=== PATIENT | male | born 1935 | race African-American/Black ===

== ENCOUNTER 2016-09-03 15:04 | Inpatient (IN) ==
[2016-09-03] MEDS ORDERED: ALBUTEROL 2.5 MG/3 ML NEB RESP TX PRN (21:46)
[2016-09-03] MEDS ORDERED: ONDANSETRON 4 MG/2 ML VIAL IV PRN (21:46)
[2016-09-03] MEDS ORDERED: hydrALAZINE 20 MG/1 ML VIAL ONE (22:03)
[2016-09-03] MEDS ORDERED: hydrALAZINE 20 MG/1 ML VIAL IV PRN (22:16)
[2016-09-03 22:34] LABS: Basophils % 0.1 % (0.0-0.8); Hematocrit 30.5 VOL% (42.0-52.0); Hemoglobin 10.4 GM/DL (14.0-18.0); Immature Granulocytes % 0.5 %; Immature Granulocytes Absolute 0.05 #; Lymphocytes # 1.9 10*3/uL (1.4-4.0); Lymphocytes % 18.1 % (21.2-54.2); Mean Corpuscular HGB Conc 34.1 GM/DL (32-36); Mean Corpuscular Hemoglobin 31 PG (27-34); Mean Corpuscular Volume 90.5 FL (87-102); Mean Platelet Volume 10.6 FL (9.6-12.0); Monocytes # 0.9 10*3/uL (0.11-0.8); Monocytes % 8.5 % (1.7-12.7); Neutrophils # 7.6 10*3/uL (1.4-7.4); Neutrophils % 72.8 % (38.7-73.9); Platelet Count 168 T/CUMM (130-400); Red Blood Count 3.37 MC/CUMM (3.8-5.5); Red Cell Distribution Width 13.3 % (9.3-17.3); White Blood Count 10.4 T/CUMM (4-12)
[2016-09-03 22:58] LABS: Calcium 8.3 MG/DL (8.5-10.1); Osmolality,Calculated 286.7 MOS/KG (273-304); Potassium 3.5 MMOL/L (3.5-5.1)
[2016-09-03] MEDS: SODIUM CHLORIDE 0.9% 1,000 ML IV SCH (23:05)
--- NOTE | 2016-09-03 23:32 | Hospitalist History & Physical ---
Assessment and Plan (1) Subdural hematoma Status: Acute Current Visit: No (2) Coronary artery disease Status: Acute Current Visit: No (3) Mental status change Status: Acute Assessment and plan: Our plan for this patient will be admitting him to our ICU. We will control his blood pressure. Can get PT OT and ST to evaluate him. We will also get Dr. Chawla input. Can repeat the CT scan in the morning. We will get psychotherapist social worker evaluation and input for rehab versus swing bed Current Visit: No History of Present Illness Chief complaint: Transfer from [facility] History of present illness: Mr. Espinal is a 81 year old male with past medical history of STEMI, coronary artery disease, and syncope who was admitted to our hospital on 09/01/2012. During the trans-for the patient from home to the ER he had apparently 3 shocks by EMS to defibrillate him. He was given Lovenox and aspirin 1 dose. His initial EKG did not show an acute ST elevation. He denied chest pain. A second EKG had a rhythm that did show a new ST elevation in the inferior leads. Patient was taken to the [facility]. The woods laborer revealed a complete occlusion of the right coronary artery in its mid segment but. He was treated with balloon angioplasty. No stent was placed due to subdural hematomas and the concern of giving additional anticoagulation. During the catheterization the patient had a mental status change became unresponsive which led to emergent intubation in the [facility]. The mental status changes may have been secondary to transient hypotension or the change in the subdural hematomas. He went back for repeat CT scan which showed enlargement of the acute/subacute subdural hematoma from 3 mm in size to 4.5 mm. We do not have neurosurgery or neurology available to the hospital at that time. Dr. Vergara contacted [facility] and he was transferred there on September 01. Patient was admitted to the neuro ICU at [facility]. He was evaluated by the neurosurgery team. He was able to be extubated. He was awake alert and following commands. He was oriented to self city in age. Patient does not need any surgical intervention according to the neurosurgery team. The decision was made to restart a 81 mg aspirin daily because the patient had a STEMI 2 days ago. I recommended that Plavix be restarted if no acute bleeding can be done in 1 week. He will have a follow-up appointment with neurosurgery team at 6 weeks. Patient was being transferred back to the [facility] on September 03. Patient was receiving OT PT and ST evaluation. There was some concern that he could not swallow. He will get combative at times. Home Medications Medication Instructions Recorded Confirmed Type Atorvastatin [Lipitor] 20 mg PO BEDTIME 05/31/16 09/01/16 History Furosemide Tab [Lasix Tab] 20 mg PO DAILY 05/31/16 09/01/16 History Omeprazole 20 mg PO BEDTIME 05/31/16 09/01/16 History Tamsulosin [Flomax] 0.4 mg PO BEDTIME 05/31/16 09/01/16 History Valsartan 160 mg PO BEDTIME 05/31/16 09/01/16 History levETIRAcetam [Levetiracetam] 500 mg PO BID 05/31/16 09/01/16 History Megestrol Liquid [Megace Liquid] 10 ml PO BID 06/16/16 09/01/16 History Clorazepate [Tranxene] 3.75 mg PO DAILY PRN 09/01/16 09/01/16 History Allergies Allergy/AdvReac Type Severity Reaction Status Date / Time No Known Allergies Allergy Unverified 06/16/16 12:28 Medical,Surgical,& Family Hx - Medical History Cardio: History of: Cardiac Dysrhythmia, Cerebrovascular Disease, CHF, CAD, Hypertension, [place] No history of: Congenital Heart Disease, Pacemaker, PVD, Valvular Heart Disease, Cardiovascular Problems Neurology: History of: Cerebral Hemorrhage, Cerebrovascular Accident (multiple strokes), Seizures No history of: Brain Aneurysm, Cerebral Palsy, Dementia, Migraine, Multiple Sclerosis, Parkinson's Disease, Peripheral Neuropathy, TIA, Vertigo, Neurologocal Cancer Endocrine: History of: Dyslipidemia Renal: No history of: Renal (Kidney) Cancer, Dialysis, Renal Failure, Renal Problems Genitourinary: History of: Prostate Problems (prostate cancer) No history of: Bladder Problem, Kidney Stones, Recurring Urinary Tract Infections, Genitourinary Cancer, Problems Other: History of: Miscellaneous Medical Problems (DVT) - Surgical History Cardiac Surgeries: Sugical HX of: Cardiac Catheterization Patient Denies: Femoral-Popliteal Bypass Graft, Cardiac Surgery, Carotid Endarterectomy, Internal Defibrillator, Vascular Access Devices Thoracic Surgeries: Patient denies;: Kidney (Renal Surgery), Lithotripsy, Nephrectomy, Organ Transplant Neurologic Surgeries: Surgical HX of: Cerebral Hemorrhage Patient denies: Brain Aneurysm, Neurologic Surgery HEENT Surgeries: Patient denies: Carotid Endarterectomy Abdominal Surgeries: Patient denies: Splenectomy Reproductive Surgeries: Patient denies;: Cystoscopy, Genitourinary Surgery, Prostate Surgery - Family History Additional Family History: Unable to obtain - Social History Smoking Status: Never smoker 12 point system: reviewed and no additional remarkable complaints except as stated Exam - Constitutional Vitals: Period Temp Pulse Resp BP Sys/Mcfarlane Pulse Ox Last 24 Hr 97.8 F 95-100 18-18 111-124/67-69 General appearance: normal weight - Head Head exam: Present: normal inspection - Eye Eye exam: Present: EOMI Pupils: Present: ALLEN - ENT ENT exam: Present: normal exam - Neck Neck exam: Present: normal inspection - Respiratory Respiratory exam: Present: clear to auscultation bilaterally - Cardiovascular Cardiovascular exam: Present: regular rate and rhythm - GI/Abdominal GI/Abdominal exam: Present: normal bowel sounds - Extremities Exam Extremities exam: Present: normal inspection - Back Exam Back exam: Present: normal inspection - Neurological Exam Neurological exam: Present: other (Patient has obvious weakness on the left side. He is hand is in a crypt position. 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 There is obvious weakness in his left lower extremity and his right lower extremity. Patient seems to be confused about following commands.) Results - Labs CBC & BMP: 09/03/16 22:09 09/03/16 22:09
[2016-09-04] MEDS ORDERED: POTASSIUM CHLORIDE RIDER 20 MEQ in PREMIX 1 EACH IV PRN
[2016-09-04] MEDS ORDERED: POTASSIUM CHLORIDE RIDER 10 MEQ in PREMIX 1 EACH IV PRN
[2016-09-04] MEDS ORDERED: CLORAZEPATE 3.75 MG TABLET PO PRN (02:00)
[2016-09-04] MEDS: ATENOLOL 25 MG TABLET PO SCH (09:07)
[2016-09-04] MEDS: FUROSEMIDE 20 MG TABLET PO SCH (09:07)
[2016-09-04] MEDS: ATORVASTATIN 80 MG TABLET PO SCH (09:07)
[2016-09-04] MEDS: SODIUM CHLORIDE 0.9% 1,000 ML IV SCH (09:07)
[2016-09-04] MEDS: levETIRAcetam 500 MG TABLET PO SCH ×2 (09:07→21:30)
[2016-09-04] MEDS: ASPIRIN CHEW 81 MG TABLET PO SCH (09:07)
[2016-09-04 12:58] LABS: Apearance,Urine CLEAR (Clear); Bilirubin,Urine Negative (Negative); Blood, Urine Moderate mg/dL (Negative); Glucose,Urine (UA) Negative (Negative); Hyaline Casts,Urine 2 /LPF (0-3); Ketones,Urine 5 mg/dL (Negative); Mucus,Urine Occasional /LPF (Occasional); Nitrite,Urine Negative (Negative); Protein,Urine Negative; RBC,Urine 6 /HPF (0-4); Squamous Epithelial Cell,Urine Occasional /HPF (0-10); Urine Color Straw (Yellow); Urine Specific Gravity 1.009 (1.001-1.035); Urine Urobilinogen < 2.0 EU/DL (0.2-1.0); WBC,Urine 5 /HPF (0-6)
--- NOTE | 2016-09-04 13:23 | Hospitalist Progress Note ---
Assessment and Plan (1) Acute ST elevation myocardial infarction (STEMI) of inferior wall Status: Acute Assessment and plan: Hemodynamically stable. Continue with blood pressure control, high intensity statin, ASA. Low dose diuretic therapy with furosemide. No acute issues noted. Current Visit: Yes (2) Subdural hematoma Status: Acute Assessment and plan: Stable after NSGY evaluation at [facility]. Continuing to monitor for any acute mental status changes. Only on Aspirin. No anticoagulation. Patient is hemodynamically stable as well as cognitively stable. Will transfer out of the ICU today with a plan to work on swing bed/short term rehab. Continue with PT/ OT. Current Visit: Yes (3) Coronary artery disease Status: Acute Assessment and plan: As above Current Visit: Yes (4) Mental status change Status: Resolved Assessment and plan: Resolved. Current Visit: No Hospitalist: Subjective Interval history: Mr. Espinal is a 81 year old male with a relatively recent past medical history of STEMI (s/p balloon angioplasty- no stent was placed due to subdural hematomas and the concern of giving additional anticoagulation) initially admitted for management of STEMI. He developed mental status changes and was subsequently noted to have an enlarging subacute subdural hematoma. He was stabilized from a cardiac standpoint but was transferred to [facility] for NSGY evaluation of the subdural hematoma. After stabilization there, he was transferred back to [place] to the ICU (ICU to ICU transfer) for further care and disposition. He is currently hemodynamically stable and is awaiting short term rehab. He has no complaints and states he feels well. Exam - Constitutional Vitals: Period Temp Pulse Resp BP Sys/Mcfarlane Pulse Ox Last 24 Hr 97.8 F-98.9 F 86-102 14-24 111-166/67-114 93-99 General appearance: no acute distress - Head Head exam: Present: normal inspection, normocephalic, atraumatic - Respiratory Respiratory exam: Present: clear to auscultation bilaterally - Cardiovascular Cardiovascular exam: Present: regular rate and rhythm - GI/Abdominal GI/Abdominal exam: Present: normal bowel sounds - Neurological Exam Neurological exam: Present: alert - Psychiatric Psychiatric exam: Present: normal affect, normal mood - Skin Skin exam: Present: normal color, warm, dry Results - Labs CBC & BMP: 09/03/16 22:09 09/03/16 22:09
--- NOTE | 2016-09-04 16:47 | Neurology Consult Note ---
History of Present Illness History of present illness: Patient is unable to provide me any history. History basically obtained from his daughter Mr. Espinal is a 81 year old male with a relatively recent past medical history of STEMI (s/p balloon angioplasty- no stent was placed due to subdural hematomas and the concern of giving additional anticoagulation) initially admitted for management of STEMI. He developed mental status changes and was subsequently noted to have an enlarging subacute subdural hematoma on the CAT scan head. He was stabilized from a cardiac standpoint but was transferred to [facility] for NSGY evaluation of the subdural hematoma. After stabilization there, he was transferred back to [place] to the ICU for further care and disposition. He is currently hemodynamically stable. He has no complaints and states he feels well. Upon further questioning daughter reported that he fell first time in December 2015 and developed subdural hematoma bilaterally. He went to [facility] back then as well. They did not do any intervention back then. Ever since he has been pretty much bedbound and dependent. He cannot even sit up by himself at the baseline Home Medications Medication Instructions Recorded Confirmed Type Atorvastatin [Lipitor] 80 mg PO DAILY 05/31/16 09/04/16 History Furosemide Tab [Lasix Tab] 20 mg PO DAILY 05/31/16 09/04/16 History Tamsulosin [Flomax] 0.4 mg PO BEDTIME 05/31/16 09/04/16 History Valsartan 160 mg PO BEDTIME 05/31/16 09/04/16 History levETIRAcetam [Levetiracetam] 500 mg PO BID 05/31/16 09/04/16 History Megestrol Liquid [Megace Liquid] 10 ml PO BID 06/16/16 09/04/16 History Clorazepate [Tranxene] 3.75 mg PO DAILY PRN 09/01/16 09/04/16 History Aspirin Chew Tab 81 mg PO DAILY 09/04/16 09/04/16 History Atenolol 25 mg PO DAILY 09/04/16 09/04/16 History Ergocalciferol (Vitamin D2) 50,000 unit PO Q709/04/16 09/04/16 History [Vitamin D2] Valsartan [Diovan] 160 mg PO BEDTIME 09/04/16 09/04/16 History Allergies Allergy/AdvReac Type Severity Reaction Status Date / Time No Known Allergies Allergy Unverified 06/16/16 12:28 ROS unobtainable: due to mental status Medical,Surgical,& Family Hx - Medical History Cardio: History of: Cardiac Dysrhythmia, Cerebrovascular Disease, CHF, CAD, Hypertension, [place] No history of: Congenital Heart Disease, Pacemaker, PVD, Valvular Heart Disease, Cardiovascular Problems Neurology: History of: Cerebral Hemorrhage, Cerebrovascular Accident (multiple strokes), Seizures No history of: Brain Aneurysm, Cerebral Palsy, Dementia, Migraine, Multiple Sclerosis, Parkinson's Disease, Peripheral Neuropathy, TIA, Vertigo, Neurologocal Cancer Endocrine: History of: Dyslipidemia Renal: No history of: Renal (Kidney) Cancer, Dialysis, Renal Failure, Renal Problems Genitourinary: History of: Prostate Problems (prostate cancer) No history of: Bladder Problem, Kidney Stones, Recurring Urinary Tract Infections, Genitourinary Cancer, Problems Other: History of: Miscellaneous Medical Problems (DVT) - Surgical History Cardiac Surgeries: Sugical HX of: Cardiac Catheterization Patient Denies: Femoral-Popliteal Bypass Graft, Cardiac Surgery, Carotid Endarterectomy, Internal Defibrillator, Vascular Access Devices Thoracic Surgeries: Patient denies;: Kidney (Renal Surgery), Lithotripsy, Nephrectomy, Organ Transplant Neurologic Surgeries: Surgical HX of: Cerebral Hemorrhage Patient denies: Brain Aneurysm, Neurologic Surgery HEENT Surgeries: Patient denies: Carotid Endarterectomy Abdominal Surgeries: Patient denies: Splenectomy Reproductive Surgeries: Patient denies;: Cystoscopy, Genitourinary Surgery, Prostate Surgery - Social History Smoking Status: Never smoker Exam - Constitutional Vitals: Period Temp Pulse Resp BP Sys/Mcfarlane Pulse Ox Last 24 Hr 97.8 F-98.9 F 86-102 14-24 111-166/67-114 93-99 Exam: GENERAL: Patient is in no acute distress. NECK: Neck is supple. There is no JVD. No carotid bruits present. No thyroid masses. CVS: First and second heart sounds are normal. There is no S3 present. Regular rate and rhythm. RESPIRATORY: Lungs are clear to auscultation without any rales or rhonchi. ABDOMEN: Soft and non-tender. Bowel sounds are present. There is no hepatosplenomegaly. EXT: There is no palpable edema. Peripheral pulses are present. Skin: No rashes Central Nervous system: General: Awake Speech: Fluent Comprehension: Fair Facial expressions: Normal Cranial Nerves: CN1/Olfactory: Normal CN II/ Optic: Normal, Visual Dent unreliable CN III, and : ALLEN & EOMI CN V: Normal & intact CN VII: face is symmetric CNVIII: Normal CN XI/X/XI/XII: Intact and Normal Motor: Bulk and Tone is normal. Strength in the upper extremities 2-3/5 Strength in the lower extremities 1-2/5 Sensory: Unreliable and cannot be assessed Reflexes: 2+ and symmetrical Cerebellar function: Cannot be assessed Toes: Equivocal Gait: Cannot be assessed Results - Labs CBC & BMP: 09/03/16 22:09 09/03/16 22:09 Assessment and Plan (1) Bilateral subdural hematomas Status: Acute Assessment and plan: Continue supportive management at this time. Watch for seizures. Patient is back to his baseline as per family. He is quite debilitated at the baseline We will probably repeat CAT scan in the next couple of weeks. Thank you for the consult Current Visit: Yes
[2016-09-04] MEDS ORDERED: TAMSULOSIN 0.4 MG CAPSULE PO SCH (21:00)
[2016-09-04] MEDS ORDERED: VALSARTAN 160 MG TABLET PO SCH (21:00)
--- NOTE | 2016-09-05 06:56 | CT Report ---
CT head/brain wo con Indication: Subdural hematoma Comparison: CT brain dated September 01, 2016 Technique: Multiple axial tomographic images of the brain were obtained without the use of intravenous contrast. Findings: Continued evolution of bilateral subdural hematomas which minimally decreased in size and appear more hypodense than on comparison study. These measure up to 6 mm within the high frontal region bilaterally. The acute subdural hemorrhage demonstrated on previous exam along the right tentorium is no longer visualized. Focal hypoattenuation again demonstrated within the right occipital lobe which may reflect age-indeterminate infarct but appears similar to prior examination. No new evidence of hemorrhage. Midline structures are nondisplaced. Moderate global volume loss present. Moderate periventricular and subcortical hypoattenuation noted which is nonspecific but consistent with chronic microvascular ischemic change. Demyelinating process and vasculitis less likely considerations. Atherosclerotic calcifications demonstrated. The visualized paranasal sinuses and bilateral mastoid air cells are essentially clear. IMPRESSION: Continued evolution of bilateral subdural hematomas which minimally decreased in size and appear more hypodense than on comparison study. These measure up to 6 mm within the high frontal region bilaterally. The acute subdural hemorrhage demonstrated on previous exam along the right tentorium is no longer visualized. Focal hypoattenuation again demonstrated within the right occipital lobe which may reflect age-indeterminate infarct but appears similar to prior examination. Consider MRI for further evaluation. No new evidence of hemorrhage. Probable chronic microvascular ischemic change and volume loss. The CT exam was performed using one or more of the following dose reduction techniques: Automated exposure control, adjustment of the mA and/or kV according to patient size, or use of iterative reconstruction technique. PROCEDURE INTERPRETED AT [facility] DEPARTMENT OF RADIOLOGY Final Report Signed by: Dr Logan Nogueira
--- NOTE | 2016-09-05 10:02 | Hospitalist Progress Note ---
Assessment and Plan (1) Acute ST elevation myocardial infarction (STEMI) of inferior wall Status: Acute Assessment and plan: Patient presented September 01 with acute myocardial infarction complicated by ventricular fibrillation ventricular tachycardia and syncopal episode. Balloon angioplasty of the right coronary artery was performed at that time. Current Visit: Yes (2) Subdural hematoma Status: Chronic Assessment and plan: Patient has had known subdural hematomas with seizure disorder. There was an increase in size associated with the cardiac treatment noted above. He was transferred to [place] where he was successfully managed nonsurgically. Current Visit: Yes Hospitalist: Subjective Interval history: 81-year-old male presenting on 01 September with a syncopal episode at home. In route to the hospital the patient was observed to have ventricular tachycardia/ ventricular fibrillation on 3 occasions requiring defibrillation. He was taken urgently to the cardiac catheterization laboratory where he was found to have a total occlusion of the right coronary artery. As he was known to have a subdural hematoma balloon angioplasty was performed without standing. Path report he had some deterioration in his mental status during the procedure and follow-up CT scan demonstrated an increase in subdural hematoma dimension from 3 mm to 4.5 mm. He was referred to [place] where he had been seen previously for his subdural hematomas recommendations regarding acute management he was transferred back to this facility without requirement for surgical intervention. He is now 4 days status post event however is still unable to pass a swallowing study done earlier today. Patient is mentioned has chronic cerebrovascular disease with history of seizure disorders. He has had active treatment for prostate disease and hypertension in addition to his underlying coronary artery disease. He was transferred from the ICU after 24 hours of stable observation. His recorded vital signs are. He is afebrile. Exam - Constitutional Vitals: Period Temp Pulse Resp BP Sys/Mcfarlane Pulse Ox Last 24 Hr 97.2 F-98.9 F 83-95 16-20 118-143/66-114 93-100 General appearance: normal weight - Respiratory Respiratory exam: Present: clear to auscultation bilaterally. Absent: rales, rhonchi, wheezes - Cardiovascular Cardiovascular exam: Present: regular rate and rhythm - GI/Abdominal GI/Abdominal exam: Present: normal bowel sounds. Absent: tenderness, rebound - Extremities Exam Extremities exam: Absent: edema - Neurological Exam Neurological exam: Present: alert Results - Labs CBC & BMP: 09/03/16 22:09 09/03/16 22:09
[2016-09-05] MEDS: ATORVASTATIN 80 MG TABLET PO SCH (10:56)
[2016-09-05] MEDS: levETIRAcetam 500 MG TABLET PO SCH (10:56)
[2016-09-05] MEDS: ASPIRIN CHEW 81 MG TABLET PO SCH (10:56)
[2016-09-05] MEDS: ATENOLOL 25 MG TABLET PO SCH (10:57)
[2016-09-05] MEDS: FUROSEMIDE 20 MG TABLET PO SCH (10:57)
[2016-09-05] MEDS: DEXT 5% LACT RING KCL 20 MEQ 20 MEQ/1,000 ML BAG IV SCH (13:03)
[2016-09-05] MEDS: PROPRANOLOL 1 MG/1 ML VIAL IV SCH ×2 (15:29→20:59)
--- NOTE | 2016-09-05 16:11 | Neurology Progress Note ---
Neurology - PN : Subjective Interval history: Patient is more alert and awake. Following commands. Failed swallowing study. Repeat swallowing study is due tomorrow morning. Patient never had seizure in his life. He was started on Keppra precautionary back in October 2015. Patient stays quite sleepy during the day. Exam (Progress Note) - Constitutional Vitals: Period Temp Pulse Resp BP Sys/Mcfarlane Pulse Ox Last 24 Hr 97.1 F-98.3 F 85-89 18-20 116-138/62-78 94-100 Exam: GENERAL: Patient is in no acute distress. NECK: Neck is supple. There is no JVD. No carotid bruits present. No thyroid masses. CVS: First and second heart sounds are normal. There is no S3 present. Regular rate and rhythm. RESPIRATORY: Lungs are clear to auscultation without any rales or rhonchi. ABDOMEN: Soft and non-tender. Bowel sounds are present. There is no hepatosplenomegaly. EXT: There is no palpable edema. Peripheral pulses are present. Skin: No rashes Central Nervous system: General: Awake Speech: Fluent Comprehension: Fair Facial expressions: Normal Cranial Nerves: CN1/Olfactory: Normal CN II/ Optic: Normal, Visual Dent unreliable CN III, and : ALLEN & EOMI CN V: Normal & intact CN VII: face is symmetric CNVIII: Normal CN XI/X/XI/XII: Intact and Normal Motor: Bulk and Tone is normal. Strength in the upper extremities 2-3/5 Strength in the lower extremities 1-2/5 Sensory: Unreliable and cannot be assessed Reflexes: 2+ and symmetrical Cerebellar function: Cannot be assessed Toes: Equivocal Gait: Cannot be assessed Results - Labs CBC & BMP: 09/03/16 22:09 09/03/16 22:09 Assessment and Plan (1) Bilateral subdural hematomas Status: Acute Assessment and plan: We will cut back Keppra to once a day p.o. 500 mg. Recommend to taper it down in next couple weeks No further neurological intervention needed Sign off please call as needed Current Visit: Yes Specialty Discharge - Follow Up or Referrals Follow up with: Dale Chawla MD [Physician] - 1 Month
[2016-09-06] MEDS: PROPRANOLOL 1 MG/1 ML VIAL IV SCH ×4 (02:15→21:21)
[2016-09-06] MEDS: DEXT 5% LACT RING KCL 20 MEQ 20 MEQ/1,000 ML BAG IV SCH ×2 (02:16→21:20)
[2016-09-06 06:02] LABS: Osmolality,Calculated 290.4 MOS/KG (273-304)
--- NOTE | 2016-09-06 08:27 | Hospitalist Progress Note ---
Assessment and Plan (1) Acute ST elevation myocardial infarction (STEMI) of inferior wall Status: Acute Assessment and plan: Patient presented September 01 with acute myocardial infarction complicated by ventricular fibrillation/ventricular tachycardia and syncopal episode. Balloon angioplasty of the right coronary artery was performed at that time. Current Visit: Yes (2) Subdural hematoma Status: Chronic Assessment and plan: Patient has had known subdural hematomas with seizure disorder. There was an increase in size associated with the cardiac treatment noted above. He was transferred to [place] where he was successfully managed nonsurgically. There is been some maturation of the hematoma which is currently reported 6 mm is contrasted to 4.5 mm following catheterization. He is developed new swallowing dysfunction with failure on 2 successive day swallowing studies. Current Visit: Yes Hospitalist: Subjective Interval history: 81-year-old male who presented on 01 September with a syncopal episode at home in route to the hospital he was found to have ventricular tachycardia ventricular fibrillation requiring resuscitation he was taken urgently to the cardiac catheterization laboratory where he was found to have a total occlusion of the right coronary artery corresponding to ST segment elevation in the inferior leads. His acute ejection fraction was recorded at 45%. He underwent balloon angioplasty as he had had a history of a chronic 3 mm bilateral subdural hematoma. Postprocedure there was altered mental status with CT scan of the head showing an increase in size to 4.5 mm per he was referred to [place] where he was managed conservatively and was readmitted here. Repeat imaging yesterday demonstrated 6 mm hematoma. For the first time he has been noted to have swallowing dysfunction on 2 separate studies. He was converted to IV fluids yesterday with discontinuance of oral medication. He is currently on IV Inderal which he is tolerating well and in addition this has helped with frequent ventricular premature depolarizations by the current monitor strips. He was chronically on Keppra and this has been converted to IV. We have not been able to continue his aspirin or lipid-lowering medications. We have discussed NG tube and a PEG tube placement with the family recognized any that he is close to a recent myocardial infarction which may limit appropriateness of PEG tube placement and desire to avoid increased intracranial pressures. The family feels certain that he will eventually swallow normally and would like to delay that decision continuing IV support in the interim. Exam - Constitutional Vitals: Period Temp Pulse Resp BP Sys/Mcfarlane Pulse Ox Last 24 Hr 97.1 F-98.4 F 83-89 18-20 116-146/62-78 97-100 General appearance: normal weight - Respiratory Respiratory exam: Present: clear to auscultation bilaterally. Absent: rales, rhonchi, wheezes - Cardiovascular Cardiovascular exam: Present: regular rate and rhythm - GI/Abdominal GI/Abdominal exam: Present: normal bowel sounds. Absent: tenderness - Extremities Exam Extremities exam: Absent: edema - Neurological Exam Neurological exam: Present: alert. Absent: oriented X3 Results - Labs CBC & BMP: 09/03/16 22:09 09/06/16 05:11 Specialty Discharge - Follow Up or Referrals Follow up with: Dale Chawla MD [Physician] - 1 Month
[2016-09-06] MEDS: POTASSIUM CHLORIDE RIDER 20 MEQ in PREMIX 1 EACH IV SCH ×2 (09:11→11:15)
[2016-09-07] MEDS: PROPRANOLOL 1 MG/1 ML VIAL IV SCH ×4 (03:10→21:42)
[2016-09-07] MEDS: DEXT 5% LACT RING KCL 20 MEQ 20 MEQ/1,000 ML BAG IV SCH (03:11)
[2016-09-07 06:30] LABS: Calcium 7.6 MG/DL (8.5-10.1); Magnesium 1.9 MG/DL (1.8-2.4); Osmolality,Calculated 289.4 MOS/KG (273-304); Potassium 3.4 MMOL/L (3.5-5.1)
--- NOTE | 2016-09-07 17:17 | Hospitalist Progress Note ---
Hospitalist: Subjective Interval history: No acute events overnight. Passes swallow evaluation. Patient awake and alert today. Exam - Constitutional Vitals: Period Temp Pulse Resp BP Sys/Mcfarlane Pulse Ox Last 24 Hr 97.3 F-98.1 F 89-101 18-20 125-153/64-86 95-99 General appearance: over weight - Head Head exam: Present: normocephalic, atraumatic - Eye Eye exam: Present: EOMI Pupils: Present: ALLEN - ENT ENT exam: Present: normal exam - Neck Neck exam: Present: normal inspection - Respiratory Respiratory exam: Present: clear to auscultation bilaterally. Absent: wheezes - Cardiovascular Cardiovascular exam: Present: regular rate and rhythm - GI/Abdominal GI/Abdominal exam: Present: normal bowel sounds, soft, other (scrotal swelling) . Absent: tenderness - Extremities Exam Extremities exam: Present: edema - Back Exam Back exam: Present: normal inspection - Neurological Exam Neurological exam: Present: alert - Psychiatric Psychiatric exam: Present: normal affect, normal mood - Skin Skin exam: Present: warm, intact Results - Labs CBC & BMP: 09/03/16 22:09 09/07/16 05:00 Specialty Discharge - Follow Up or Referrals Follow up with: Dale Chawla MD [Physician] - 1 Month
[2016-09-08] MEDS: DEXT 5% LACT RING KCL 20 MEQ 20 MEQ/1,000 ML BAG IV SCH ×2 (00:24→14:11)
[2016-09-08] MEDS: PROPRANOLOL 1 MG/1 ML VIAL IV SCH ×3 (01:51→14:33)
[2016-09-08 07:28] LABS: Calcium 7.6 MG/DL (8.5-10.1); Magnesium 1.8 MG/DL (1.8-2.4); Osmolality,Calculated 286.6 MOS/KG (273-304); Potassium 3.5 MMOL/L (3.5-5.1)
--- NOTE | 2016-09-08 16:20 | Hospitalist Progress Note ---
Assessment and Plan (1) Acute ST elevation myocardial infarction (STEMI) of inferior wall Status: Acute Assessment and plan: Complicated by ventricular fibrillation/ventricular tachycardia s/p ballon angioplasty of right coronary artery Current Visit: Yes (2) Subdural hematoma Status: Chronic Assessment and plan: Increased in size with cardiac issues Current Visit: Yes Hospitalist: Subjective Interval history: No acute events overnight. Patient's daughter present at time of exam. She reports that the patient has a good appetite. Restarting his home medications. Exam - Constitutional Vitals: Period Temp Pulse Resp BP Sys/Mcfarlane Pulse Ox Last 24 Hr 97.1 F-98.1 F 96-104 18-20 119-144/70-88 93-97 General appearance: normal weight - Head Head exam: Present: normocephalic, atraumatic - Eye Eye exam: Present: EOMI Pupils: Present: ALLEN - ENT ENT exam: Present: normal exam - Neck Neck exam: Present: normal inspection - Respiratory Respiratory exam: Present: clear to auscultation bilaterally. Absent: rhonchi, wheezes - Cardiovascular Cardiovascular exam: Present: regular rate and rhythm - GI/Abdominal GI/Abdominal exam: Present: normal bowel sounds, soft. Absent: tenderness, rebound - Extremities Exam Extremities exam: Present: normal inspection - Back Exam Back exam: Present: normal inspection - Neurological Exam Neurological exam: Present: alert, altered - Psychiatric Psychiatric exam: Present: normal affect, normal mood - Skin Skin exam: Present: warm, intact Results - Labs CBC & BMP: 09/03/16 22:09 09/08/16 06:06 Specialty Discharge - Follow Up or Referrals Follow up with: Dale Chawla MD [Physician] - 1 Month
[2016-09-08 18:45] LABS: Apearance,Urine CLOUDY (Clear); Bilirubin,Urine Negative (Negative); Blood, Urine Large mg/dL (Negative); Glucose,Urine (UA) Negative (Negative); Ketones,Urine Negative (Negative); Mucus,Urine Occasional /LPF (Occasional); Nitrite,Urine Negative (Negative); Protein,Urine 30 MG/DL; RBC,Urine 209 /HPF (0-4); Urine Color Red (Yellow); Urine Specific Gravity 1.011 (1.001-1.035); WBC,Urine 66 /HPF (0-6)
[2016-09-08] MEDS: levETIRAcetam 500 MG TABLET PO SCH (20:26)
[2016-09-08] MEDS: CLORAZEPATE 3.75 MG TABLET PO SCH (20:26)
[2016-09-08] MEDS: VALSARTAN 160 MG TABLET PO SCH (20:26)
[2016-09-08] MEDS: TAMSULOSIN 0.4 MG CAPSULE PO SCH (20:27)
[2016-09-09] MEDS: DEXT 5% LACT RING KCL 20 MEQ 20 MEQ/1,000 ML BAG IV SCH ×2 (04:33→18:44)
[2016-09-09 07:10] LABS: Basophils % 0.2 % (0.0-0.8); Eosinophils # 0.1 10*3/uL (0.0-0.87); Eosinophils % 1.9 % (0.00-10.9); Hematocrit 26.4 VOL% (42.0-52.0); Hemoglobin 8.9 GM/DL (14.0-18.0); Immature Granulocytes % 0.8 %; Immature Granulocytes Absolute 0.05 #; Lymphocytes # 1.7 10*3/uL (1.4-4.0); Lymphocytes % 26.7 % (21.2-54.2); Mean Corpuscular HGB Conc 33.7 GM/DL (32-36); Mean Corpuscular Hemoglobin 31 PG (27-34); Mean Platelet Volume 10.8 FL (9.6-12.0); Monocytes # 0.7 10*3/uL (0.11-0.8); Monocytes % 11.2 % (1.7-12.7); Neutrophils # 3.7 10*3/uL (1.4-7.4); Neutrophils % 59.2 % (38.7-73.9); Platelet Count 105 T/CUMM (130-400); Red Blood Count 2.87 MC/CUMM (3.8-5.5); Red Cell Distribution Width 13.2 % (9.3-17.3); White Blood Count 6.2 T/CUMM (4-12)
[2016-09-09 07:53] LABS: Calcium 7.5 MG/DL (8.5-10.1); Magnesium 1.6 MG/DL (1.8-2.4); Potassium 3.6 MMOL/L (3.5-5.1)
--- NOTE | 2016-09-09 09:07 | CT Report ---
CT of the head without contrast. Indication: Mental status change. Comparison: September 05, 2016. There is heavy calcific plaque present within the intracranial internal carotid arteries and the left vertebral artery. 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 Myqx-xj-qkjttduh changes are present within the temporomandibular joints. Mild mucosal thickening within the paranasal sinuses. There is generalized prominence of the ventricles and sulci consistent with atrophy of aging. There are prominent areas of low density within the periventricular white matter, consistent with chronic microvascular ischemia. There is cortical thinning and low density in the right occipital lobe, similar to the previous exam. No acute hemorrhage. No midline shift. No change in the multiple subacute to chronic subdural hematomas. No evidence of acute rebleed. Impression: 1. Generalized atrophy. 2. Multiple subdural hematomas of varying ages, stable without evidence of acute rebleed. 3. Findings of chronic microvascular ischemia. 4. Edema versus gliosis from stroke in the right occipital lobe. Short-term follow-up or MRI recommended for further evaluation of this area. The CT exam was performed using one or more of the following dose reduction techniques: Automated exposure control, adjustment of the mA and/or kV according to patient size, or use of iterative reconstruction technique. PROCEDURE INTERPRETED AT [facility] DEPARTMENT OF RADIOLOGY Final Report Signed by: Dr. Analia Corona
[2016-09-09] MEDS: cefTRIAXone 1,000 MG in SODIUM CHLORIDE 0.9% 100 ML IV SCH (09:37)
[2016-09-09] MEDS: ATENOLOL 25 MG TABLET PO SCH (10:05)
[2016-09-09] MEDS: ATORVASTATIN 40 MG TABLET PO SCH (10:05)
[2016-09-09] MEDS: levETIRAcetam 500 MG TABLET PO SCH ×2 (10:05→20:35)
[2016-09-09] MEDS: VALSARTAN 160 MG TABLET PO SCH ×2 (10:05→20:35)
[2016-09-09] MEDS: ASPIRIN CHEW 81 MG TABLET PO SCH (10:05)
[2016-09-09] MEDS: FUROSEMIDE 20 MG TABLET PO SCH (10:06)
--- NOTE | 2016-09-09 13:17 | Hospitalist Progress Note ---
Assessment and Plan (1) Acute ST elevation myocardial infarction (STEMI) of inferior wall Status: Acute Assessment and plan: Complicated by ventricular fibrillation/ventricular tachycardia s/p ballon angioplasty of right coronary artery Current Visit: Yes (2) Subdural hematoma Status: Chronic Assessment and plan: Increased in size with cardiac issues CT head today without acute change, is noted to have edema vs gliosis wiht recs for f/u ct or mri Will order MRI Current Visit: Yes (3) Urinary tract infection Status: Acute Assessment and plan: Start rocephin Patient does have dumont catheter, but afraid to remove it now with the amount of scrotal and penile edema that he has Current Visit: Yes (4) Anasarca Status: Acute Assessment and plan: Most notably in scrotal area Lasix was held due to difficulty swallowing, restarted yesterday Will give extra dose of IV lasix today Current Visit: Yes Hospitalist: Subjective Interval history: No acute events overnight. Noted to have a mental status change this morning by nursing staff, he was confused and agitated. CT head was performed without acute change. On my exam today, he was oriented to person and place. He is noted to have worsening of his scrotal edema. Exam - Constitutional Vitals: Period Temp Pulse Resp BP Sys/Mcfarlane Pulse Ox Last 24 Hr 97.7 F-99.6 F 69-101 16-20 110-138/65-87 90-98 General appearance: normal weight - Head Head exam: Present: normocephalic, atraumatic - Eye Eye exam: Present: EOMI Pupils: Present: ALLEN - ENT ENT exam: Present: normal exam - Neck Neck exam: Present: normal inspection - Respiratory Respiratory exam: Present: clear to auscultation bilaterally. Absent: rhonchi, wheezes - Cardiovascular Cardiovascular exam: Present: regular rate and rhythm - GI/Abdominal GI/Abdominal exam: Present: normal bowel sounds, soft. Absent: tenderness, rebound - Extremities Exam Extremities exam: Present: edema - Back Exam Back exam: Present: normal inspection - Neurological Exam Neurological exam: Present: alert - Psychiatric Psychiatric exam: Present: normal affect, normal mood - Skin Skin exam: Present: warm, intact Results - Labs CBC & BMP: 09/09/16 04:00 09/09/16 06:33 Specialty Discharge - Follow Up or Referrals Follow up with: Dale Chawla MD [Physician] - 1 Month
[2016-09-09] MEDS ORDERED: FUROSEMIDE 40 MG/4 ML VIAL IV ONE (13:22)
--- NOTE | 2016-09-09 16:30 | EKG Report ---
Stationary ECG Study [facility] Test Date: 09/09/2016 4:31:22 PM Pat Name: SYLVIA KAUR Department: Room: 231 Gender: M Chancellor: Juan CARRASCO CRT : 1935 Requested by: Cassie Velázquez Order Number: [id number] Reading MD: YENNY WALTERS Intervals [place] Rate: 94 P: 36 IN: 124 QRS: 28 QRSD: 94 T: -21 QT: 371 QTc: 422 Interpretive Statements SINUS RHYTHM WITH OCCASIONAL VENTRICULAR PREMATURE COMPLEXES NONSPECIFIC T-WAVE ABNORMALITY Electronically Signed On 09-10-16 10:41:07 CDT by YENNY WALTERS [id number]
[2016-09-09] MEDS: CLORAZEPATE 3.75 MG TABLET PO SCH (20:35)
[2016-09-09] MEDS: TAMSULOSIN 0.4 MG CAPSULE PO SCH (20:35)
[2016-09-10 06:20] LABS: Basophils % 0.1 % (0.0-0.8); Eosinophils # 0.2 10*3/uL (0.0-0.87); Hematocrit 27.7 VOL% (42.0-52.0); Hemoglobin 9.3 GM/DL (14.0-18.0); Immature Granulocytes % 1.1 %; Immature Granulocytes Absolute 0.09 #; Lymphocytes % 24.3 % (21.2-54.2); Mean Corpuscular HGB Conc 33.6 GM/DL (32-36); Mean Corpuscular Hemoglobin 31 PG (27-34); Mean Corpuscular Volume 91.7 FL (87-102); Mean Platelet Volume 10.3 FL (9.6-12.0); Monocytes # 0.9 10*3/uL (0.11-0.8); Monocytes % 10.8 % (1.7-12.7); Neutrophils # 5.2 10*3/uL (1.4-7.4); Neutrophils % 61.7 % (38.7-73.9); Platelet Count 139 T/CUMM (130-400); Red Blood Count 3.02 MC/CUMM (3.8-5.5); Red Cell Distribution Width 13.1 % (9.3-17.3); White Blood Count 8.4 T/CUMM (4-12)
[2016-09-10 06:42] LABS: Calcium 7.5 MG/DL (8.5-10.1); Magnesium 1.7 MG/DL (1.8-2.4); Osmolality,Calculated 279.1 MOS/KG (273-304)
[2016-09-10] MEDS: DEXT 5% LACT RING KCL 20 MEQ 20 MEQ/1,000 ML BAG IV SCH (08:55)
[2016-09-10] MEDS: levETIRAcetam 500 MG TABLET PO SCH ×2 (08:58→20:37)
[2016-09-10] MEDS: cefTRIAXone 1,000 MG in SODIUM CHLORIDE 0.9% 100 ML IV SCH (08:58)
[2016-09-10] MEDS: ASPIRIN CHEW 81 MG TABLET PO SCH (08:58)
[2016-09-10] MEDS: ATORVASTATIN 40 MG TABLET PO SCH (08:59)
[2016-09-10] MEDS: ATENOLOL 25 MG TABLET PO SCH (08:59)
[2016-09-10] MEDS: VALSARTAN 160 MG TABLET PO SCH ×2 (08:59→20:37)
[2016-09-10] MEDS: FUROSEMIDE 20 MG TABLET PO SCH (08:59)
--- NOTE | 2016-09-10 14:27 | Hospitalist Progress Note ---
Assessment and Plan (1) Acute ST elevation myocardial infarction (STEMI) of inferior wall Status: Acute Assessment and plan: Complicated by ventricular fibrillation/ventricular tachycardia s/p ballon angioplasty of right coronary artery Current Visit: Yes (2) Subdural hematoma Status: Chronic Assessment and plan: Increased in size with cardiac issues CT head today without acute change, is noted to have edema vs gliosis wiht recs for f/u ct or mri Will order MRI Current Visit: Yes (3) Urinary tract infection Status: Acute Assessment and plan: Urine culture with ESBL proteus, discontinue rocephin, start ertapenem Patient does have dumont catheter, but afraid to remove it now with the amount of scrotal and penile edema that he has Current Visit: Yes (4) Anasarca Status: Acute Assessment and plan: Most notably in scrotal area Given extra dose of lasix yesterday Current Visit: Yes Hospitalist: Subjective Interval history: No acute events overnight. Daughter is in room, she reports that patient has been alert and talking to her. Exam - Constitutional Vitals: Period Temp Pulse Resp BP Sys/Mcfarlane Pulse Ox Last 24 Hr 97.6 F-99.0 F 70-98 17-20 102-122/61-71 92-100 General appearance: over weight - Head Head exam: Present: normocephalic, atraumatic - Eye Eye exam: Present: EOMI Pupils: Present: ALLEN - ENT ENT exam: Present: normal exam - Neck Neck exam: Present: normal inspection - Respiratory Respiratory exam: Present: clear to auscultation bilaterally. Absent: rhonchi, wheezes - Cardiovascular Cardiovascular exam: Present: regular rate and rhythm - GI/Abdominal GI/Abdominal exam: Present: normal bowel sounds, soft. Absent: tenderness - Extremities Exam Extremities exam: Present: edema - Neurological Exam Neurological exam: Present: alert - Psychiatric Psychiatric exam: Present: normal affect, normal mood - Skin Skin exam: Present: warm, intact Results - Labs CBC & BMP: 09/10/16 06:07 09/10/16 06:07 Specialty Discharge - Follow Up or Referrals Follow up with: Dale Chawla MD [Physician] - 1 Month
[2016-09-10] MEDS: ERTAPENEM 1,000 MG in SODIUM CHLORIDE 0.9% 100 ML IV SCH (16:07)
[2016-09-10] MEDS: TAMSULOSIN 0.4 MG CAPSULE PO SCH (20:37)
[2016-09-10] MEDS: CLORAZEPATE 3.75 MG TABLET PO SCH (20:37)
--- NOTE | 2016-09-10 22:07 | EKG Report ---
Stationary ECG Study [facility] Test Date: 09/10/2016 10:08:10 PM Pat Name: SYLVIA KAUR Department: Room: 231 Gender: M Operations Asst: JESSI : 1935 Requested by: Puma Carrillo Order Number: [id number] Reading MD: JESUS COPELAND Intervals [place] Rate: 100 P: 55 FL: 137 QRS: 10 QRSD: 89 T: -36 QT: 353 QTc: 410 Interpretive Statements SINUS TACHYCARDIA WITH FREQUENT VENTRICULAR PREMATURE COMPLEXES WITH FREQUENT SUPRAVENTRICULAR PREMATURE COMPLEXES NONSPECIFIC T-WAVE ABNORMALITY Electronically Signed On 09-12-16 07:40:32 CDT by JESUS COPELAND [email or web address]
[2016-09-11] MEDS: DEXT 5% LACT RING KCL 20 MEQ 20 MEQ/1,000 ML BAG IV SCH ×3 (01:00→23:54)
[2016-09-11 06:23] LABS: Calcium 7.4 MG/DL (8.5-10.1); Magnesium 1.7 MG/DL (1.8-2.4); Osmolality,Calculated 277.3 MOS/KG (273-304); Potassium 3.6 MMOL/L (3.5-5.1)
[2016-09-11] MEDS: FUROSEMIDE 20 MG TABLET PO SCH (09:25)
[2016-09-11] MEDS: ATENOLOL 25 MG TABLET PO SCH (09:25)
[2016-09-11] MEDS: levETIRAcetam 500 MG TABLET PO SCH ×2 (09:25→21:07)
[2016-09-11] MEDS: ATORVASTATIN 40 MG TABLET PO SCH (09:25)
[2016-09-11] MEDS: ASPIRIN CHEW 81 MG TABLET PO SCH (09:25)
[2016-09-11] MEDS: VALSARTAN 160 MG TABLET PO SCH ×2 (09:25→21:07)
--- NOTE | 2016-09-11 15:11 | Hospitalist Progress Note ---
Assessment and Plan (1) Acute ST elevation myocardial infarction (STEMI) of inferior wall Status: Acute Assessment and plan: Complicated by ventricular fibrillation/ventricular tachycardia s/p ballon angioplasty of right coronary artery Current Visit: Yes (2) Subdural hematoma Status: Chronic Assessment and plan: Increased in size with cardiac issues CT head 09/09/16 without acute change, is noted to have edema vs gliosis wiht recs for f/u ct or mri MRI pending Current Visit: Yes (3) Urinary tract infection Status: Acute Assessment and plan: Urine culture with ESBL proteus, discontinue rocephin, start ertapenem Patient does have dumont catheter, but afraid to remove it now with the amount of scrotal and penile edema that he has Current Visit: Yes (4) Anasarca Status: Acute Assessment and plan: Most notably in scrotal area Given extra doses of lasix as blood pressure tolerates Current Visit: Yes Hospitalist: Subjective Interval history: No acute events overnight. Patient's daughter reports that his appetite has decreased some today. Exam - Constitutional Vitals: Period Temp Pulse Resp BP Sys/Mcfarlane Pulse Ox Last 24 Hr 97.0 F-98.5 F 56-98 18-20 92-146/47-86 91-97 General appearance: over weight - Head Head exam: Present: normocephalic, atraumatic - Eye Eye exam: Present: EOMI Pupils: Present: ALLEN - ENT ENT exam: Present: normal exam - Neck Neck exam: Present: normal inspection - Respiratory Respiratory exam: Present: clear to auscultation bilaterally. Absent: rhonchi, wheezes - Cardiovascular Cardiovascular exam: Present: regular rate and rhythm - GI/Abdominal GI/Abdominal exam: Present: normal bowel sounds, soft. Absent: tenderness, rebound - Extremities Exam Extremities exam: Present: normal inspection - Back Exam Back exam: Present: normal inspection - Neurological Exam Neurological exam: Present: alert, oriented X3 - Psychiatric Psychiatric exam: Present: normal affect, normal mood - Skin Skin exam: Present: warm, intact Results - Labs CBC & BMP: 09/10/16 06:07 09/11/16 05:17 Specialty Discharge - Follow Up or Referrals Follow up with: Dale Chawla MD [Physician] - 1 Month
[2016-09-11] MEDS: ERTAPENEM 1,000 MG in SODIUM CHLORIDE 0.9% 100 ML IV SCH (15:16)
--- NOTE | 2016-09-11 16:13 | Physician Query Form ---
CLICK EDIT DOCUMENT TO SELECT QUERY ANSWER --> OK --> SIGN Daria Villarreal RN Clinical [employer] W) [phone] (f) [phone] [email or web address] PROVIDERS: Make your selection(s) from the choices in EACH section by typing an "x" and enter comments in the comment section. Please use your independent medical judgment in providing your response. This request does not imply that any particular answer is desired or expected. CLINICAL INDICATORS: (Providers should not edit this section) Based on documentation of "UTI" and "Patient does have dumont catheter". Pt. treated with IV Rocephin. Based on the above, could you clarify the appropriate diagnosis, if significant , that supports the above abnormalities and additional evaluation, monitoring, and/or treatment rendered: (x ) UTI due to dumont catheter ( ) UTI not due to dumont catheter ( ) Other, please specify: ( ) Clinically unable to determine COMMENTS: PLEASE ALSO DOCUMENT RESPONSE IN PROGRESS NOTES AND/OR DISCHARGE SUMMARY Use of terms such as suspected, likely, or probable (associated with a specific diagnosis that is being evaluated, monitored, or treated as if it exists) are acceptable and can be restated in the discharge summary if not ruled out. [facility]
--- NOTE | 2016-09-11 16:42 | Magnetic Resonance Report ---
Referring physician: Cassie Velázquez MD Exam: MRI brain without contrast Date: September 11, 2016 Comparison: CT brain without contrast September 09, 2016 Reason: Questionable CT, abnormal CT, mental status changes, subdural hematomas The patient is an inpatient who was admitted on September 03, 2016. Technique: MRI of the brain was performed without the use of contrast. Obtained images include sagittal T1, axial diffusion-weighted, axial FLAIR, axial T2, coronal T2, axial gradient and axial T1 sequences. A 1.5 Chayo magnet was used. Findings: There are small extra-axial collections overlying both cerebral hemispheres, measuring up to 0.6 cm in thickness. They mainly demonstrate CSF signal, but there is minimal T1/T2 hyperintensity, measuring up to 0.4 cm in thickness (overlying the right parietal lobe on image 16, series 6). This likely represents remote subdural hematomas or hygromas with a minimal subacute component. There is mild to moderate generalized cerebral and cerebellar atrophy/volume loss. Small areas of T2/FLAIR hyperintensity are seen within the cerebral white matter bilaterally. This is nonspecific but likely represents mild to moderate chronic microvascular ischemic change. Less likely considerations include a demyelinating process, vasculitis, viral process or Lyme disease. There are small remote infarctions at the cerebellum bilaterally and a small remote infarction at the right occipital lobe. A remote lacunar infarction is suspected within the right periventricular white matter, extending to the right basal ganglia. The ventricular system is mildly prominent, likely secondary to central atrophy/volume loss. However, normal pressure hydrocephalus would be difficult confirm or exclude. No midline shift is present. No acute infarction is identified. Major vascular flow voids are visualized. The orbits, sella and brainstem are unremarkable. The paranasal sinuses and mastoid air cells are clear. Impression: 1. There are again small extra-axial collections overlying cerebral both hemispheres. This is similar to the previous head CT performed on September 09, 2016. This is most consistent with small remote subdural hematomas or hygromas with a superimposed minimal subacute component. 2. Mild to moderate generalized cerebral atrophy/volume loss and probable chronic microvascular ischemic change. 3. 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 A remote lacunar infarction is also suspected within the right periventricular white matter, extending to the right basal ganglia. PROCEDURE INTERPRETED AT [facility] DEPARTMENT OF RADIOLOGY Final Report Signed by: Dr. Diana Pepper
[2016-09-11] MEDS: CLORAZEPATE 3.75 MG TABLET PO SCH (21:07)
[2016-09-11] MEDS: TAMSULOSIN 0.4 MG CAPSULE PO SCH (21:07)
[2016-09-12] MEDS: levETIRAcetam 500 MG TABLET PO SCH ×2 (09:13→21:19)
[2016-09-12] MEDS: VALSARTAN 160 MG TABLET PO SCH (09:13)
[2016-09-12] MEDS: ATORVASTATIN 40 MG TABLET PO SCH (09:13)
[2016-09-12] MEDS: ASPIRIN CHEW 81 MG TABLET PO SCH (09:13)
[2016-09-12] MEDS: ATENOLOL 25 MG TABLET PO SCH (09:13)
[2016-09-12] MEDS: FUROSEMIDE 20 MG TABLET PO SCH (09:13)
[2016-09-12] MEDS ORDERED: FUROSEMIDE 40 MG/4 ML VIAL IV ONE (15:42)
--- NOTE | 2016-09-12 16:00 | Hospitalist Progress Note ---
Assessment and Plan (1) Acute ST elevation myocardial infarction (STEMI) of inferior wall Status: Acute Assessment and plan: Complicated by ventricular fibrillation/ventricular tachycardia s/p ballon angioplasty of right coronary artery Current Visit: Yes (2) Subdural hematoma Status: Chronic Assessment and plan: Increased in size with cardiac issues CT head 09/09/16 without acute change, is noted to have edema vs gliosis wiht recs for f/u ct or mri MRI pending Current Visit: Yes (3) Urinary tract infection Status: Acute Assessment and plan: Urine culture with ESBL proteus, discontinue rocephin, start ertapenem Patient does have dumont catheter, but afraid to remove it now with the amount of scrotal and penile edema that he has Current Visit: Yes (4) Anasarca Status: Acute Assessment and plan: Most notably in scrotal area Given extra doses of lasix as blood pressure tolerates Current Visit: Yes Hospitalist: Subjective Interval history: No acute events overnight. Patient awake and alert this morning, initially did not want me to touch him but later on allowed me to examine him. Still with significant scrotal and penile swelling. Decreasing his valsartan in hopes of being able to give more lasix. Appetite also seems to be decreasing. Exam - Constitutional Vitals: Period Temp Pulse Resp BP Sys/Mcfarlane Pulse Ox Last 24 Hr 96.9 F-98.1 F 49-94 16-20 87-132/57-78 95-99 General appearance: over weight - Head Head exam: Present: normocephalic, atraumatic - Eye Eye exam: Present: EOMI Pupils: Present: ALLEN - ENT ENT exam: Present: normal exam - Neck Neck exam: Present: normal inspection - Respiratory Respiratory exam: Present: clear to auscultation bilaterally. Absent: wheezes - Cardiovascular Cardiovascular exam: Present: regular rate and rhythm - GI/Abdominal GI/Abdominal exam: Present: normal bowel sounds, soft. Absent: tenderness - Extremities Exam Extremities exam: Present: normal inspection - Back Exam Back exam: Present: normal inspection - Neurological Exam Neurological exam: Present: alert - Psychiatric Psychiatric exam: Present: agitated - Skin Skin exam: Present: warm, intact Results - Labs CBC & BMP: 09/10/16 06:07 09/11/16 05:17 Specialty Discharge - Follow Up or Referrals Follow up with: Dale Chawla MD [Physician] - 1 Month
[2016-09-12] MEDS: ERTAPENEM 1,000 MG in SODIUM CHLORIDE 0.9% 100 ML IV SCH (16:07)
[2016-09-12] MEDS: DESITIN 4OZ/NYSTATIN 15 GRAM MIXTURE PASTE TOP SCH (21:19)
[2016-09-12] MEDS: MIRTAZAPINE 15 MG TABLET PO SCH (21:19)
[2016-09-12] MEDS: CLORAZEPATE 3.75 MG TABLET PO SCH (21:19)
[2016-09-12] MEDS: TAMSULOSIN 0.4 MG CAPSULE PO SCH (21:19)
[2016-09-13] MEDS: DEXT 5% LACT RING KCL 20 MEQ 20 MEQ/1,000 ML BAG IV SCH (01:04)
[2016-09-13 05:36] LABS: Basophils % 0.2 % (0.0-0.8); Eosinophils # 0.1 10*3/uL (0.0-0.87); Eosinophils % 1.5 % (0.00-10.9); Hematocrit 26.7 VOL% (42.0-52.0); Hemoglobin 8.8 GM/DL (14.0-18.0); Immature Granulocytes % 0.7 %; Immature Granulocytes Absolute 0.06 #; Lymphocytes # 1.9 10*3/uL (1.4-4.0); Lymphocytes % 21.1 % (21.2-54.2); Mean Corpuscular Hemoglobin 30 PG (27-34); Mean Corpuscular Volume 91.1 FL (87-102); Mean Platelet Volume 11.1 FL (9.6-12.0); Monocytes # 0.7 10*3/uL (0.11-0.8); Monocytes % 8.2 % (1.7-12.7); Neutrophils % 68.3 % (38.7-73.9); Platelet Count 194 T/CUMM (130-400); Red Blood Count 2.93 MC/CUMM (3.8-5.5); Red Cell Distribution Width 13.1 % (9.3-17.3); White Blood Count 8.8 T/CUMM (4-12)
[2016-09-13 06:03] LABS: Calcium 7.4 MG/DL (8.5-10.1); Magnesium 1.8 MG/DL (1.8-2.4); Potassium 3.7 MMOL/L (3.5-5.1)
[2016-09-13] MEDS: ATORVASTATIN 40 MG TABLET PO SCH (09:05)
[2016-09-13] MEDS: DESITIN 4OZ/NYSTATIN 15 GRAM MIXTURE PASTE TOP SCH ×2 (09:05→20:26)
[2016-09-13] MEDS: ASPIRIN CHEW 81 MG TABLET PO SCH (09:05)
[2016-09-13] MEDS: FUROSEMIDE 20 MG TABLET PO SCH (09:05)
[2016-09-13] MEDS: levETIRAcetam 500 MG TABLET PO SCH ×2 (09:05→20:26)
[2016-09-13] MEDS: ATENOLOL 25 MG TABLET PO SCH (09:05)
[2016-09-13] MEDS: VALSARTAN 80 MG TABLET PO SCH (09:05)
[2016-09-13] MEDS ORDERED: FUROSEMIDE 40 MG/4 ML VIAL IV ONE (09:56)
--- NOTE | 2016-09-13 13:31 | Hospitalist Progress Note ---
Assessment and Plan (1) Acute ST elevation myocardial infarction (STEMI) of inferior wall Status: Acute Assessment and plan: Complicated by ventricular fibrillation/ventricular tachycardia s/p ballon angioplasty of right coronary artery Current Visit: Yes (2) Subdural hematoma Status: Chronic Assessment and plan: Increased in size with cardiac issues CT head 09/09/16 without acute change MRI without acute process Neurology signed off Current Visit: Yes (3) Urinary tract infection Status: Acute Assessment and plan: Urine culture with ESBL proteus, discontinue rocephin, continue ertapenem Patient does have dumont catheter, but afraid to remove it now with the amount of scrotal and penile edema that he has Current Visit: Yes (4) Anasarca Status: Acute Assessment and plan: Most notably in scrotal area Given extra doses of lasix as blood pressure tolerates, lasix IV 40 mg today Decreased valsartan Appetite ok, discontinue IV fluids Current Visit: Yes Hospitalist: Subjective Interval history: No acute events overnight. Daughter is worried about patient developing thrush, he would not open his mouth for me. Exam - Constitutional Vitals: Period Temp Pulse Resp BP Sys/Mcfarlane Pulse Ox Last 24 Hr 96.7 F-99.1 F 52-101 16-20 92-131/41-93 94-100 General appearance: over weight - Head Head exam: Present: normocephalic, atraumatic - Eye Eye exam: Present: EOMI Pupils: Present: ALLEN - ENT ENT exam: Present: normal external ear exam - Neck Neck exam: Present: normal inspection - Respiratory Respiratory exam: Present: clear to auscultation bilaterally. Absent: wheezes - Cardiovascular Cardiovascular exam: Present: regular rate and rhythm - GI/Abdominal GI/Abdominal exam: Present: normal bowel sounds, soft. Absent: tenderness, rebound - Extremities Exam Extremities exam: Present: normal inspection - Back Exam Back exam: Present: normal inspection - Neurological Exam Neurological exam: Present: alert - Psychiatric Psychiatric exam: Present: agitated - Skin Skin exam: Present: warm, intact Results - Labs CBC & BMP: 09/13/16 04:10 09/13/16 04:10 Specialty Discharge - Follow Up or Referrals Follow up with: Dale Chawla MD [Physician] - 1 Month
[2016-09-13] MEDS: ERTAPENEM 1,000 MG in SODIUM CHLORIDE 0.9% 100 ML IV SCH (15:14)
[2016-09-13] MEDS: MIRTAZAPINE 15 MG TABLET PO SCH (20:26)
[2016-09-13] MEDS: CLORAZEPATE 3.75 MG TABLET PO SCH (20:26)
[2016-09-13] MEDS: TAMSULOSIN 0.4 MG CAPSULE PO SCH (20:26)
[2016-09-14 06:57] LABS: Calcium 7.9 MG/DL (8.5-10.1); Magnesium 1.8 MG/DL (1.8-2.4); Osmolality,Calculated 278.1 MOS/KG (273-304); Potassium 3.7 MMOL/L (3.5-5.1)
[2016-09-14] MEDS: ASPIRIN CHEW 81 MG TABLET PO SCH (08:53)
[2016-09-14] MEDS: ATENOLOL 25 MG TABLET PO SCH (08:54)
[2016-09-14] MEDS: FUROSEMIDE 20 MG TABLET PO SCH (08:54)
[2016-09-14] MEDS: levETIRAcetam 500 MG TABLET PO SCH ×2 (08:54→21:00)
[2016-09-14] MEDS: VALSARTAN 80 MG TABLET PO SCH (08:54)
[2016-09-14] MEDS: ATORVASTATIN 40 MG TABLET PO SCH (08:54)
[2016-09-14] MEDS: DESITIN 4OZ/NYSTATIN 15 GRAM MIXTURE PASTE TOP SCH ×2 (08:54→21:00)
--- NOTE | 2016-09-14 10:34 | Hospitalist Progress Note ---
Assessment and Plan (1) Acute ST elevation myocardial infarction (STEMI) of inferior wall Status: Acute Assessment and plan: Remains hemodynamically stable. Continue with current management with blood pressure control, high intensity statin, ASA. Low dose diuretic therapy with furosemide. No acute issues noted. Current Visit: Yes (2) Subdural hematoma Status: Chronic Assessment and plan: Stable. No acute changes noted on last CT head done on 09/09/2016. MRI without acute process. Neurology signed off. Current Visit: Yes (3) Coronary artery disease Status: Acute Assessment and plan: As above per #1 Current Visit: Yes (4) Anasarca Status: Acute Assessment and plan: Most notably in the scrotal area. Lasix is being given daily and prn as blood pressure tolerates. Current Visit: Yes (5) Urinary tract infection Status: Acute Assessment and plan: Proteus mirabilis isolated on urine culture. Patient is currently on day 5 of 7 of ertapenem. Current Visit: Yes Hospitalist: Subjective Interval history: No acute issues overnight. Patient did receive specialty bed and is continuing with every 2 hour bed turning. Patient was without complaint this morning and in no acute distress. We continue with treatment of Proteus mirabilis UTI currently on Ertapenam day 5 of 7. Exam - Constitutional Vitals: Period Temp Pulse Resp BP Sys/Mcfarlane Pulse Ox Last 24 Hr 96.7 F-97.7 F 56-95 16-20 97-153/61-93 90-98 Exam: General appearance: NAD- Head Head exam: Present: normocephalic, atraumatic - Eye Eye exam: Present: EOMI - Respiratory Respiratory exam: Present: clear to auscultation bilaterally. Absent: wheezes - Cardiovascular Cardiovascular exam: Present: regular rate and rhythm - GI/Abdominal GI/Abdominal exam: Present: normal bowel sounds, soft. Absent: tenderness, rebound - Extremities Exam Extremities exam: Present: normal inspection - Neurological Exam Neurological exam: Present: alert - Psychiatric Psychiatric exam: Present: calm and cooperative - Skin Skin exam: Present: warm, intact Results - Labs CBC & BMP: 09/13/16 04:10 09/14/16 05:31 Specialty Discharge - Follow Up or Referrals Follow up with: Dale Chawla MD [Physician] - 1 Month
[2016-09-14] MEDS: ERTAPENEM 1,000 MG in SODIUM CHLORIDE 0.9% 100 ML IV SCH (15:06)
[2016-09-14] MEDS: CLORAZEPATE 3.75 MG TABLET PO SCH (21:00)
[2016-09-14] MEDS: MIRTAZAPINE 15 MG TABLET PO SCH (21:00)
[2016-09-14] MEDS: TAMSULOSIN 0.4 MG CAPSULE PO SCH (21:00)
[2016-09-15] MEDS: levETIRAcetam 500 MG TABLET PO SCH (09:00)
[2016-09-15 09:40] LABS: Basophils % 0.5 % (0.0-0.8); Eosinophils # 0.1 10*3/uL (0.0-0.87); Eosinophils % 1.4 % (0.00-10.9); Immature Granulocytes % 0.5 %; Immature Granulocytes Absolute 0.03 #; Lymphocytes # 1.4 10*3/uL (1.4-4.0); Lymphocytes % 21.6 % (21.2-54.2); Mean Corpuscular HGB Conc 33.3 GM/DL (32-36); Mean Corpuscular Hemoglobin 30 PG (27-34); Mean Corpuscular Volume 90.3 FL (87-102); Mean Platelet Volume 10.6 FL (9.6-12.0); Monocytes # 0.5 10*3/uL (0.11-0.8); Monocytes % 8.3 % (1.7-12.7); Neutrophils # 4.2 10*3/uL (1.4-7.4); Neutrophils % 67.7 % (38.7-73.9); Platelet Count 201 T/CUMM (130-400); Red Blood Count 2.99 MC/CUMM (3.8-5.5); Red Cell Distribution Width 13.1 % (9.3-17.3); White Blood Count 6.3 T/CUMM (4-12)
[2016-09-15] MEDS: VALSARTAN 80 MG TABLET PO SCH (09:52)
[2016-09-15] MEDS: ASPIRIN CHEW 81 MG TABLET PO SCH (09:52)
[2016-09-15] MEDS: ATORVASTATIN 40 MG TABLET PO SCH (09:53)
[2016-09-15] MEDS: ATENOLOL 25 MG TABLET PO SCH (09:53)
[2016-09-15] MEDS: FUROSEMIDE 20 MG TABLET PO SCH (09:53)
[2016-09-15] MEDS: DESITIN 4OZ/NYSTATIN 15 GRAM MIXTURE PASTE TOP SCH ×2 (09:54→20:46)
--- NOTE | 2016-09-15 11:24 | Hospitalist Progress Note ---
Assessment and Plan (1) Acute ST elevation myocardial infarction (STEMI) of inferior wall Status: Resolved Assessment and plan: Remains hemodynamically stable. Continue with current management with blood pressure control, high intensity statin, ASA. Low dose diuretic therapy with furosemide. No acute issues noted. No changes to the plan of care. Current Visit: Yes (2) Subdural hematoma Status: Chronic Assessment and plan: Stable. No acute changes noted on last CT head done on 09/09/2016. MRI without acute process. Neurology has signed off. Current Visit: Yes (3) Coronary artery disease Status: Acute Assessment and plan: As above per #1 Current Visit: Yes (4) Anasarca Status: Acute Assessment and plan: Most notably in the scrotal area but additionally in the lower extremities bilaterally. Lasix is being given daily as long as blood pressure allows. Current Visit: Yes (5) Urinary tract infection Status: Acute Assessment and plan: Proteus mirabilis isolated on urine culture. Patient is currently on day 6 of 7 of ertapenem. Current Visit: Yes Hospitalist: Subjective Interval history: Patient seen and evaluated this morning with her daughter at bedside. No acute events noted overnight. Discussed at length with the patient's daughter expectations and plans for discharge. Noted that the patient has been stable from a medical standpoint for several days. Further discussed that scrotal swelling and lower extremity edema would resolve over time. He is currently on daily Lasix at a dosage that would not exacerbate symptomatic hypotension. The patient's daughter discussed that they have everything ready at home for him except for a lift. She would like to have that in place prior to discharge. We will discuss this with case management and will plan for discharge home in the next 1-2 days. He remains hemodynamically and clinically stable. Exam - Constitutional Vitals: Period Temp Pulse Resp BP Sys/Mcfarlane Pulse Ox Last 24 Hr 96.8 F-98.2 F 51-125 16-20 97-129/50-73 85-99 Exam: General appearance: NAD - Head Head exam: Present: normocephalic, atraumatic - Eye Eye exam: Present: EOMI - Respiratory Respiratory exam: Present: clear to auscultation bilaterally. Absent: wheezes - Cardiovascular Cardiovascular exam: Present: regular rate and rhythm - GI/Abdominal GI/Abdominal exam: Present: normal bowel sounds, soft. Scrotal swelling seems improved. Absent: tenderness, rebound - Extremities Exam Extremities exam: Present: bilateral pitting edema - Neurological Exam Neurological exam: Present: alert - Psychiatric Psychiatric exam: Present: calm and cooperative - Skin Skin exam: Present: warm, intact Results - Labs CBC & BMP: 09/15/16 09:27 09/14/16 05:31 Specialty Discharge - Follow Up or Referrals Follow up with: Dale Chawla MD [Physician] - 1 Month
[2016-09-15] MEDS: ERTAPENEM 1,000 MG in SODIUM CHLORIDE 0.9% 100 ML IV SCH (15:13)
[2016-09-15] MEDS: TAMSULOSIN 0.4 MG CAPSULE PO SCH (20:46)
[2016-09-15] MEDS: CLORAZEPATE 3.75 MG TABLET PO SCH (20:46)
[2016-09-15] MEDS: MIRTAZAPINE 15 MG TABLET PO SCH (20:46)
[2016-09-16] MEDS: DESITIN 4OZ/NYSTATIN 15 GRAM MIXTURE PASTE TOP SCH ×2 (08:30→20:22)
[2016-09-16] MEDS: ATORVASTATIN 40 MG TABLET PO SCH (09:54)
[2016-09-16] MEDS: VALSARTAN 80 MG TABLET PO SCH (09:54)
[2016-09-16] MEDS: levETIRAcetam 500 MG TABLET PO SCH (09:55)
[2016-09-16] MEDS: ASPIRIN CHEW 81 MG TABLET PO SCH (09:55)
[2016-09-16] MEDS: FUROSEMIDE 20 MG TABLET PO SCH (09:56)
[2016-09-16] MEDS: ATENOLOL 25 MG TABLET PO SCH (09:56)
--- NOTE | 2016-09-16 13:50 | Hospitalist Progress Note ---
Assessment and Plan (1) Acute ST elevation myocardial infarction (STEMI) of inferior wall Status: Resolved Assessment and plan: Remains hemodynamically stable. Continue with current management with blood pressure control, high intensity statin, ASA. Low dose diuretic therapy with furosemide. No acute issues noted. No changes to the plan of care. Will notify case management of discharge plans to home but family is requesting a lift prior to d/c. Current Visit: Yes (2) Subdural hematoma Status: Chronic Assessment and plan: Stable. Current Visit: Yes (3) Coronary artery disease Status: Chronic Assessment and plan: As above per #1 Current Visit: Yes (4) Anasarca Status: Acute Assessment and plan: Most notably in the scrotal area (improving) but additionally in the lower extremities bilaterally. Continue Lasix 20mg po daily as long as blood pressure allows. Current Visit: Yes (5) Urinary tract infection Status: Acute Assessment and plan: Proteus mirabilis isolated on urine culture. Patient is currently on day 7 of 7 of ertapenem. Course completed. Will d/c abx. Current Visit: Yes Hospitalist: Subjective Interval history: No acute changes overnight. Planning for discharge home early next week. Exam - Constitutional Vitals: Period Temp Pulse Resp BP Sys/Mcfarlane Pulse Ox Last 24 Hr 97.0 F-98.1 F 74-103 16-20 103-139/54-81 79-99 Exam: General appearance: NAD - Head Head exam: Present: normocephalic, atraumatic - Eye Eye exam: Present: EOMI - Respiratory Respiratory exam: Present: clear to auscultation bilaterally. Absent: wheezes - Cardiovascular Cardiovascular exam: Present: regular rate and rhythm - GI/Abdominal GI/Abdominal exam: Present: normal bowel sounds, soft. Scrotal swelling improving - Extremities Exam Extremities exam: Present: bilateral pitting edema about the same. Results - Labs CBC & BMP: 09/15/16 09:27 09/14/16 05:31 Specialty Discharge - Follow Up or Referrals Follow up with: Dale Chawla MD [Physician] - 1 Month
[2016-09-16] MEDS: MIRTAZAPINE 15 MG TABLET PO SCH (20:22)
[2016-09-16] MEDS: TAMSULOSIN 0.4 MG CAPSULE PO SCH (20:22)
[2016-09-17] MEDS: ATORVASTATIN 40 MG TABLET PO SCH (09:56)
[2016-09-17] MEDS: levETIRAcetam 500 MG TABLET PO SCH (09:56)
[2016-09-17] MEDS: DESITIN 4OZ/NYSTATIN 15 GRAM MIXTURE PASTE TOP SCH ×2 (09:56→20:22)
[2016-09-17] MEDS: FUROSEMIDE 20 MG TABLET PO SCH (09:56)
[2016-09-17] MEDS: ATENOLOL 25 MG TABLET PO SCH (09:56)
[2016-09-17] MEDS: ASPIRIN CHEW 81 MG TABLET PO SCH (09:56)
[2016-09-17] MEDS: VALSARTAN 80 MG TABLET PO SCH (09:56)
--- NOTE | 2016-09-17 10:55 | EKG Report ---
Stationary ECG Study [facility] Test Date: 09/17/2016 10:55:18 AM Pat Name: SYLVIA KAUR Department: Room: 231 Gender: M Legal File Clerk: SAVI : 1935 Requested by: Ranjana Vásquez Order Number: [id number] Reading MD: JASWINDER LÓPEZ Intervals [place] Rate: 104 P: 79 AL: 175 QRS: 58 QRSD: 82 T: 14 QT: 339 QTc: 400 Interpretive Statements SINUS TACHYCARDIA WITH FREQUENT ATRIAL AND VENTRICULAR PREMATURE COMPLEXES NONSPECIFIC T-WAVE ABNORMALITY Electronically Signed On 09-19-16 15:27:21 CDT by JASWINDER LÓPEZ [email or web address]
[2016-09-17 11:37] LABS: Basophils % 0.5 % (0.0-0.8); Eosinophils # 0.1 10*3/uL (0.0-0.87); Eosinophils % 1.7 % (0.00-10.9); Hematocrit 26.6 VOL% (42.0-52.0); Hemoglobin 8.9 GM/DL (14.0-18.0); Immature Granulocytes % 0.3 %; Immature Granulocytes Absolute 0.02 #; Lymphocytes # 1.3 10*3/uL (1.4-4.0); Lymphocytes % 22.2 % (21.2-54.2); Mean Corpuscular HGB Conc 33.5 GM/DL (32-36); Mean Corpuscular Hemoglobin 31 PG (27-34); Mean Corpuscular Volume 92.4 FL (87-102); Monocytes # 0.4 10*3/uL (0.11-0.8); Neutrophils % 68.3 % (38.7-73.9); Platelet Count 202 T/CUMM (130-400); Red Blood Count 2.88 MC/CUMM (3.8-5.5); Red Cell Distribution Width 13.3 % (9.3-17.3); White Blood Count 5.9 T/CUMM (4-12)
[2016-09-17 12:12] LABS: Calcium 7.9 MG/DL (8.5-10.1); Osmolality,Calculated 285.8 MOS/KG (273-304); Potassium 3.4 MMOL/L (3.5-5.1)
[2016-09-17] MEDS ORDERED: POTASSIUM CHLORIDE RIDER 20 MEQ in PREMIX 1 EACH IV PRN (12:54)
[2016-09-17] MEDS ORDERED: POTASSIUM CHLORIDE RIDER 10 MEQ in PREMIX 1 EACH IV PRN (12:58)
--- NOTE | 2016-09-17 15:56 | Hospitalist Progress Note ---
Assessment and Plan - Time spent with patient Time spent with patient: Greater than 30 minutes (1) Acute ST elevation myocardial infarction (STEMI) of inferior wall Status: Resolved Assessment and plan: Minor episodes of ectopy noted on telemetry monitoring. Patient remained hemodynamically and clinically stable. EKG consistent with sinus tach with occasional PVCs. Patient noted to be mildly hypokalemic. Will supplement with IV potassium. Otherwise continue with current management with blood pressure control, high intensity statin, ASA. Continue low dose diuretic therapy with furosemide for now. Case management aware of discharge plans to have a lifts into the home prior to discharge. Current Visit: Yes (2) Subdural hematoma Status: Chronic Assessment and plan: Stable. Current Visit: Yes (3) Coronary artery disease Status: Chronic Assessment and plan: As above per #1 Current Visit: Yes (4) Anasarca Status: Acute Assessment and plan: Most notably in the scrotal area (improving) but additionally in the lower extremities bilaterally. Continue Lasix 20mg po daily as long as blood pressure allows. Current Visit: Yes (5) Urinary tract infection Status: Resolved Assessment and plan: Proteus mirabilis isolated on urine culture. Patient is currently on day 7 of 7 of ertapenem. Course completed. Will d/c abx. Current Visit: Yes Hospitalist: Subjective Interval history: Patient was seen and evaluated at the bedside this morning. No acute events noted overnight however I received several calls from nursing this morning stating that there were some abnormalities on telemetry monitoring. Initially there was thoughts of new onset A. fib however with EKG obtained it was noted to be sinus tach with occasional PVCs. CBC was largely unremarkable other than very mild drop in his hematocrit from his baseline. BMP was significant for a mild hypokalemia which I will replace IV. He is receiving low-dose furosemide for scrotal and lower extremity edema. His blood pressures were initially captured is being low however repeat manually revealed no change in his blood pressure readings. We will continue to monitor after replacement of potassium. Plans are for discharge home once a lift has been received. Case management is aware. Exam - Constitutional Vitals: Period Temp Pulse Resp BP Sys/Mcfarlane Pulse Ox Last 24 Hr 96.8 F-97.9 F 55-98 18-20 86-118/52-69 92-99 Exam: General appearance: NAD Head exam: Present: normocephalic, atraumatic Eye exam: Present: EOMI Respiratory exam: Present: clear to auscultation bilaterally. Absent: wheezes Cardiovascular exam: Present: regular rate and rhythm GI/Abdominal exam: Present: normal bowel sounds, soft. Scrotal swelling improving. Extremities exam: Present: bilateral pitting edema unchanged. Results - Labs CBC & BMP: 09/17/16 11:26 09/17/16 11:26 Specialty Discharge - Follow Up or Referrals Follow up with: Dale Chawla MD [Physician] - 1 Month
[2016-09-17] MEDS: TAMSULOSIN 0.4 MG CAPSULE PO SCH (20:21)
[2016-09-17] MEDS: MIRTAZAPINE 15 MG TABLET PO SCH (20:21)
[2016-09-18] MEDS: ATENOLOL 25 MG TABLET PO SCH (09:19)
[2016-09-18] MEDS: FUROSEMIDE 20 MG TABLET PO SCH (09:19)
[2016-09-18] MEDS: ASPIRIN CHEW 81 MG TABLET PO SCH (09:19)
[2016-09-18] MEDS: ATORVASTATIN 40 MG TABLET PO SCH (09:20)
[2016-09-18] MEDS: DESITIN 4OZ/NYSTATIN 15 GRAM MIXTURE PASTE TOP SCH ×2 (09:20→21:20)
[2016-09-18] MEDS: VALSARTAN 80 MG TABLET PO SCH (09:20)
[2016-09-18] MEDS: levETIRAcetam 500 MG TABLET PO SCH (09:20)
--- NOTE | 2016-09-18 14:15 | Hospitalist Progress Note ---
Exam - Constitutional Vitals: Period Temp Pulse Resp BP Sys/Mcfarlane Pulse Ox Last 24 Hr 96.9 F-98.3 F 54-108 16-20 93-109/41-71 94-100 Exam: frail elderly chronically ill appearing man, weak sleepy but arousable in NAD RRR no M CTAB anteriorly, diminished at the bases Soft, NT, ND, +BS Warm no c/c. +1 pitting LE edema and severe scrotal and penile edema Results - Labs CBC & BMP: 09/17/16 11:26 09/17/16 11:26 - Impressions (1) Acute ST elevation myocardial infarction (STEMI) of inferior wall Status: Resolved Assessment and plan: - Complicated by ventricular fibrillation/ventricular tachycardia - s/p ballon angioplasty of right coronary artery - EKG consistent with sinus tach with occasional PVCs. - blood pressure control: on Atenolol, Valsartan; high intensity statin. Low dose ASA Current Visit: Yes (2) Subdural hematoma Status: Chronic Assessment and plan: Stable. Current Visit: Yes - Increased in size with cardiac issues - CT head 09/09/16 without acute change - MRI without acute process - Neurology signed off (3) Coronary artery disease Status: Chronic Assessment and plan: As above per #1 Current Visit: Yes (4) Hypokalemia - replace. Check Mg and Phos and replace as needed (5) Anasarca suspect due to protein calorie malnutrition and possible acute CHF (given cardiac history) possibly systolic exacerbation Status: Acute Assessment and plan: Most notably in the scrotal area (improving) but additionally in the lower extremities bilaterally. - Continue Lasix 20mg but change to IV BID as long as blood pressure allows. - add Albumin 25% 25g IV q8h x 3 doses - Elevate scrotum - Consult urology for further recommendations - check ECHO - check RFP in am - Check CXR and BNP Current Visit: Yes (6) Urinary tract infection/ acute cystitis Status: Resolved Assessment and plan: ESBL Proteus mirabilis isolated on urine culture. s/p 7 days of Invanz. Patient does have dumont catheter, but afraid to remove it now with the amount of scrotal and penile edema that he has Current Visit: Yes (7) Lethargy/ Debility - Hold Remeron. If no improvement, recheck CT head. - PT/OT consulted (8) Constipation - resume home dose of Miralax and offer Dulcolax suppository Case management aware of discharge plans to have a lifts into the home prior to discharge. DVT prophylaxis - avoid blood thinners due to expansion of SDH. SCDs for now D/W nurse, daughter and pt. All questions answered. 44 minutes spent with this patient. Specialty Discharge - Follow Up or Referrals Follow up with: Dale Chawla MD [Physician] - 1 Month
[2016-09-18] MEDS ORDERED: BISACODYL 10 MG SUPP RECTAL ONE (14:26)
[2016-09-18] MEDS ORDERED: FUROSEMIDE 20 MG/2 ML VIAL IV SCH (15:00)
[2016-09-18] MEDS ORDERED: POTASSIUM CHLORIDE 20 MEQ TABLET PO ONE (15:00)
[2016-09-18] MEDS: ALBUMIN 25% 25 GM in PREMIX 1 EACH IV SCH (15:15)
[2016-09-18 16:52] LABS: Apearance,Urine CLEAR (Clear); Bilirubin,Urine Negative (Negative); Blood, Urine Small mg/dL (Negative); Glucose,Urine (UA) Negative (Negative); Hyaline Casts,Urine 7 /LPF (0-3); Ketones,Urine Negative (Negative); Mucus,Urine Occasional /LPF (Occasional); Nitrite,Urine Negative (Negative); Protein,Urine Negative; RBC,Urine 3 /HPF (0-4); Urine Color Colorless (Yellow); Urine Specific Gravity 1.004 (1.001-1.035); Urine Urobilinogen < 2.0 EU/DL (0.2-1.0); WBC,Urine 2 /HPF (0-6)
--- NOTE | 2016-09-18 17:12 | XRay Report ---
XR chest 1V portable Indication: Shortness of breath. Decreased oxygen saturation. Chest one view: Since 09/01/2016, patient has been extubated. Right subclavian central line is now present. No pneumothorax shown. Borderline cardiomegaly and tortuous thoracic aorta are stable. Increasing hazy obscuration of both lung bases noted. Impression: Extubated. Worsening bibasilar atelectasis or pneumonia. Cannot exclude small bilateral pleural effusions. PROCEDURE INTERPRETED AT [facility] DEPARTMENT OF RADIOLOGY Final Report Signed by: Marc White M.D.
--- NOTE | 2016-09-18 17:50 | Urology Consultation ---
Assessment and Plan - Time spent with patient Time spent with patient: Less than 30 minutes (1) Scrotal edema Status: Acute Assessment and plan: I have instructed the nursing service to elevate the genitalia with towels while he is lying in the bed. This will not completely go away until his generalized edema improved. I will see him back as necessary. Current Visit: Yes (2) Anasarca Status: Acute Current Visit: Yes History of Present Illness - Data of Consult Patient: new to practice Consult date: 09/18/16 Requesting Physician: Marbella Ling - Consult Narrative Reason for consult: Scrotal edema History of present illness: Mr. Espinal is a 81 year old male who has multiple medical problems. 1 of which is anasarca. He has 4+ pitting edema of his lower extremities. I was asked see the patient because he has scrotal edema. At present he is lying in the bed in a jackknife position. A lot of fluid will drain to the most dependent portion of the body which happens to be the pelvis and thus the scrotum. Patient has a Johns catheter in. At present, I recommend elevating his genitalia with a towel when he is lying in the bed. This will help with the real treatment would be to improve the anasarca. I will see him back as needed. CC: Marbella Ling MD - Home Medications and Allergies Home Medications: Home Medications Medication Instructions Recorded Confirmed Type Atorvastatin [Lipitor] 80 mg PO DAILY 05/31/16 09/04/16 History Furosemide Tab [Lasix Tab] 20 mg PO DAILY 05/31/16 09/04/16 History Tamsulosin [Flomax] 0.4 mg PO BEDTIME 05/31/16 09/04/16 History Valsartan 160 mg PO BEDTIME 05/31/16 09/04/16 History levETIRAcetam [Levetiracetam] 500 mg PO BID 05/31/16 09/04/16 History Megestrol Liquid [Megace Liquid] 10 ml PO BID 06/16/16 09/04/16 History Clorazepate [Tranxene] 3.75 mg PO DAILY PRN 09/01/16 09/04/16 History Aspirin Chew Tab 81 mg PO DAILY 09/04/16 09/04/16 History Atenolol 25 mg PO DAILY 09/04/16 09/04/16 History Ergocalciferol (Vitamin D2) 50,000 unit PO Q7DAY 09/04/16 09/04/16 History [Vitamin D2] Valsartan [Diovan] 160 mg PO BEDTIME 09/04/16 09/04/16 History Allergies/Adverse Reactions: Allergies Allergy/AdvReac Type Severity Reaction Status Date / Time No Known Allergies Allergy Unverified 06/16/16 12:28 12 point system: reviewed and no additional remarkable complaints except as stated - Genitourinary Genitourinary: Present: scrotal swelling Exam - Constitutional Vitals: Period Temp Pulse Resp BP Sys/Mcfarlane Pulse Ox Last 24 Hr 97.1 F-98.3 F 54-108 16-20 93-112/40-71 94-100 - Genitourinary Genitourinary: penile edema, other (Edematous scrotum) - Extremities Exam Extremities exam: Present: edema (4+ right greater than left) - Back Exam Back exam: Present: other (Sacral edema posteriorly and buttock bilaterally) Results - Labs CBC & BMP: 09/17/16 11:26 09/17/16 11:26 Specialty Discharge - Follow Up or Referrals Follow up with: Dale Chawla MD [Physician] - 1 Month
[2016-09-18] MEDS: TAMSULOSIN 0.4 MG CAPSULE PO SCH (21:19)
[2016-09-19] MEDS: FUROSEMIDE 20 MG/2 ML VIAL IV SCH ×2 (01:04→08:57)
[2016-09-19] MEDS: ALBUMIN 25% 25 GM in PREMIX 1 EACH IV SCH ×2 (01:05→08:55)
[2016-09-19 05:40] LABS: Albumin 2.9 G/DL (3.4-5.0); Calcium 8.4 MG/DL (8.5-10.1); Osmolality,Calculated 282.8 MOS/KG (273-304); Phosphorous 3.1 MG/DL (2.5-4.9); Potassium 3.9 MMOL/L (3.5-5.1)
[2016-09-19 05:49] LABS: Free T4 (Free Thyroxine) 1.65 NG/DL (0.76-1.46); Thyroid Stimulating Hormone 2.36 uIU/ml (0.358-3.74)
[2016-09-19] MEDS: ASPIRIN CHEW 81 MG TABLET PO SCH (08:56)
[2016-09-19] MEDS: VALSARTAN 80 MG TABLET PO SCH (08:56)
[2016-09-19] MEDS: ATORVASTATIN 40 MG TABLET PO SCH (08:57)
[2016-09-19] MEDS: POLYETHYLENE GLYCOL POWDER 17 GM PACK PO SCH (08:57)
[2016-09-19] MEDS: DESITIN 4OZ/NYSTATIN 15 GRAM MIXTURE PASTE TOP SCH ×2 (08:57→21:45)
[2016-09-19] MEDS: levETIRAcetam 500 MG TABLET PO SCH (08:57)
[2016-09-19] MEDS: ATENOLOL 25 MG TABLET PO SCH (08:57)
[2016-09-19] MEDS ORDERED: BISACODYL 10 MG SUPP RECTAL PRN (09:00)
--- NOTE | 2016-09-19 14:53 | ECHO Report ---
Carlos A Espinal Exam Date: 09/19/2016 09:37 Referring Physician: Technologist: matt Wills ARDMS, RVT Age: 81 Ht (in): 73 Wt (lb): 185 Gender: M Exam Location: [facility] Echo Indications: ST elevation (STEMI) myocardial infarction of unspecified site, CAD, UTI, Hypokalemia, Subdural hematoma, Edema BP: 136 / 54 HR: 73 Rhythm: Sinus Technical Quality: Very technically difficult study IMPRESSIONS Very technically difficult study. Left ventricular ejection fraction appears to be mildly reduced and is estimated at 40%, but endocardial definition is very poor on the study. Mild bilateral atrial enlargement. Mild mitral valve regurgitation. Mild aortic sclerosis with mild aortic valve regurgitation. MEASUREMENTS (Male / Female) Normal Values 2D ECHO LV Diastolic Diameter PLAX 4.5 cm 4.2 - 5.9 / 3.9 - 5.3 cm LV Systolic Diameter PLAX 2.4 cm LV Fractional Shortening PLAX 46.2 % IVS Diastolic Thickness 0.9 cm 0.6 - 1.0 / 0.6 - 0.9 cm LVPW Diastolic Thickness 0.9 cm 0.6 - 1.0 / 0.6 - 0.9 cm RV Internal Dim ED PLAX 2.9 cm Aortic Root Diameter 3.9 cm LA Systolic Diameter LX 2.5 cm 3.0 - 4.0 / 2.7 - 3.8 cm DOPPLER TR Peak Velocity 281.0 cm/s TR Peak Gradient 31.6 mmHg FINDINGS Left Ventricle Normal left ventricular cavity size. Normal left ventricular wall thickness. Left ventricular ejection fraction is estimated at 40%, but endocardial definition is very poor on the study. . Right Ventricle The right ventricle is poorly visualized but grossly normal. Right Atrium The right atrium is mildly reduced. Left Atrium The left atrium is mildly enlarged. Mitral Valve Mitral valve sclerosis. Mild mitral valve regurgitation. Aortic Valve Mild aortic valve calcification. Mild aortic valve regurgitation. Tricuspid Valve Morphologically normal tricuspid valve. Mild tricuspid valve regurgitation. Tricuspid regurgitation velocities suggest a PAP of 42 mmHg. Pulmonic Valve Pulmonic valve not well visualized. Pericardium Normal pericardium without effusion. Aorta Normal ascending aorta dimension. Amari Vergara (Electronically Signed) Final Date: 19 September 2016 14:52
--- NOTE | 2016-09-19 16:29 | Hospitalist Progress Note ---
Hospitalist: Subjective Interval history: Patient has become significantly more awake. He ate approximately 50% of his meals today per his son. Patient did have a bowel movement. No nausea or vomiting. His scrotum is slightly improved but he does continue to have diffuse anasarca. Urology has recommended continuing the Dumont until his edema has improved Exam - Constitutional Vitals: Period Temp Pulse Resp BP Sys/Mcfarlane Pulse Ox Last 24 Hr 97 F-99.0 F 51-103 16-20 97-137/49-79 99-100 Exam: frail elderly chronically ill appearing man, awake and alert in NAD RRR no M CTAB anteriorly, diminished at the bases Soft, NT, ND, +BS Warm no c/c. +1 pitting LE edema and severe scrotal and penile edema Results - Labs CBC & BMP: 09/17/16 11:26 09/19/16 04:24 - Impressions (1) Acute ST elevation myocardial infarction (STEMI) of inferior wall Status: Resolved Assessment and plan: - Complicated by ventricular fibrillation/ventricular tachycardia - s/p ballon angioplasty of right coronary artery - EKG consistent with sinus tach with occasional PVCs. - blood pressure control: on Atenolol, Valsartan; high intensity statin. Low dose ASA Current Visit: Yes (2) Subdural hematoma Status: Chronic Assessment and plan: Stable. Current Visit: Yes - Increased in size with cardiac issues - CT head 09/09/16 without acute change - MRI without acute process - Neurology signed off (3) Coronary artery disease Status: Chronic Assessment and plan: As above per #1 Current Visit: Yes (4) Hypokalemia - replace. Check Mg and Phos and replace as needed (5) Anasarca suspect due to protein calorie malnutrition and acute systolic CHF exacerbation (EF40%) Status: Acute Assessment and plan: Most notably in the scrotal area (improving) but additionally in the lower extremities bilaterally. - Did Lasix 20mg but change to IV BID with Albumin 25% 25g IV q8h x 3 doses. I will start Lasix and albumin infusion and adjust as needed. - Elevate scrotum -Appreciate urology input. We will keep Dumont until edema has improved - ECHO showed an EF of 40% with mild pulmonary hypertension and atrial enlargement. - RFP, magnesium in am - CXR show worsening infiltrates. We will recheck a BNP in the morning to see a response to the Lasix infusion. Current Visit: Yes (6) Urinary tract infection/ acute cystitis Status: Resolved Assessment and plan: ESBL Proteus mirabilis isolated on urine culture. s/p 7 days of Invanz. Patient does have dumont catheter, but afraid to remove it now with the amount of scrotal and penile edema that he has. Current Visit: Yes (7) Lethargy/ Debility - Hold Remeron. If no improvement, recheck CT head. - PT/OT consulted (8) Constipation -Continue home dose of Miralax. Dulcolax suppository as needed Case management aware of discharge plans to have a lifts into the home prior to discharge. DVT prophylaxis - avoid blood thinners due to expansion of SDH. SCDs for now D/W nurse, son and pt. All questions answered. Specialty Discharge - Follow Up or Referrals Follow up with: Dale Chawla MD [Physician] - 1 Month
[2016-09-19] MEDS ORDERED: FUROSEMIDE IV SCH (17:00)
[2016-09-19] MEDS ORDERED: SODIUM CHLORIDE 0.9% IV SCH (17:00)
[2016-09-19] MEDS ORDERED: ALBUMIN IV SCH (17:00)
[2016-09-19] MEDS: FUROSEMIDE IV SCH (17:32)
[2016-09-19] MEDS: ALBUMIN IV SCH (17:32)
[2016-09-19] MEDS: [UNRECOGNIZED DRUG - OTHER] IV SCH (17:32)
[2016-09-19] MEDS: TAMSULOSIN 0.4 MG CAPSULE PO SCH (21:45)
[2016-09-20] MEDS ORDERED: ATENOLOL 25 MG TABLET PO ONE (01:37)
[2016-09-20 06:34] LABS: Calcium 8.5 MG/DL (8.5-10.1); Magnesium 2.1 MG/DL (1.8-2.4); Phosphorous 3.4 MG/DL (2.5-4.9); Potassium 3.5 MMOL/L (3.5-5.1)
--- NOTE | 2016-09-20 08:05 | Hospitalist Progress Note ---
Hospitalist: Subjective Interval history: Pt eating 50 % of meals. No fever. +BM. Diuresed 2.3L overnight. Swelling improved. Awaiting PT/OT Exam - Constitutional Vitals: Period Temp Pulse Resp BP Sys/Mcfarlane Pulse Ox Last 24 Hr 97.0 F-100.3 F 69-103 16-20 103-137/54-79 98-100 Exam: frail elderly chronically ill appearing man, awake and alert in NAD RRR no M CTAB anteriorly, diminished at the bases Soft, NT, ND, +BS Warm no c/c. +trace diffuse edema decreased scrotal and penile edema. +Dumont in place Results - Labs CBC & BMP: 09/17/16 11:26 09/20/16 05:10 - Impressions (1) Acute ST elevation myocardial infarction (STEMI) of inferior wall Status: Resolved Assessment and plan: - Complicated by ventricular fibrillation/ventricular tachycardia - s/p balloon angioplasty of right coronary artery - EKG consistent with sinus tach with occasional PVCs. - blood pressure control: on Atenolol, Valsartan; high intensity statin. Low dose ASA Current Visit: Yes (2) Anasarca suspect due to protein calorie malnutrition and acute systolic CHF exacerbation (EF40%) Status: Acute Assessment and plan: Most notably in the scrotal area (improving) but additionally in the lower extremities bilaterally. - Did Lasix 20mg but change to IV BID with Albumin 25% 25g IV q8h x 3 doses. I will start Lasix and albumin infusion and adjust as needed. - Elevate scrotum -Appreciate urology input. We will keep Dumont until edema has improved - ECHO showed an EF of 40% with mild pulmonary hypertension and atrial enlargement. - Serial RFP, magnesium in am - CXR show worsening infiltrates. We will recheck a BNP in the morning to see a response to the Lasix infusion. Current Visit: Yes (3) Coronary artery disease Status: Chronic Assessment and plan: As above per #1 Current Visit: Yes (4) Hypokalemia - replace with scheduled potassium. Mg and Phos normal. Serial labs. Replace as needed (5) Subdural hematoma Status: Chronic Assessment and plan: Stable. Current Visit: Yes - Increased in size with cardiac issues - CT head 09/09/16 without acute change - MRI without acute process - Neurology signed off (6) Urinary tract infection/ acute cystitis due to GNR Status: Resolved Assessment and plan: 09/08 Ucx ESBL Proteus mirabilis isolated on urine culture. s/p 7 days of Invanz. 09/18 Repeat UCx growing GNR again. Will start empiric antibiotics (it could be contaminant due to Dumont has not been able to be removed.) - Patient does have dumont catheter, but concerned about possible obstruction due to edema. Current Visit: Yes (7) Lethargy/ Debility- improved - Holding Remeron. - PT/OT consulted (8) Constipation -Continue home dose of Miralax. Dulcolax suppository as needed Case management aware of discharge plans to have a lifts into the home prior to discharge. DVT prophylaxis - avoid blood thinners due to expansion of SDH. SCDs for now D/W nurse, daughter and pt. All questions answered. Specialty Discharge - Follow Up or Referrals Follow up with: Dale Chawla MD [Physician] - 1 Month
[2016-09-20] MEDS: POLYETHYLENE GLYCOL POWDER 17 GM PACK PO SCH (09:03)
[2016-09-20] MEDS: ATORVASTATIN 40 MG TABLET PO SCH (09:04)
[2016-09-20] MEDS: SULFAMETHOX/TRIMETHOPRIM 400-80 MG TABLET PO SCH ×2 (09:04→21:34)
[2016-09-20] MEDS: ASPIRIN CHEW 81 MG TABLET PO SCH (09:04)
[2016-09-20] MEDS: POTASSIUM CHLORIDE 20 MEQ TABLET PO SCH ×2 (09:04→21:33)
[2016-09-20] MEDS: VALSARTAN 80 MG TABLET PO SCH (09:04)
[2016-09-20] MEDS: levETIRAcetam 500 MG TABLET PO SCH (09:04)
[2016-09-20] MEDS: DESITIN 4OZ/NYSTATIN 15 GRAM MIXTURE PASTE TOP SCH ×2 (09:04→21:35)
[2016-09-20] MEDS: ATENOLOL 25 MG TABLET PO SCH (09:04)
[2016-09-20] MEDS: TAMSULOSIN 0.4 MG CAPSULE PO SCH (21:35)
[2016-09-21] MEDS: [UNRECOGNIZED DRUG - OTHER] IV SCH (01:30)
[2016-09-21] MEDS: FUROSEMIDE IV SCH (01:30)
[2016-09-21] MEDS: ALBUMIN IV SCH (01:30)
[2016-09-21 08:26] LABS: Calcium 8.5 MG/DL (8.5-10.1); Magnesium 2.2 MG/DL (1.8-2.4); Potassium 4.3 MMOL/L (3.5-5.1)
[2016-09-21] MEDS: SULFAMETHOX/TRIMETHOPRIM 400-80 MG TABLET PO SCH ×2 (08:38→21:38)
[2016-09-21] MEDS: ASPIRIN CHEW 81 MG TABLET PO SCH (08:38)
[2016-09-21] MEDS: POTASSIUM CHLORIDE 20 MEQ TABLET PO SCH ×2 (08:39→21:39)
[2016-09-21] MEDS: ATENOLOL 25 MG TABLET PO SCH (08:39)
[2016-09-21] MEDS: levETIRAcetam 500 MG TABLET PO SCH (08:39)
[2016-09-21] MEDS: ATORVASTATIN 40 MG TABLET PO SCH (08:39)
[2016-09-21] MEDS: POLYETHYLENE GLYCOL POWDER 17 GM PACK PO SCH (08:40)
[2016-09-21] MEDS: VALSARTAN 80 MG TABLET PO SCH (08:41)
[2016-09-21] MEDS: DESITIN 4OZ/NYSTATIN 15 GRAM MIXTURE PASTE TOP SCH ×2 (08:41→21:39)
--- NOTE | 2016-09-21 12:03 | Hospitalist Progress Note ---
Hospitalist: Subjective Interval history: Patient still eating at least 50% of his meals. Awake and alert. Answering questions appropriately. Denies any pain. Denies any shortness of breath. Positive bowel movements. Exam - Constitutional Vitals: Period Temp Pulse Resp BP Sys/Mcfarlane Pulse Ox Last 24 Hr 97 F-99.4 F 63-119 16-20 88-118/50-75 91-100 Exam: frail elderly chronically ill appearing man, awake and alert in NAD RRR no M CTAB anteriorly, diminished at the bases Soft, NT, ND, +BS Warm no c/c. +1 diffuse edema; scrotal and penile edema nearly resolved. +Dumont in place Results - Labs CBC & BMP: 09/17/16 11:26 09/21/16 07:16 - Impressions (1) Acute ST elevation myocardial infarction (STEMI) of inferior wall Status: Resolved Assessment and plan: - Complicated by ventricular fibrillation/ventricular tachycardia - s/p balloon angioplasty of right coronary artery - EKG consistent with sinus tach with occasional PVCs. - blood pressure control: Hold Atenolol, Valsartan; high intensity statin. Low dose ASA Current Visit: Yes (2) Anasarca suspect due to protein calorie malnutrition and acute systolic CHF exacerbation (EF40%) Status: Acute Assessment and plan: Most notably in the scrotal area (improving) but additionally in the lower extremities bilaterally. - Did Lasix 20mg but change to IV BID with Albumin 25% 25g IV q8h x 3 doses x 1 day but changed to LAD drip with much better results. - Pt I and O's were significantly different yesterday from day previously. 2300ml UOP 09/19 and only 300 ml out 09/20 - Weight has not been changed in the computer system. I think the weight is inaccurate and have discussed with nursing staff. I do not believe he received the Lasix/ albumin drip at all 09/20. Only 300 ml recorded... - Continue Lasix and albumin infusion and adjust as needed. Add diuril. Hold valsartan and Atenolol. - Cont to elevate scrotum - Urology has seen and recommended Dumont until edema has improved. Will keep while actively diuresing. - ECHO showed an EF of 40% with mild pulmonary hypertension and atrial enlargement. - Hold Atenolol and Diovan. When BP allows, restart Coreg low dose or metoprolol and consider low dose ACEi (lisinopril) once actively diuresed. - Serial RFP, magnesium in am - CXR show worsening infiltrates. Recheck CXR Current Visit: Yes (3) Coronary artery disease Status: Chronic Assessment and plan: As above per #1 Current Visit: Yes (4) Hypokalemia - replace with scheduled potassium. Mg and Phos normal. Serial labs. Replace as needed (5) Subdural hematoma Status: Chronic Assessment and plan: Stable. Current Visit: Yes - Increased in size with cardiac issues - CT head 09/09/16 without acute change - MRI without acute process - Neurology signed off (6) Urinary tract infection/ acute cystitis due to GNR Status: Resolved Assessment and plan: 09/08 Ucx ESBL Proteus mirabilis isolated on urine culture. s/p 7 days of Invanz. 09/18 Repeat UCx growing Proteus again. Cont Bactrim (it could be contaminant due to Dumont has not been able to be removed.) - Patient does have dumont catheter. While actively diuresing, will keep dumont and dc once aggressive diuresis stops. Current Visit: Yes (7) Lethargy/ Debility- improved - Holding Remeron. - PT/OT consulted (8) Constipation -Continue home dose of Miralax. Dulcolax suppository as needed Case management aware of discharge plans to have a lifts into the home prior to discharge. DVT prophylaxis - avoid blood thinners due to expansion of SDH. SCDs for now D/W nursing staff, family and pt. All questions answered. Specialty Discharge - Follow Up or Referrals Follow up with: Dale Chawla MD [Physician] - 1 Month
[2016-09-21] MEDS ORDERED: CHLOROTHIAZIDE 250 MG PO SCH (12:30)
--- NOTE | 2016-09-21 12:45 | XRay Report ---
XR chest 1V portable Indication: Shortness of breath. Chest one view: Comparison 09/18/2016. Improved aeration of the lung bases thought to represent decreased edema. There is still some degree of hazy obscuration particularly on the left. Mid and upper lungs are essentially clear. Central line, borderline cardiomegaly and tortuous thoracic aorta are stable. Impression: Improved aeration of the lung bases, presumably from decreased edema. PROCEDURE INTERPRETED AT [facility] DEPARTMENT OF RADIOLOGY Final Report Signed by: Marc White M.D.
--- NOTE | 2016-09-21 14:53 | XRay Report ---
XR chest 1V portable Indication: Chest pain. Chest one view: Since 1211, central line, tortuous thoracic aorta and hazy obscuration of lung bases is unchanged. No new infiltrates. Heart size remains upper limits normal. Impression: No change from 2.5 hours ago. PROCEDURE INTERPRETED AT [facility] DEPARTMENT OF RADIOLOGY Final Report Signed by: Marc White M.D.
[2016-09-21 15:02] LABS: ABG Base Excess -0.1 MMOL/L (-2.5-2.5); ABG HCO3 24.3 MMOL/L (20-26); ABG Oxygen Saturation 96.4 % (95-100); ABG PH 7.478 (7.35-7.45); ABG PO2 80.8 MM HG (80-95); ABG TCO2 21.4 MMOL/L (23-27); Allen Test Positive; Pt O2 Delivery Device Room Air
--- NOTE | 2016-09-21 15:14 | EKG Report ---
Stationary ECG Study [facility] Test Date: 09/21/2016 3:12:27 PM Pat Name: SYLVIA KAUR Department: Room: 231 Gender: M Administrative Officer: : 1935 Requested by: Marbella Ling Order Number: [id number] Reading MD: JESUS COPELAND Intervals [place] Rate: 90 P: 52 RI: 166 QRS: 56 QRSD: 80 T: 1 QT: 369 QTc: 417 Interpretive Statements SINUS RHYTHM WITH OCCASIONAL VENTRICULAR PREMATURE COMPLEXES NONSPECIFIC T-WAVE ABNORMALITY Electronically Signed On 09-22-16 10:11:01 CDT by JESUS COPELAND [email or web address]
--- NOTE | 2016-09-21 15:35 | Cardiology Consult Note ---
Assessment and Plan - Time spent with patient Time spent with patient: Greater than 30 minutes (Due to assessment, plan, and documentation.) (1) NSVT (nonsustained ventricular tachycardia) Status: Acute Assessment and plan: See plan of care listed below. Current Visit: Yes (2) Acute ST elevation myocardial infarction (STEMI) of inferior wall Status: Resolved Assessment and plan: See plan of care listed below. Current Visit: Yes (3) Coronary artery disease Status: Chronic Assessment and plan: See plan of care listed below. Current Visit: Yes (4) Subdural hematoma Status: Chronic Assessment and plan: See plan of care listed below. Current Visit: Yes (5) Systolic CHF Status: Acute Assessment and plan: See plan of care listed below. Current Visit: Yes Qualifiers: Congestive heart failure chronicity: acute Qualified Code(s): I50.21 - Acute systolic (congestive) heart failure History of Present Illness - Data of Consult Patient: known to practice within the last 3 years Consult date: 09/21/16 Requesting Physician: Marbella Ling - Consult Narrative Reason for consult: VTach, CHF History of present illness: Ruching Machine Operator: Dr. Vergara Mr. Espinal is a 81 year old male with a history of coronary artery disease, hypertension, cerebrovascular disease, recurrent subdural hematoma, who was just discharged from our facility on 09/28/2016. He was previously admitted after having multiple syncopal episodes at home. On route to the hospital he had ventricular tachycardia/fibrillation requiring emergent defibrillation by EMS and upon arrival CT of his head demonstrated small acute/ subacute subdural hematomas. Subsequent EKG after arrival showed ST elevation in the inferior leads and patient was taken to the [facility] where he underwent balloon angioplasty for complete occlusion of the right coronary artery in its mid segment. No stent was placed due to the subdural hematomas and concern over giving additional anticoagulation. During the procedure he had mental status changes which led to emergent intubation and repeat CT scan showed enlargement of his hematomas. He was referred to [facility] where he was evaluated by the neurosurgery team. He was not felt to need any surgical intervention at this time. He was subsequently transferred back to [facility] on September 03, 2016 where he has been pretty much bedbound. He has had significant edema in his scrotum and bilateral lower extremities. Recent echocardiogram on 09/19/2016 revealed EF 40%, mild mitral regurgitation, mild aortic insufficiency, mild bilateral atrial enlargement. He has been placed on a Lasix and albumin infusion. During admission he has had several episodes of nonsustained ventricular tachycardia along with frequent PVCs and PACs per telemetry rhythms. We are consulted to see him due to his abnormal rhythms. Overall, Mr. Seo has a very poor functional status and is very weak. The family will likely need to consider at the very least placement had a [facility] better rehab facility once he is well enough to be discharged. Yesterday his BNP was noted to be 1132 with creatinine of 0.7, up to 0.8 today. Potassium is 4.3, magnesium 2.2. His albumin level was noted to be 3.0. Chest x-ray today shows decrease edema in the lung bases. According to the record, his weight has remained the same since 09/16/2016. We need to maintain accurate intake and outputs and strict daily weights. Assessment/plan: 1. Nonsustained VT -we have started him on amiodarone 200 mg p.o. daily and vitamin C. He is unable to tolerate introduction of beta-kandice at this time due to hypotension. Continue replacement of potassium and magnesium levels per protocol. 2. History of ST elevation myocardial infarction of inferior wall -we are continuing statin and aspirin. His beta-kandice and ARB have been held due to hypotension. In the future, if his blood pressure allows, it would be ideal to resume these medicines or consider an JACKY inhibitor. 3. Coronary artery disease -he is status post balloon angioplasty of the mid RCA on 09/01/[address] Vergara. He has had previous stenting of the past. EKG currently shows no acute ischemic changes. 4. Subdural hematoma -head CT on 09/09/2016 showed no acute change. MRI revealed no acute processes. Neurology has seen and has signed off. 5. Systolic congestive heart failure - Recent echocardiogram on 09/19/2016 revealed EF 40%, mild mitral regurgitation, mild aortic insufficiency, mild bilateral atrial enlargement. He has been placed on a Lasix and albumin infusion. Dr. Vergara to follow with further plan and addendum. CC: Marbella Ling MD - Home Medications and Allergies Home Medications: Home Medications Medication Instructions Recorded Confirmed Type Atorvastatin [Lipitor] 80 mg PO DAILY 05/31/16 09/04/16 History Furosemide Tab [Lasix Tab] 20 mg PO DAILY 05/31/16 09/04/16 History Tamsulosin [Flomax] 0.4 mg PO BEDTIME 05/31/16 09/04/16 History Valsartan 160 mg PO BEDTIME 05/31/16 09/04/16 History levETIRAcetam [Levetiracetam] 500 mg PO BID 05/31/16 09/04/16 History Megestrol Liquid [Megace Liquid] 10 ml PO BID 06/16/16 09/04/16 History Clorazepate [Tranxene] 3.75 mg PO DAILY PRN 09/01/16 09/04/16 History Aspirin Chew Tab 81 mg PO DAILY 09/04/16 09/04/16 History Atenolol 25 mg PO DAILY 09/04/16 09/04/16 History Ergocalciferol (Vitamin D2) 50,000 unit PO Q709/04/16 09/04/16 History [Vitamin D2] Valsartan [Diovan] 160 mg PO BEDTIME 09/04/16 09/04/16 History Allergies/Adverse Reactions: Allergies Allergy/AdvReac Type Severity Reaction Status Date / Time No Known Allergies Allergy Unverified 06/16/16 12:28 Review of systems: - Constitutional: Present: fatigue, weakness, As per HPI. Absent: anorexia, chills, daytime sleepiness, excessive sweating, fever(s), frequent falls, headache(s), increased appetite, lethargy, malaise, night sweats, stops breathing during sleep, weight gain, weight loss. - EENT Eyes: Present: As per HPI. Absent: blurry vision, diplopia, loss of vision Ears: Present: As per HPI. Absent: decreased hearing, ear discharge, ear pain Nose, mouth and throat: Present: As per HPI. Absent: dysphagia, epistaxis, headache(s), hoarseness, lip swelling, nasal congestion, neck mass, neck pain, sinus pressure, sore throat, throat swelling, tongue swelling, vertigo - Cardiovascular: Present: dyspnea, palpitations, edema, as per HPI. Absent: chest pain at rest, chest pain with activity, dyspnea on exertion, claudication , diaphoresis, radiating jaw, neck or arm pain, lightheadedness, orthopnea, PND - Respiratory: Present: dyspnea, as per HPI. Absent: dyspnea on exertion, cough , hemoptysis, wheezing, snoring, pain on inspiration - Gastrointestinal: Present: As per HPI. Absent: abdominal pain, bloating, change in bowel habits, constipation, diarrhea, heartburn, hematemesis, hematochezia, loose stools, melena, nausea, vomiting - Genitourinary: Present: hematuria, As per HPI. Absent: difficulty urinating, dysuria, flank pain, nocturia, urinary frequency, urinary incontinence - Musculoskeletal: Present: muscle weakness, As per HPI. Absent: arthralgias, back pain, joint swelling, limited range of motion, muscle cramps, myalgias - Neurological: Present: abnormal gait, As per HPI. Absent: abnormal speech, behavioral changes, confusion, convulsions, disequilibrium, dizziness, focal weakness, frequent falls, headache(s), memory loss, numbness, paresthesias, radicular pain, syncope, tremor(s) - Psychiatric: Present: As per HPI. Absent: anxiety, confusion, depression, panic attacks - Endocrine: Present: fatigue, As per HPI. Absent: cold intolerance, heat intolerance, polydipsia, polyphagia - Hematologic/Lymphatic: Present: As per HPI. Absent: easy bleeding, easy bruising, lymphadenopathy Medical,Surgical,& Family Hx - Medical History Cardio: History of: Cardiac Dysrhythmia, Cerebrovascular Disease, CHF, CAD, Hypertension, MT No history of: Congenital Heart Disease, Pacemaker, PVD, Valvular Heart Disease, Cardiovascular Problems Neurology: History of: Cerebral Hemorrhage, Cerebrovascular Accident (multiple strokes), Seizures No history of: Brain Aneurysm, Cerebral Palsy, Dementia, Migraine, Multiple Sclerosis, Parkinson's Disease, Peripheral Neuropathy, TIA, Vertigo, Neurologocal Cancer Endocrine: History of: Dyslipidemia Renal: No history of: Renal (Kidney) Cancer, Dialysis, Renal Failure, Renal Problems Genitourinary: History of: Prostate Problems (prostate cancer) No history of: Bladder Problem, Kidney Stones, Recurring Urinary Tract Infections, Genitourinary Cancer, Problems Other: History of: Miscellaneous Medical Problems (DVT) - Surgical History Cardiac Surgeries: Sugical HX of: Cardiac Catheterization Patient Denies: Femoral-Popliteal Bypass Graft, Cardiac Surgery, Carotid Endarterectomy, Internal Defibrillator, Vascular Access Devices Thoracic Surgeries: Patient denies;: Kidney (Renal Surgery), Lithotripsy, Nephrectomy, Organ Transplant Neurologic Surgeries: Surgical HX of: Cerebral Hemorrhage Patient denies: Brain Aneurysm, Neurologic Surgery HEENT Surgeries: Patient denies: Carotid Endarterectomy Abdominal Surgeries: Patient denies: Splenectomy Reproductive Surgeries: Patient denies;: Cystoscopy, Genitourinary Surgery, Prostate Surgery - Social History Smoking Status: Never smoker Marital Status: Functional capacity: bed bound Physical Examination Vital Signs Temp Pulse Resp BP 97.8 F 95 H 18 111/67 09/03/16 22:00 09/03/16 22:00 09/03/16 22:00 09/03/16 22:00 Other: General appearance: Pleasant and cooperative. Normal weight, no acute distress. Appears chronically ill. - Head Head exam: Present: normal inspection, normocephalic, atraumatic. Absent: hematoma, laceration - Eye Eye exam: Present: EOMI. Absent: conjunctival injection, nystagmus, periorbital swelling, scleral icterus, laceration to eyelids Pupils: Present: PERRL. Absent: constricted, dilated, fixed, irregular, unequal - ENT ENT exam: Present: normal exam, normal external ear exam - Neck Neck exam: Present: normal inspection. Absent: lymphadenopathy, meningismus, tenderness, thyromegaly - Respiratory Respiratory exam: Present: clear to auscultation bilaterally, diminished in lower bases, unable to assess posteriorly due to habitus. Absent: accessory muscle use, chest wall tenderness - Cardiovascular Cardiovascular exam: Present: irregular rate and rhythm. Absent: carotid bruit , JVD, rubs, murmur - GI/Abdominal GI/Abdominal exam: Present: normal bowel sounds, soft. Scrotal edema present. Absent: distended, firm, guarding, hernia, mass, tenderness, rebound. - Extremities Exam Extremities exam: Present: normal capillary refill. Upper extremity pulses 2+. Lower extremity pulses 2+. 3+ pitting edema to BLE from hip to feet. Absent: calf tenderness -Musculoskeletal Exam Musculoskeletal: Present: No Fluid Collection, No Pain, Decreased Range of Motion - Back Exam Back exam: Present: Unable to assess due to habitus. Patient is unable to pull himself to sitting position even with moderate assistance. - Neurological Exam Neurological exam: Present: alert, grossly intact, right hand groundskeeping maintenance stronger than left. - Psychiatric Psychiatric exam: Present: normal affect, normal mood - Skin Skin exam: Present: normal color, warm, dry, intact. Absent: cyanosis, diaphoretic, rash, urticaria Result/EKG - Labs CBC & BMP: 09/17/16 11:26 09/21/16 07:16 Lab Results: I have reviewed the past 24 hour labs Labs: Laboratory Results - last 24 hr 09/21/16 09/21/16 09/21/16 07:16 07:16 14:58 ABG pH 7.478 H ABG pCO2 31.0 L ABG pO2 80.8 ABG HCO3 24.3 ABG Total CO2 21.4 L ABG O2 Saturation 96.4 ABG Base Excess -0.1 FiO2 21.00 Sodium 143 Potassium 4.3 Chloride 110 H Carbon Dioxide 26 Anion Gap 11.3 BUN 7 Creatinine 0.80 GFR Calculation 117 BUN/Creatinine Ratio 8.00 Glucose 93 Calculated Osmolality 282.0 Calcium 8.5 Phosphorus 3.3 Magnesium 2.2 - EKG EKG results: interpreted by me, sinus rhythm (frequent PVC/PACs noted per student assistant) Specialty Discharge - Follow Up or Referrals Follow up with: Dale Chawla MD [Physician] - 1 Month
[2016-09-21 15:38] LABS: Troponin I Only 0.035 NG/ML (0.00-0.045)
[2016-09-21] MEDS: AMIODARONE 200 MG TABLET PO SCH (18:32)
[2016-09-21] MEDS: ASCORBIC ACID 500 MG TABLET PO SCH (21:39)
[2016-09-21] MEDS: TAMSULOSIN 0.4 MG CAPSULE PO SCH (21:39)
[2016-09-22 04:15] LABS: Albumin 3.2 G/DL (3.4-5.0); Osmolality,Calculated 280.1 MOS/KG (273-304); Phosphorous 3.6 MG/DL (2.5-4.9); Potassium 4.8 MMOL/L (3.5-5.1)
--- NOTE | 2016-09-22 07:54 | Hospitalist Progress Note ---
Hospitalist: Subjective Interval history: Pt did not want breakfast this am. Denies cp or SOB. No fever. +BM recorded. Denies nausea, vomiting or abd pain. 1800 ml UOP over the last 24 hours. Exam - Constitutional Vitals: Period Temp Pulse Resp BP Sys/Mcfarlane Pulse Ox Last 24 Hr 96.9 F-98.2 F 76-119 16-22 99-128/55-78 94-100 Exam: frail elderly chronically ill appearing man, awake and alert in NAD RRR no M CTAB anteriorly, diminished at the bases Soft, NT, ND, +BS Warm no c/c. + trace diffuse edema upper thighs. +1 edema of lower extremities; scrotal and penile edema nearly resolved. +Dumont in place Results - Labs CBC & BMP: 09/17/16 11:26 09/22/16 03:16 - Impressions (1) Acute ST elevation myocardial infarction (STEMI) of inferior wall/ CAD Status: Resolved Assessment and plan: - Complicated by ventricular fibrillation/ventricular tachycardia - s/p balloon angioplasty of right coronary artery - EKG consistent with sinus tach with occasional PVCs. - blood pressure control: Hold Atenolol, Valsartan; high intensity statin. Low dose ASA Current Visit: Yes (2) Anasarca suspect due to protein calorie malnutrition and acute systolic CHF exacerbation (EF40%) Status: Acute Assessment and plan: Most notably in the scrotal area (improving) but additionally in the lower extremities bilaterally. - Did Lasix 20mg but change to IV BID with Albumin 25% 25g IV q8h x 3 doses x 1 day but changed to LAD drip with much better results. - Pt I and O's were significantly different yesterday from day previously. 2300ml UOP 09/19 and only 300 ml out 09/20 - Weight has not been changed in the computer system. I think the weight is inaccurate and have discussed with nursing staff. I do not believe he received the Lasix/ albumin drip at all 09/20. Only 300 ml recorded... - Continue Lasix and albumin infusion and adjust as needed. Cont Acetozolamide. Holding valsartan and Atenolol. - Cont to elevate scrotum - Urology has seen and recommended Dumont until edema has improved. Will keep while actively diuresing. - ECHO showed an EF of 40% with mild pulmonary hypertension and atrial enlargement. - Hold Atenolol and Diovan. When BP allows, restart Coreg low dose or metoprolol and consider low dose ACEi (lisinopril) once actively diuresed. - Serial RFP, magnesium in am - Repeat CXR showed improvement. Current Visit: Yes (3) Nonsustained v-tach Status: Chronic Assessment and plan: On tele. Cont amiodarone Current Visit: Yes (4) Hypokalemia - replaced. Cont scheduled potassium. Serial labs. (5) Subdural hematoma Status: Chronic Assessment and plan: Stable. Current Visit: Yes - Increased in size with cardiac issues - CT head 09/09/16 without acute change - MRI without acute process - Neurology signed off (6) Urinary tract infection/ acute cystitis due to Proteus Status: Resolved Assessment and plan: 09/08 Ucx ESBL Proteus mirabilis isolated on urine culture. s/p 7 days of Invanz. 09/18 Repeat UCx growing Proteus again. Cont Bactrim (it could be contaminant due to Dumont has not been able to be removed.) - Patient does have dumont catheter. While actively diuresing, will keep dumont and dc once aggressive diuresis stops. Current Visit: Yes (7) Lethargy/ Debility- improved - Holding Remeron. - PT/OT consulted (8) Constipation -Continue home dose of Miralax. Dulcolax suppository as needed Case management aware of discharge plans to have a lifts into the home prior to discharge. DVT prophylaxis - avoid blood thinners due to expansion of SDH. Stop SCDs and try MARYAM alexandra D/W nursing staff, family and pt. All questions answered. I will be away several days. One of my associates will follow in my absence. Specialty Discharge - Follow Up or Referrals Follow up with: Dale Chawla MD [Physician] - 1 Month
[2016-09-22] MEDS: POLYETHYLENE GLYCOL POWDER 17 GM PACK PO SCH (08:57)
[2016-09-22] MEDS: POTASSIUM CHLORIDE 20 MEQ TABLET PO SCH ×2 (08:59→21:10)
[2016-09-22] MEDS: levETIRAcetam 500 MG TABLET PO SCH (08:59)
[2016-09-22] MEDS: SULFAMETHOX/TRIMETHOPRIM 400-80 MG TABLET PO SCH ×2 (08:59→21:10)
[2016-09-22] MEDS: ASCORBIC ACID 500 MG TABLET PO SCH ×2 (08:59→21:09)
[2016-09-22] MEDS: ATORVASTATIN 40 MG TABLET PO SCH (08:59)
[2016-09-22] MEDS: ASPIRIN CHEW 81 MG TABLET PO SCH (08:59)
[2016-09-22] MEDS: DESITIN 4OZ/NYSTATIN 15 GRAM MIXTURE PASTE TOP SCH ×2 (09:00→21:10)
[2016-09-22] MEDS: AMIODARONE 200 MG TABLET PO SCH (09:00)
--- NOTE | 2016-09-22 12:13 | Cardiology Progress Note ---
Assessment and Plan (1) Debility Status: Acute Assessment and plan: The patient is going to need some sort of LTAC or swing bed, or perhaps hospice care. Current Visit: Yes (2) Subdural hematoma Status: Chronic Assessment and plan: The patient had subdural hematomas which enlarged shortly after coming into the hospital recently. He was transiently monitored at [facility] but did not need any surgical intervention and was transferred back here for continued recovery. Because of the subdural hematomas, we have had to be very cautious and conservative in anticoagulation. Current Visit: Yes (3) NSVT (nonsustained ventricular tachycardia) Status: Acute Assessment and plan: He has been monitored for 10 days or so and had 2 seconds of NSVT. This has not recurred since adjusting his medication. At some point we can consider stopping the cardiac monitoring. Current Visit: Yes (4) Advanced age Status: Acute Current Visit: Yes (5) Frailty Status: Acute Current Visit: Yes (6) Scrotal edema Status: Acute Current Visit: Yes (7) Coronary artery disease Status: Chronic Assessment and plan: He is status post recent percutaneous intervention to the right coronary artery without stent placement secondary to the subdural hematomas. He has been free of any angina since the intervention. Current Visit: Yes Cardiology - PN: Subj Interval history: The patient is clinically stable. There have been no significant changes overnight. He has not had any additional arrhythmias. He has no cardiac symptoms such as angina. He has chronic edema below the waist which is stable. He is extremely debilitated and weak at this time. Current Medications Acetazolamide Sodium (Diamox Inj) 125 mg IV Q12H [facility] Last Admin: 09/22/16 05:59 Dose: 125 mg Albuterol Sulfate (Proventil Neb) 2.5 mg RESP TX RT Q1H PRN PRN Reason: Shortness of Breath/Wheezing Amiodarone HCl (Cordarone Tab) 200 mg PO DAILY [facility] Last Admin: 09/22/16 09:00 Dose: 200 mg Ascorbic Acid (Vitamin C Tab) 1,000 mg PO BID [facility] Last Admin: 09/22/16 08:59 Dose: 1,000 mg Aspirin () 81 mg PO DAILY [facility] Last Admin: 09/22/16 08:59 Dose: 81 mg Atorvastatin Calcium (Lipitor) 80 mg PO DAILY [facility] Last Admin: 09/22/16 08:59 Dose: 80 mg Bisacodyl (Dulcolax Supp) 10 mg RECTAL DAILY PRN PRN Reason: Constipation Heparin Sodium (Porcine) () 50 units IV Q12H [facility] Last Admin: 09/22/16 08:58 Dose: 50 units Heparin Sodium (Porcine) () 50 units IV PRN PRN PRN Reason: central line lock Hydralazine HCl (Apresoline Inj) 10 mg IV Q6H PRN PRN Reason: Blood Pressure-Increased Last Admin: 09/03/16 22:21 Dose: 10 mg Potassium Chloride 20 meq/ (Premix) 100 mls @ 50 mls/hr IV .PER PROTOCOL PRN; Protocol PRN Reason: Per Protocol Last Infusion: 09/17/16 16:04 Dose: Infused Potassium Chloride 10 meq/ (Premix) 100 mls @ 100 mls/hr IV .PER PROTOCOL PRN; Protocol PRN Reason: Per Protocol Last Infusion: 09/17/16 14:04 Dose: Infused Furosemide 40 mg/ Furosemide 10 mg/ Albumin Human 25 gm/Sodium Chloride 150 mls @ 5 mls/hr IV .Q24H [facility] Last Admin: 09/21/16 01:30 Dose: 5 mls/hr Levetiracetam (Keppra Tab) 500 mg PO DAILY [facility] Last Admin: 09/22/16 08:59 Dose: 500 mg Nystatin/Zinc Oxide (Skin Protectant Mixture) 1 applic TOP BID [facility] Last Admin: 09/22/16 09:00 Dose: 1 applic Ondansetron HCl (Zofran Inj) 4 mg IV Q4H PRN PRN Reason: Nausea Polyethylene Glycol (Miralax) 17 gm PO DAILY [facility] Last Admin: 09/22/16 08:57 Dose: 17 gm Potassium Chloride (K Dur) 20 meq PO BID [facility] Last Admin: 09/22/16 08:59 Dose: 20 meq Tamsulosin HCl (Flomax) 0.4 mg PO BEDTIME [facility] Last Admin: 09/21/16 21:39 Dose: 0.4 mg Trimethoprim/Sulfamethoxazole (Bactrim Tab) 1 tablet PO BID [facility] Last Admin: 09/22/16 08:59 Dose: 1 tablet Exam (Progress Note) - Constitutional Vitals: Period Temp Pulse Resp BP Sys/Mcfarlane Pulse Ox Last 24 Hr 96.9 F-98.2 F 78-90 18-22 100-128/55-78 96-100 Exam: General: Frail, elderly, chronically ill-appearing HEENT: Normocephalic, atraumatic Neck: Supple Neck, Midline Trachea Cardiac: Regular rhythm, 2/6 systolic murmur, no gallop, no rub Lungs: Clear to Ascultation, No Wheeze, Rales, Rhonchi Neuro: Cranial Nerve 2-12 grossly intact, marked diffuse generalized weakness Abdomen: Soft, Active Bowel Sounds, No Masses, No Pulsations/Bruits Skin: Normal color, no rash Extremities: No Clubbing, No Cyanosis, moderate to severe diffuse puffy lower extremity edema with the appearance of hypoalbuminemia, Normal Upper Extr. Pulses Musculoskeletal: No acute abnormality noted Psychiatric: The patient is mildly drowsy but arouses and answers questions appropriately Result/EKG - Labs CBC & BMP: 09/17/16 11:26 09/22/16 03:16 Lab Results: I have reviewed the past 24 hour labs Labs: Laboratory Results - last 24 hr 09/21/16 09/21/16 09/22/16 14:51 14:58 03:16 ABG pH 7.478 H ABG pCO2 31.0 L ABG pO2 80.8 ABG HCO3 24.3 ABG Total CO2 21.4 L ABG O2 Saturation 96.4 ABG Base Excess -0.1 FiO2 21.00 Sodium 142 Potassium 4.8 Chloride 110 H Carbon Dioxide 23 Anion Gap 13.8 BUN 7 Creatinine 0.90 GFR Calculation 111 BUN/Creatinine Ratio 7.00 Glucose 94 Calculated Osmolality 280.1 Calcium 9.0 Phosphorus 3.6 Total Creatine Kinase 40 CK-MB (CK-2) < 1.0 Troponin I 0.035 Albumin 3.2 L - EKG EKG results: interpreted by me Specialty Discharge - Follow Up or Referrals Follow up with: Dale Chawla MD [Physician] - 1 Month
[2016-09-22] MEDS: [UNRECOGNIZED DRUG - OTHER] IV SCH (21:10)
[2016-09-22] MEDS: FUROSEMIDE IV SCH (21:10)
[2016-09-22] MEDS: TAMSULOSIN 0.4 MG CAPSULE PO SCH (21:10)
[2016-09-22] MEDS: ALBUMIN IV SCH (21:10)
[2016-09-23 04:08] LABS: Albumin 3.2 G/DL (3.4-5.0); Calcium 8.4 MG/DL (8.5-10.1); Osmolality,Calculated 273.5 MOS/KG (273-304); Phosphorous 3.3 MG/DL (2.5-4.9); Potassium 4.1 MMOL/L (3.5-5.1)
[2016-09-23] MEDS: SULFAMETHOX/TRIMETHOPRIM 400-80 MG TABLET PO SCH ×2 (09:28→20:32)
[2016-09-23] MEDS: ATORVASTATIN 40 MG TABLET PO SCH (09:28)
[2016-09-23] MEDS: ASPIRIN CHEW 81 MG TABLET PO SCH (09:28)
[2016-09-23] MEDS: levETIRAcetam 500 MG TABLET PO SCH (09:28)
[2016-09-23] MEDS: POTASSIUM CHLORIDE 20 MEQ TABLET PO SCH ×2 (09:28→20:33)
[2016-09-23] MEDS: POLYETHYLENE GLYCOL POWDER 17 GM PACK PO SCH (09:29)
[2016-09-23] MEDS: ASCORBIC ACID 500 MG TABLET PO SCH ×2 (09:29→20:32)
[2016-09-23] MEDS: AMIODARONE 200 MG TABLET PO SCH (09:29)
[2016-09-23] MEDS: DESITIN 4OZ/NYSTATIN 15 GRAM MIXTURE PASTE TOP SCH ×2 (09:30→20:33)
--- NOTE | 2016-09-23 10:12 | Cardiology Progress Note ---
Assessment and Plan (1) Debility Status: Acute Assessment and plan: The patient is wanting to go home with home health assistance. I will defer setting this up to his admitting team. Current Visit: Yes (2) Subdural hematoma Status: Chronic Assessment and plan: The patient had subdural hematomas which enlarged shortly after coming into the hospital recently. He was transiently monitored at [facility] but did not need any surgical intervention and was transferred back here for continued recovery. Because of the subdural hematomas, we have had to be very cautious and conservative in anticoagulation. Current Visit: Yes (3) NSVT (nonsustained ventricular tachycardia) Status: Acute Assessment and plan: He has been monitored for 20 days or so and has occasional PVCs and had 2 seconds of NSVT. This has not recurred since adjusting his medication. I think we can discontinue his cardiac monitoring at this time. I do not have any changes recommended for his cardiac management. I think he can be discharged home when he is otherwise ready and follow-up with me in a month or so with CBC, CMP, and lipid. I am rotating off the service at this time, and I am going to drop off his case. Please call cardiology/[facility] if any new cardiac issues arise prior to discharge. Current Visit: Yes (4) Advanced age Status: Acute Current Visit: Yes (5) Frailty Status: Acute Current Visit: Yes (6) Scrotal edema Status: Acute Current Visit: Yes (7) Coronary artery disease Status: Chronic Assessment and plan: He is status post recent percutaneous intervention to the right coronary artery without stent placement secondary to the subdural hematomas. He has been free of any angina since the intervention. Current Visit: Yes Cardiology - PN: Subj Interval history: Clinically the patient is doing very well. He has not had any cardiac issues or arrhythmias. He is free of angina. His edema is improving steadily. The patient and family are asking when they can go home with some sort of home health assistance. From my standpoint I think that is reasonable once his edema is improved. He has not had any further cardiac arrhythmias and I am going to discontinue his telemetry at this time. I would continue his current management as he is steadily improving. Current Medications Acetazolamide Sodium (Diamox Inj) 125 mg IV Q12H [facility] Last Admin: 09/23/16 06:35 Dose: 125 mg Albuterol Sulfate (Proventil Neb) 2.5 mg RESP TX RT Q1H PRN PRN Reason: Shortness of Breath/Wheezing Amiodarone HCl (Cordarone Tab) 200 mg PO DAILY [facility] Last Admin: 09/23/16 09:29 Dose: 200 mg Ascorbic Acid (Vitamin C Tab) 1,000 mg PO BID [facility] Last Admin: 09/23/16 09:29 Dose: 1,000 mg Aspirin () 81 mg PO DAILY [facility] Last Admin: 09/23/16 09:28 Dose: 81 mg Atorvastatin Calcium (Lipitor) 80 mg PO DAILY [facility] Last Admin: 09/23/16 09:28 Dose: 80 mg Bisacodyl (Dulcolax Supp) 10 mg RECTAL DAILY PRN PRN Reason: Constipation Heparin Sodium (Porcine) () 50 units IV PRN PRN PRN Reason: central line lock Hydralazine HCl (Apresoline Inj) 10 mg IV Q6H PRN PRN Reason: Blood Pressure-Increased Last Admin: 09/03/16 22:21 Dose: 10 mg Potassium Chloride 20 meq/ (Premix) 100 mls @ 50 mls/hr IV .PER PROTOCOL PRN; Protocol PRN Reason: Per Protocol Last Infusion: 09/17/16 16:04 Dose: Infused Potassium Chloride 10 meq/ (Premix) 100 mls @ 100 mls/hr IV .PER PROTOCOL PRN; Protocol PRN Reason: Per Protocol Last Infusion: 09/17/16 14:04 Dose: Infused Furosemide 40 mg/ Furosemide 10 mg/ Albumin Human 25 gm/Sodium Chloride 150 mls @ 5 mls/hr IV .Q24H [facility] Last Admin: 09/22/16 21:10 Dose: 5 mls/hr Levetiracetam (Keppra Tab) 500 mg PO DAILY [facility] Last Admin: 09/23/16 09:28 Dose: 500 mg Nystatin/Zinc Oxide (Skin Protectant Mixture) 1 applic TOP BID [facility] Last Admin: 09/23/16 09:30 Dose: 1 applic Ondansetron HCl (Zofran Inj) 4 mg IV Q4H PRN PRN Reason: Nausea Polyethylene Glycol (Miralax) 17 gm PO DAILY [facility] Last Admin: 09/23/16 09:29 Dose: 17 gm Potassium Chloride (K Dur) 20 meq PO BID [facility] Last Admin: 09/23/16 09:28 Dose: 20 meq Tamsulosin HCl (Flomax) 0.4 mg PO BEDTIME [facility] Last Admin: 09/22/16 21:10 Dose: 0.4 mg Trimethoprim/Sulfamethoxazole (Bactrim Tab) 1 tablet PO BID [facility] Last Admin: 09/23/16 09:28 Dose: 1 tablet Exam (Progress Note) - Constitutional Vitals: Period Temp Pulse Resp BP Sys/Mcfarlane Pulse Ox Last 24 Hr 97 F-98.3 F 79-146 18-20 90-138/57-78 94-100 Exam: General: Frail, elderly, chronically ill-appearing HEENT: Normocephalic, atraumatic Neck: Supple Neck, Midline Trachea Cardiac: Regular rhythm, 2/6 systolic murmur, no gallop, no rub Lungs: Clear to Ascultation, No Wheeze, Rales, Rhonchi Neuro: Cranial Nerve 2-12 grossly intact, marked diffuse generalized weakness Abdomen: Soft, Active Bowel Sounds, No Masses, No Pulsations/Bruits Skin: Normal color, no rash Extremities: No Clubbing, No Cyanosis, moderate diffuse puffy lower extremity edema with the appearance of hypoalbuminemia, Normal Upper Extr. Pulses Musculoskeletal: No acute abnormality noted Psychiatric: The patient is mildly drowsy but arouses and answers questions appropriately Result/EKG - Labs CBC & BMP: 09/17/16 11:26 09/23/16 02:18 Lab Results: I have reviewed the past 24 hour labs Labs: Laboratory Results - last 24 hr 09/23/16 02:18 Sodium 139 Potassium 4.1 Chloride 108 H Carbon Dioxide 22 Anion Gap 13.1 BUN 8 Creatinine 0.90 GFR Calculation 111 BUN/Creatinine Ratio 8.00 Glucose 88 Calculated Osmolality 273.5 Calcium 8.4 L Phosphorus 3.3 Albumin 3.2 L - EKG EKG results: interpreted by me Specialty Discharge - Follow Up or Referrals Follow up with: Dale Chawla MD [Physician] - 1 Month
--- NOTE | 2016-09-23 10:27 | Hospitalist Progress Note ---
Assessment and Plan (1) Acute ST elevation myocardial infarction (STEMI) of inferior wall Status: Resolved Current Visit: Yes (2) Systolic CHF Status: Acute Current Visit: Yes Qualifiers: Congestive heart failure chronicity: acute Qualified Code(s): I50.21 - Acute systolic (congestive) heart failure (3) Bilateral subdural hematomas Status: Acute Current Visit: Yes (4) NSVT (nonsustained ventricular tachycardia) Status: Acute Current Visit: Yes (5) Coronary artery disease Status: Chronic Assessment and plan: -Continue diuresis with Lasix and albumin drip, urinary output improved today -Patient appears to be improving -Continue to hold atenolol and valsartan; patient may be started on an JACKY inhibitor and Coreg at the time of his discharge -Continue amiodarone, patient has not had any V tach episodes today -Edema is improving continue to monitor closely -Consult case management, patient will need home health at the time of his discharge, family does not want the patient to go home with a Johns catheter but they are willing to have condom catheters placed at night -Patient will also need lifts at home due to his inability to ambulate due to debility Current Visit: Yes Hospitalist: Subjective Interval history: Patient is more alert and responsive this morning. He is without complaints at the time of my examination. He has had improved urinary output overnight. He denies any chest pain or shortness of breath at the time of my examination. Exam - Constitutional Vitals: Period Temp Pulse Resp BP Sys/Mcfarlane Pulse Ox Last 24 Hr 97 F-98.3 F 79-146 18-20 90-138/57-78 94-100 General appearance: other (Chronically ill-appearing elderly male, awake and responsive) - Head Head exam: Present: normal inspection - Eye Eye exam: Present: EOMI Pupils: Present: ALLEN - ENT ENT exam: Present: normal exam, normal oropharynx - Neck Neck exam: Present: normal inspection. Absent: lymphadenopathy - Respiratory Respiratory exam: Present: clear to auscultation bilaterally. Absent: rhonchi, stridor, wheezes - Cardiovascular Cardiovascular exam: Present: irregular rhythm, systolic murmur. Absent: rubs, tachycardia - GI/Abdominal GI/Abdominal exam: Present: normal bowel sounds, soft. Absent: tenderness - Extremities Exam Extremities exam: Present: normal inspection, edema (3+ pitting edema bilaterally in the lower extremities) - Neurological Exam Neurological exam: Present: alert, CN II-XII intact - Psychiatric Psychiatric exam: Present: normal affect, normal mood - Skin Skin exam: Present: normal color Results - Labs CBC & BMP: 09/17/16 11:26 09/23/16 02:18 Lab Results: I have reviewed the past 24 hour labs Specialty Discharge - Follow Up or Referrals Follow up with: Dale Chawla MD [Physician] - 1 Month
[2016-09-23] MEDS: TAMSULOSIN 0.4 MG CAPSULE PO SCH (20:33)
[2016-09-24] MEDS: [UNRECOGNIZED DRUG - OTHER] IV SCH (05:46)
[2016-09-24] MEDS: ALBUMIN IV SCH (05:46)
[2016-09-24] MEDS: FUROSEMIDE IV SCH (05:46)
[2016-09-24 06:13] LABS: Basophils % 0.5 % (0.0-0.8); Eosinophils # 0.2 10*3/uL (0.0-0.87); Eosinophils % 3.8 % (0.00-10.9); Hematocrit 29.9 VOL% (42.0-52.0); Hemoglobin 9.7 GM/DL (14.0-18.0); Immature Granulocytes % 0.5 %; Immature Granulocytes Absolute 0.03 #; Lymphocytes # 1.3 10*3/uL (1.4-4.0); Lymphocytes % 22.2 % (21.2-54.2); Mean Corpuscular HGB Conc 32.4 GM/DL (32-36); Mean Corpuscular Hemoglobin 30 PG (27-34); Mean Corpuscular Volume 93.7 FL (87-102); Mean Platelet Volume 11.2 FL (9.6-12.0); Monocytes # 0.7 10*3/uL (0.11-0.8); Monocytes % 11.2 % (1.7-12.7); Neutrophils # 3.7 10*3/uL (1.4-7.4); Neutrophils % 61.8 % (38.7-73.9); Platelet Count 222 T/CUMM (130-400); Red Blood Count 3.19 MC/CUMM (3.8-5.5); Red Cell Distribution Width 13.6 % (9.3-17.3)
[2016-09-24 06:31] LABS: Calcium 9.3 MG/DL (8.5-10.1); Osmolality,Calculated 268.8 MOS/KG (273-304); Potassium 3.9 MMOL/L (3.5-5.1)
[2016-09-24 06:38] LABS: Albumin 3.7 G/DL (3.4-5.0); Calcium 9.2 MG/DL (8.5-10.1); Osmolality,Calculated 268.8 MOS/KG (273-304); Phosphorous 3.8 MG/DL (2.5-4.9)
--- NOTE | 2016-09-24 08:43 | Case Mgmt Physician Query Form ---
LONG STAY PHYSICIAN RECERTIFICATION *This form is to be completed for all Medicare patients before they reach day 20 of their hospitalization. Please complete each section as appropriate.* I certify that hospitalization, and continued hospitalization, for this patient is medically necessary as follows: 1) Reasons of either continued hospitalization of the patient for medical treatment or medically required diagnostic study or special or unusual services for cost outlier cases are as follows: new onset vomiting 2) Estimated time patient will need to remain in hospital: 2-3 days 3) Plan for Post Hospital Care: ( ) Home with Primary Care Follow up ( ) Home with Home Health Follow up ( ) LTACH/ Acute Care Rehab/ SNF/Halfway ( x) Other: undetermined at this time If you have any questions, please contact me. Thank you, Mari GONG Email:[email or web address] you have any questions, please contact me. Thank you, Kavita Orlando R.N. Case Management P: [phone] F: [phone] E: [email or web address]
[2016-09-24] MEDS: ASPIRIN CHEW 81 MG TABLET PO SCH (09:11)
[2016-09-24] MEDS: AMIODARONE 200 MG TABLET PO SCH (09:12)
[2016-09-24] MEDS: SULFAMETHOX/TRIMETHOPRIM 400-80 MG TABLET PO SCH ×2 (09:12→21:20)
[2016-09-24] MEDS: POTASSIUM CHLORIDE 20 MEQ TABLET PO SCH ×2 (09:13→21:20)
[2016-09-24] MEDS: levETIRAcetam 500 MG TABLET PO SCH (09:13)
[2016-09-24] MEDS: ATORVASTATIN 40 MG TABLET PO SCH (09:13)
[2016-09-24] MEDS: ASCORBIC ACID 500 MG TABLET PO SCH ×2 (09:14→21:20)
[2016-09-24] MEDS: DESITIN 4OZ/NYSTATIN 15 GRAM MIXTURE PASTE TOP SCH ×2 (09:14→21:20)
[2016-09-24] MEDS: POLYETHYLENE GLYCOL POWDER 17 GM PACK PO SCH (09:14)
--- NOTE | 2016-09-24 10:11 | Hospitalist Progress Note ---
Assessment and Plan (1) Acute ST elevation myocardial infarction (STEMI) of inferior wall Status: Resolved Assessment and plan: Impression: 1. Inferior wall STEMI 2. Generalized anasarca 3. Subdural hematoma, managed nonsurgically Plan: We will discontinue the Lasix and albumin infusion, and switch to oral diuretics. If he tolerates these, I think we can let him go home in the morning. This note was completed using S[employer] voice recognition software. There may be gas maker helper errors as a result. Current Visit: Yes Hospitalist: Subjective Interval history: Follow-up coronary disease with STEMI, subdural hematoma, and debility. The patient is apparently poorly mobile at home. His edema has improved, but he still has some lower extremity edema. Cardiology signed off the case yesterday, and has cleared him for discharge. We will need to get him off of the Lasix and albumin infusion. Will also need to get his catheter out. He reports no chest pain. There has been no further cardiac rhythm disturbance following the short bursts of ventricular tachycardia. Exam - Constitutional Vitals: Period Temp Pulse Resp BP Sys/Mcfarlane Pulse Ox Last 24 Hr 97.0 F-98.1 F 78-101 18-20 100-144/64-82 95-100 Vital signs are noted above. Heart is regular with a soft systolic murmur. Chest is fairly clear. Scrotal edema is improving. He has 3 or 4 mm of pretibial lower extremity edema. He is awake and alert. Results - Labs CBC & BMP: 09/24/16 05:14 09/24/16 05:14 Specialty Discharge - Follow Up or Referrals Follow up with: Dale Chawla MD [Physician] - 1 Month
[2016-09-24] MEDS ORDERED: ACETAMINOPHEN 325 MG TABLET PO PRN (11:25)
[2016-09-24] MEDS: FUROSEMIDE 20 MG TABLET PO SCH (17:31)
[2016-09-24] MEDS: TAMSULOSIN 0.4 MG CAPSULE PO SCH (21:20)
[2016-09-25] MEDS: ASPIRIN CHEW 81 MG TABLET PO SCH (08:01)
[2016-09-25] MEDS: SULFAMETHOX/TRIMETHOPRIM 400-80 MG TABLET PO SCH ×2 (08:01→20:59)
[2016-09-25] MEDS: POTASSIUM CHLORIDE 20 MEQ TABLET PO SCH ×2 (08:01→20:56)
[2016-09-25] MEDS: ATORVASTATIN 40 MG TABLET PO SCH (08:01)
[2016-09-25] MEDS: FUROSEMIDE 20 MG TABLET PO SCH ×2 (08:01→18:48)
[2016-09-25] MEDS: levETIRAcetam 500 MG TABLET PO SCH (08:01)
[2016-09-25] MEDS: AMIODARONE 200 MG TABLET PO SCH (08:02)
[2016-09-25] MEDS: DESITIN 4OZ/NYSTATIN 15 GRAM MIXTURE PASTE TOP SCH ×2 (08:02→23:51)
[2016-09-25] MEDS: ASCORBIC ACID 500 MG TABLET PO SCH ×2 (08:02→20:59)
[2016-09-25] MEDS: POLYETHYLENE GLYCOL POWDER 17 GM PACK PO SCH ×2 (08:03→09:04)
--- NOTE | 2016-09-25 10:04 | Hospitalist Progress Note ---
Assessment and Plan (1) Acute ST elevation myocardial infarction (STEMI) of inferior wall Status: Resolved Assessment and plan: Impression: 1. Inferior wall STEMI 2. Generalized anasarca 3. Subdural hematoma, managed nonsurgically 4. Vomiting, etiology not known 5. Urinary tract infection Plan: Continue oral diuretics and antibiotics. X-ray of the abdomen to rule out obstructive process. Otherwise, continue current care. This note was completed using [employer] voice recognition software. There may be settlement processor errors as a result. Current Visit: Yes Hospitalist: Subjective Interval history: Follow-up anasarca, STEMI, and subdural hematoma. The patient has had some episodes of vomiting this morning. He apparently had 2 stools yesterday. One was liquid, and the other was semi-formed. He has not had any GI bleeding from above or below. We discontinued the albumin/Lasix infusion yesterday, and he has not had any worsening edema. There is no chest pain or dyspnea. Exam - Constitutional Vitals: Period Temp Pulse Resp BP Sys/Mcfarlane Pulse Ox Last 24 Hr 96.3 F-98.3 F 68-110 18-20 93-137/61-101 95-100 Vital signs are noted above. Heart is regular with a soft systolic murmur. Chest is clear anteriorly. Abdomen has some high-pitched bowel sounds. Leg edema is unchanged from yesterday. He is awake and alert Results - Labs CBC & BMP: 09/24/16 05:14 09/24/16 05:14 Specialty Discharge - Follow Up or Referrals Follow up with: Dale Chawla MD [Physician] - 1 Month
--- NOTE | 2016-09-25 14:11 | XRay Report ---
Exam: XR KUB Date: 09/25/2016 10:01 AM Comparison: None Indication: Vomiting Technique:[Supine abdomen] Findings: Nonobstructed bowel gas pattern. IVC filter. Degenerative changes with vascular calcifications. Impression: Nonobstructed bowel gas pattern. IVC filter. PROCEDURE INTERPRETED AT [facility] DEPARTMENT OF RADIOLOGY Final Report Signed by: Dr. Idania Virk
[2016-09-25] MEDS: TAMSULOSIN 0.4 MG CAPSULE PO SCH (20:59)
[2016-09-26] MEDS: AMIODARONE 200 MG TABLET PO SCH (08:20)
[2016-09-26] MEDS: ASPIRIN CHEW 81 MG TABLET PO SCH (08:20)
[2016-09-26] MEDS: FUROSEMIDE 20 MG TABLET PO SCH ×2 (08:20→16:20)
[2016-09-26] MEDS: levETIRAcetam 500 MG TABLET PO SCH (08:20)
[2016-09-26] MEDS: POLYETHYLENE GLYCOL POWDER 17 GM PACK PO SCH (08:22)
[2016-09-26] MEDS: DESITIN 4OZ/NYSTATIN 15 GRAM MIXTURE PASTE TOP SCH ×2 (08:22→22:37)
--- NOTE | 2016-09-26 09:14 | Hospitalist Progress Note ---
Assessment and Plan (1) Acute ST elevation myocardial infarction (STEMI) of inferior wall Status: Resolved Assessment and plan: Impression: 1. Inferior wall STEMI 2. Generalized anasarca 3. Subdural hematoma, managed nonsurgically 4. Vomiting, resolved 5. Urinary tract infection Plan: He looks like he is approaching maximal hospital benefit. We will plan on discharge in the morning. This note was completed using [employer] voice recognition software. There may be healthcare applications analyst errors as a result. Current Visit: Yes Hospitalist: Subjective Interval history: Follow-up STEMI, subdural hematoma, urinary tract infection, vomiting, and anasarca. Patient says that he is feeling better. The vomiting is resolved. The x-ray of the abdomen did not show an obstructive process. I discussed discharge plans with the family. They want to take him home with home health. They already have equipment at home. The patient is tolerating his diet. Exam - Constitutional Vitals: Period Temp Pulse Resp BP Sys/Mcfarlane Pulse Ox Last 24 Hr 96.5 F-98.2 F 81-103 18-81 103-132/60-98 95-100 Vital signs are noted above. Heart is regular with distant tones and no murmur. Lungs are clear with no rales or wheezes. Abdomen is soft without mass or tenderness. He has a few millimeters of peripheral edema. He is awake and conversant Results - Labs CBC & BMP: 09/24/16 05:14 09/24/16 05:14 Specialty Discharge - Follow Up or Referrals Follow up with: Dale Chawla MD [Physician] - 1 Month
[2016-09-26] MEDS: ATORVASTATIN 40 MG TABLET PO SCH (11:25)
[2016-09-26] MEDS: POTASSIUM CHLORIDE 20 MEQ TABLET PO SCH ×2 (11:25→22:36)
[2016-09-26] MEDS: ASCORBIC ACID 500 MG TABLET PO SCH ×2 (11:25→22:36)
[2016-09-26] MEDS: SULFAMETHOX/TRIMETHOPRIM 400-80 MG TABLET PO SCH ×2 (11:25→22:37)
[2016-09-26] MEDS: TAMSULOSIN 0.4 MG CAPSULE PO SCH (22:37)
[2016-09-27] MEDS: levETIRAcetam 500 MG TABLET PO SCH (09:13)
[2016-09-27] MEDS: FUROSEMIDE 20 MG TABLET PO SCH (09:13)
[2016-09-27] MEDS: AMIODARONE 200 MG TABLET PO SCH (09:13)
[2016-09-27] MEDS: SULFAMETHOX/TRIMETHOPRIM 400-80 MG TABLET PO SCH (09:13)
[2016-09-27] MEDS: ASPIRIN CHEW 81 MG TABLET PO SCH (09:13)
[2016-09-27] MEDS: ATORVASTATIN 40 MG TABLET PO SCH (09:18)
[2016-09-27] MEDS: POTASSIUM CHLORIDE 20 MEQ TABLET PO SCH (09:18)
[2016-09-27] MEDS: ASCORBIC ACID 500 MG TABLET PO SCH (09:18)
[2016-09-27] MEDS: DESITIN 4OZ/NYSTATIN 15 GRAM MIXTURE PASTE TOP SCH (09:20)
[2016-09-27] MEDS: POLYETHYLENE GLYCOL POWDER 17 GM PACK PO SCH (09:20)
--- NOTE | 2016-09-27 09:36 | Discharge Summary ---
Hospital Course - Hospital Course Hospital Course: Discharge diagnosis: Inferior wall STEMI Ventricular tachycardia Subdural hematoma Urinary tract infection Deconditioning The patient originally presented to the hospital with some chest pain and was found to have a STEMI. He was taken to the [facility], and underwent cardiac catheterization with angioplasty. He has a known subdural hematoma, and was therefore not given a stent. During the procedure, he apparently coded, and was transferred to [facility] for evaluation of the possibility of surgical therapy for the subdural hematoma. He was deemed not to be a surgical candidate, and was transferred back here. Since then, cardiology has managed his antiarrhythmics. He was able to be moved out of the ICU and was extubated. He has had physical therapy. Urinary tract infection was discovered and treated appropriately. He had some vomiting that resolved spontaneously. He has now reached his baseline, and will be ready for discharge. We will order home health and home PT for him. Medication reconciliation has been performed. Regular diet. Activity as prescribed by PT. Follow-up with local physician. This note was completed using [employer] voice recognition software. There may be thermograph operator errors as a result. Diagnosis - Discharge Diagnosis (1) Acute ST elevation myocardial infarction (STEMI) of inferior wall Status: Resolved Specialty Discharge - Follow Up or Referrals Follow up with: Dale Chawla MD [Physician] - 1 Month Discharge Plan - Discharge Data Disposition: Home Health Service Condition at Discharge: Stable Discharge Diet: advance to your usual diet Activity: as per physical therapy Hygiene: no restrictions - Discharge Medications New Amiodarone Tab [Cordarone Tab] 200 mg PO DAILY #30 tablet Sulfameth/Trimeth 400-80 Tab [Bactrim Tab] 1 tablet PO BID #10 tablet Continue Tamsulosin [Flomax] 0.4 mg PO BEDTIME Furosemide Tab [Lasix Tab] 20 mg PO DAILY Valsartan 160 mg PO BEDTIME Atorvastatin [Lipitor] 80 mg PO DAILY Megestrol Liquid [Megace Liquid] 10 ml PO BID Clorazepate [Tranxene] 3.75 mg PO DAILY PRN PRN Reason: Anxiety Valsartan [Diovan] 160 mg PO BEDTIME Atenolol 25 mg PO DAILY Aspirin Chew Tab 81 mg PO DAILY Ergocalciferol (Vitamin D2) [Vitamin D2] 50,000 unit PO Q7DAY levETIRAcetam [Levetiracetam] 500 mg PO BID - Follow Up or Referral Follow Up: Dale Chawla MD [Physician] - 1 Month - Forms/Instructions Exam - Constitutional Vitals: Period Temp Pulse Resp BP Sys/Mcfarlane Pulse Ox Last 24 Hr 97.1 F-97.9 F 40-101 16-20 91-114/63-93 93-98 Vital signs are noted above. He is awake and conversant. Heart is regular with distant tones and soft systolic murmur. Lungs are fairly clear with no rales or wheezes. DS: Provider Date of admission: 09/03/16 21:46 Primary care physician: Marc Beach MD Attending physician on admission: Marc Beach MD Consults: 09/03/16 21:53 Consult to Case Mgmt/Social Srvs [CONS] Routine Reason for Case Mgmt/Social Srvs: Other Home Health Consult Comment: Rehabilitation Consult to Occupational Therapy [CONS] Routine Reason for Occupational Therapy: Weakness Consult to Physical Therapy [CONS] Routine Reason for Physical Therapy: Weakness Consult to Physician [CONS] Routine Comment: Consulting Provider: Dale Chawla Consulting Provider Notified: Yes Consult to Specialist Group: Neurology When should Consulting Provider be notified: In am Person Notified: FABIOLA Date Notified: 09/04/16 Time Notified: 08:35 09/03/16 22:39 Consult to Dietitian [CONS] Routine Reason for Dietitian: Dietary Consult 09/16/16 13:52 Consult to Case Mgmt/Social Srvs [CONS] Routine Reason for Case Mgmt/Social Srvs: Equipment Consult Comment: Patient's family request a lift prior to discharge. 09/18/16 11:01 Consult to Physician [CONS] Routine Comment: severe scrotal edema with now indwelling catheter Consulting Provider: Andrez Workman Consult to Specialist Group: Urology When should Consulting Provider be notified: Now Person Notified: MARTY Date Notified: 09/18/16 Time Notified: 11:15 09/21/16 14:21 Consult to Physician [CONS] Routine Comment: vtach/vfib Consulting Provider: Cardiology - [facility] Consulting Provider Notified: No When should Consulting Provider be notified: Now Consult to Specialist Group: Cardiology When should Consulting Provider be notified: Now Person Notified: MARY Date Notified: 09/21/16 Time Notified: 14:38 Discharging clinician: Marquez Wilson MD Expected date of discharge: 09/27/16
[2016-09-27 11:18] VITALS: BP 123/82
== END 2016-09-27 14:50 | disposition home health service (06) | DRG 250 ==
LOC: N.ICU 21:26 → SUATTDRO 21:26 → N.2E 09-04 13:02
PROVIDERS: ADMIT Internal Medicine; ATTEND Internal Medicine Geriatric Medicine

== ENCOUNTER 2017-01-15 12:59 | Inpatient (IN) ==
[2017-01-15 14:25] LABS: Basophils % 0.6 % (0.0-0.8); Eosinophils # 0.1 10*3/uL (0.0-0.87); Eosinophils % 2.6 % (0.00-10.9); Hemoglobin 12.3 GM/DL (14.0-18.0); Immature Granulocytes % 0.6 %; Immature Granulocytes Absolute 0.03 #; Lymphocytes # 1.9 10*3/uL (1.4-4.0); Lymphocytes % 34.8 % (21.2-54.2); Mean Corpuscular HGB Conc 32.4 GM/DL (32-36); Mean Corpuscular Hemoglobin 30 PG (27-34); Monocytes # 0.6 10*3/uL (0.11-0.8); Monocytes % 10.1 % (1.7-12.7); Neutrophils # 2.8 10*3/uL (1.4-7.4); Neutrophils % 51.3 % (38.7-73.9); Platelet Count 191 T/CUMM (130-400); Red Blood Count 4.13 MC/CUMM (3.8-5.5); Red Cell Distribution Width 14.4 % (9.3-17.3); White Blood Count 5.4 T/CUMM (4-12)
[2017-01-15 14:43] LABS: Albumin 2.3 G/DL (3.4-5.0); Bilirubin,Total 0.4 MG/DL (0.2-1.0); Calcium 8.3 MG/DL (8.5-10.1); Magnesium 1.9 MG/DL (1.8-2.4); Osmolality,Calculated 279.1 MOS/KG (273-304); Potassium 3.5 MMOL/L (3.5-5.1); Total Protein 6.8 G/DL (6.4-8.3); Troponin I Only 0.018 NG/ML (0.00-0.045)
[2017-01-15 16:00] LABS: Apearance,Urine CLEAR (Clear); Bilirubin,Urine Negative (Negative); Blood, Urine Negative (Negative); Glucose,Urine (UA) Negative (Negative); Ketones,Urine Negative (Negative); Mucus,Urine Occasional /LPF (Occasional); Nitrite,Urine Negative (Negative); Protein,Urine Negative; RBC,Urine 1 /HPF (0-4); Urine Color Yellow (Yellow); WBC,Urine 3 /HPF (0-6)
[2017-01-15] MEDS ORDERED: ONDANSETRON 4 MG/2 ML VIAL IV PRN (16:17)
[2017-01-15] MEDS ORDERED: diphenhydrAMINE CAP 25 MG CAPSULE PO PRN (16:17)
[2017-01-15] MEDS ORDERED: ACETAMINOPHEN 325 MG TABLET PO PRN ×2 (16:17)
[2017-01-15] MEDS ORDERED: guaiFENesin/DM ER 600-30 MG TABLET PO PRN (16:17)
[2017-01-15] MEDS ORDERED: MORPHINE 2 MG/1 ML SYRINGE IV PRN (16:17)
[2017-01-15] MEDS ORDERED: DOCUSATE SODIUM 100 MG CAPSULE PO PRN (16:17)
[2017-01-15] MEDS ORDERED: ALBUTEROL 2.5 MG/3 ML NEB RESP TX PRN (16:53)
[2017-01-15] MEDS ORDERED: ERGOCALCIFEROL 50,000 UNIT CAPSULE PO SCH (18:26)
[2017-01-15] MEDS ORDERED: ALBUTEROL/IPRATROPIUM 3 ML NEB RESP TX PRN (18:26)
[2017-01-15] MEDS ORDERED: CLORAZEPATE 3.75 MG TABLET PO PRN (18:26)
[2017-01-15] MEDS ORDERED: FUROSEMIDE 40 MG/4 ML VIAL IV ONE (18:53)
[2017-01-15] MEDS: ALBUTEROL/IPRATROPIUM 3 ML NEB RESP TX SCH (19:59)
[2017-01-15 20:01] LABS: Troponin I Only < 0.015 NG/ML (0.00-0.045)
[2017-01-15] MEDS: ASPIRIN CHEW 81 MG TABLET PO SCH (20:20)
[2017-01-15] MEDS: TAMSULOSIN 0.4 MG CAPSULE PO SCH (20:20)
[2017-01-15] MEDS: PANTOPRAZOLE 40 MG TABLET PO SCH (20:20)
[2017-01-15] MEDS: ATORVASTATIN 20 MG TABLET PO SCH (20:20)
[2017-01-15] MEDS: levETIRAcetam 500 MG TABLET PO SCH (20:20)
[2017-01-15] MEDS: METOPROLOL TARTRATE 25 MG TABLET PO SCH (20:21)
[2017-01-15] MEDS: MEGESTROL 400 MG/10 ML UDCUP PO SCH (20:29)
[2017-01-15] MEDS: LEVOFLOXACIN INJ 750 MG in PREMIX 1 EACH IV SCH (20:30)
[2017-01-16] MEDS: ALBUTEROL/IPRATROPIUM 3 ML NEB RESP TX SCH ×4 (00:05→19:38)
[2017-01-16 02:55] LABS: Basophils % 0.6 % (0.0-0.8); Eosinophils # 0.2 10*3/uL (0.0-0.87); Hematocrit 30.9 VOL% (42.0-52.0); Hemoglobin 10.2 GM/DL (14.0-18.0); Immature Granulocytes % 0.6 %; Immature Granulocytes Absolute 0.03 #; Lymphocytes # 1.7 10*3/uL (1.4-4.0); Mean Corpuscular Hemoglobin 30 PG (27-34); Mean Corpuscular Volume 91.4 FL (87-102); Mean Platelet Volume 11.3 FL (9.6-12.0); Monocytes # 0.6 10*3/uL (0.11-0.8); Monocytes % 10.5 % (1.7-12.7); Neutrophils # 2.9 10*3/uL (1.4-7.4); Neutrophils % 53.3 % (38.7-73.9); Platelet Count 160 T/CUMM (130-400); Red Blood Count 3.38 MC/CUMM (3.8-5.5); Red Cell Distribution Width 14.3 % (9.3-17.3); White Blood Count 5.3 T/CUMM (4-12)
[2017-01-16 03:28] LABS: Calcium 7.9 MG/DL (8.5-10.1); Magnesium 1.8 MG/DL (1.8-2.4); Osmolality,Calculated 285.7 MOS/KG (273-304); Potassium 3.8 MMOL/L (3.5-5.1)
[2017-01-16 03:33] LABS: Troponin I Only 0.027 NG/ML (0.00-0.045)
[2017-01-16 07:45] LABS: Troponin I Only 0.019 NG/ML (0.00-0.045)
[2017-01-16] MEDS: levETIRAcetam 500 MG TABLET PO SCH ×2 (08:36→20:15)
[2017-01-16] MEDS: ATORVASTATIN 20 MG TABLET PO SCH (08:36)
[2017-01-16] MEDS: MEGESTROL 400 MG/10 ML UDCUP PO SCH ×2 (08:36→20:15)
[2017-01-16] MEDS: ASPIRIN CHEW 81 MG TABLET PO SCH (08:37)
[2017-01-16] MEDS: METOPROLOL TARTRATE 25 MG TABLET PO SCH ×2 (08:37→20:15)
[2017-01-16] MEDS: PANTOPRAZOLE 40 MG TABLET PO SCH (08:37)
[2017-01-16] MEDS: FUROSEMIDE 40 MG/4 ML VIAL IV SCH ×2 (08:37→15:27)
[2017-01-16] MEDS ORDERED: METOPROLOL TARTRATE 25 MG TABLET PO ONE (17:53)
[2017-01-16] MEDS: TAMSULOSIN 0.4 MG CAPSULE PO SCH (20:15)
[2017-01-16] MEDS: LISINOPRIL 5 MG TABLET PO SCH (20:15)
[2017-01-16] MEDS: LEVOFLOXACIN INJ 750 MG in PREMIX 1 EACH IV SCH (20:21)
[2017-01-17] MEDS: ALBUTEROL/IPRATROPIUM 3 ML NEB RESP TX SCH ×4 (00:29→19:46)
[2017-01-17] MEDS: FUROSEMIDE 40 MG/4 ML VIAL IV SCH ×2 (12:09→16:52)
[2017-01-17] MEDS: MEGESTROL 400 MG/10 ML UDCUP PO SCH (12:09)
[2017-01-17] MEDS: levETIRAcetam 500 MG TABLET PO SCH ×2 (12:21→21:45)
[2017-01-17] MEDS: ATORVASTATIN 20 MG TABLET PO SCH (12:22)
[2017-01-17] MEDS: LISINOPRIL 5 MG TABLET PO SCH ×2 (12:22→21:45)
[2017-01-17] MEDS: METOPROLOL TARTRATE 25 MG TABLET PO SCH (12:22)
[2017-01-17] MEDS: PANTOPRAZOLE 40 MG TABLET PO SCH (12:22)
[2017-01-17] MEDS: ASPIRIN CHEW 81 MG TABLET PO SCH (12:23)
[2017-01-17 13:03] LABS: ABG Base Excess 0.9 MMOL/L (-2.5-2.5); ABG HCO3 25.2 MMOL/L (20-26); ABG PCO2 26.2 MM HG (35-48); ABG PH 7.543 (7.35-7.45); ABG TCO2 20.6 MMOL/L (23-27)
[2017-01-17] MEDS ORDERED: SPIRONOLACTONE 25 MG TABLET PO SCH (18:11)
[2017-01-17] MEDS: LEVOFLOXACIN INJ 750 MG in PREMIX 1 EACH IV SCH (21:45)
[2017-01-17] MEDS: SPIRONOLACTONE 25 MG TABLET PO SCH (21:45)
[2017-01-17] MEDS: METOPROLOL SUCCINATE XL 25 MG TABLET PO SCH (21:45)
[2017-01-17] MEDS: TAMSULOSIN 0.4 MG CAPSULE PO SCH (21:45)
[2017-01-18] MEDS ORDERED: METOPROLOL SUCCINATE XL 25 MG TABLET PO ONE (00:05)
[2017-01-18] MEDS: METOPROLOL TARTRATE 5 MG/5 ML VIAL IV SCH ×3 (00:20→00:45)
[2017-01-18] MEDS: ALBUTEROL/IPRATROPIUM 3 ML NEB RESP TX SCH ×4 (01:22→19:45)
[2017-01-18 04:43] LABS: Calcium 8.2 MG/DL (8.5-10.1); Osmolality,Calculated 276.4 MOS/KG (273-304); Potassium 3.8 MMOL/L (3.5-5.1)
[2017-01-18] MEDS: ATORVASTATIN 20 MG TABLET PO SCH (10:13)
[2017-01-18] MEDS: PANTOPRAZOLE 40 MG TABLET PO SCH (10:13)
[2017-01-18] MEDS: levETIRAcetam 500 MG TABLET PO SCH ×2 (10:13→21:49)
[2017-01-18] MEDS: ASPIRIN CHEW 81 MG TABLET PO SCH (10:14)
[2017-01-18] MEDS: SPIRONOLACTONE 25 MG TABLET PO SCH (10:14)
[2017-01-18] MEDS: FUROSEMIDE 40 MG/4 ML VIAL IV SCH ×2 (10:14→17:05)
[2017-01-18] MEDS: METOPROLOL SUCCINATE XL 25 MG TABLET PO SCH ×2 (13:15→21:49)
[2017-01-18] MEDS: LISINOPRIL 5 MG TABLET PO SCH ×2 (14:17→22:39)
[2017-01-18] MEDS: LEVOFLOXACIN INJ 750 MG in PREMIX 1 EACH IV SCH (18:47)
[2017-01-18] MEDS: TAMSULOSIN 0.4 MG CAPSULE PO SCH (21:49)
[2017-01-19] MEDS: ALBUTEROL/IPRATROPIUM 3 ML NEB RESP TX SCH ×4 (00:08→20:01)
[2017-01-19 04:41] LABS: Basophils % 0.5 % (0.0-0.8); Eosinophils # 0.1 10*3/uL (0.0-0.87); Eosinophils % 1.7 % (0.00-10.9); Hematocrit 30.4 VOL% (42.0-52.0); Hemoglobin 9.9 GM/DL (14.0-18.0); Immature Granulocytes % 0.3 %; Immature Granulocytes Absolute 0.02 #; Lymphocytes # 1.6 10*3/uL (1.4-4.0); Lymphocytes % 26.7 % (21.2-54.2); Mean Corpuscular HGB Conc 32.6 GM/DL (32-36); Mean Corpuscular Hemoglobin 30 PG (27-34); Mean Platelet Volume 11.2 FL (9.6-12.0); Monocytes # 0.6 10*3/uL (0.11-0.8); Monocytes % 9.4 % (1.7-12.7); Neutrophils # 3.7 10*3/uL (1.4-7.4); Neutrophils % 61.4 % (38.7-73.9); Platelet Count 183 T/CUMM (130-400); Red Blood Count 3.34 MC/CUMM (3.8-5.5); Red Cell Distribution Width 14.4 % (9.3-17.3)
[2017-01-19 05:32] LABS: Osmolality,Calculated 276.4 MOS/KG (273-304); Potassium 3.4 MMOL/L (3.5-5.1)
[2017-01-19] MEDS: METOPROLOL SUCCINATE XL 25 MG TABLET PO SCH ×2 (09:59→20:55)
[2017-01-19] MEDS: levETIRAcetam 500 MG TABLET PO SCH ×2 (10:00→20:56)
[2017-01-19] MEDS: PANTOPRAZOLE 40 MG TABLET PO SCH (10:00)
[2017-01-19] MEDS: SPIRONOLACTONE 25 MG TABLET PO SCH (10:01)
[2017-01-19] MEDS: FUROSEMIDE 40 MG/4 ML VIAL IV SCH ×2 (10:02→15:43)
[2017-01-19] MEDS: ASPIRIN CHEW 81 MG TABLET PO SCH (10:02)
[2017-01-19] MEDS: ATORVASTATIN 20 MG TABLET PO SCH (10:02)
[2017-01-19] MEDS: LISINOPRIL 5 MG TABLET PO SCH (10:16)
[2017-01-19] MEDS: LEVOFLOXACIN 500 MG TABLET PO SCH (14:36)
[2017-01-19] MEDS: POTASSIUM CHLORIDE 20 MEQ TABLET PO SCH ×2 (14:36→17:52)
[2017-01-19] MEDS: TAMSULOSIN 0.4 MG CAPSULE PO SCH (20:56)
[2017-01-19] MEDS: LISINOPRIL 10 MG TABLET PO SCH (20:56)
[2017-01-20] MEDS: ALBUTEROL/IPRATROPIUM 3 ML NEB RESP TX SCH ×4 (01:48→20:03)
[2017-01-20 06:35] LABS: Basophils # 0.1 10*3/uL (0.0-0.2); Basophils % 0.7 % (0.0-0.8); Eosinophils # 0.1 10*3/uL (0.0-0.87); Eosinophils % 1.7 % (0.00-10.9); Hematocrit 34.4 VOL% (42.0-52.0); Hemoglobin 10.7 GM/DL (14.0-18.0); Immature Granulocytes % 1.3 %; Immature Granulocytes Absolute 0.09 #; Lymphocytes # 1.6 10*3/uL (1.4-4.0); Lymphocytes % 22.3 % (21.2-54.2); Mean Corpuscular HGB Conc 31.1 GM/DL (32-36); Mean Corpuscular Hemoglobin 30 PG (27-34); Mean Corpuscular Volume 97.2 FL (87-102); Mean Platelet Volume 10.9 FL (9.6-12.0); Monocytes # 0.9 10*3/uL (0.11-0.8); Monocytes % 12.5 % (1.7-12.7); Neutrophils # 4.4 10*3/uL (1.4-7.4); Neutrophils % 61.5 % (38.7-73.9); Platelet Count 153 T/CUMM (130-400); Red Blood Count 3.54 MC/CUMM (3.8-5.5); Red Cell Distribution Width 14.6 % (9.3-17.3); White Blood Count 7.1 T/CUMM (4-12)
[2017-01-20 06:50] LABS: Calcium 8.1 MG/DL (8.5-10.1); Magnesium 1.8 MG/DL (1.8-2.4); Osmolality,Calculated 280.1 MOS/KG (273-304); Potassium 4.5 MMOL/L (3.5-5.1)
[2017-01-20] MEDS: ATORVASTATIN 20 MG TABLET PO SCH (08:53)
[2017-01-20] MEDS: SPIRONOLACTONE 25 MG TABLET PO SCH (08:54)
[2017-01-20] MEDS: levETIRAcetam 500 MG TABLET PO SCH ×2 (08:54→20:55)
[2017-01-20] MEDS: FUROSEMIDE 40 MG/4 ML VIAL IV SCH ×2 (08:55→17:04)
[2017-01-20] MEDS: PANTOPRAZOLE 40 MG TABLET PO SCH (08:55)
[2017-01-20] MEDS: METOPROLOL SUCCINATE XL 25 MG TABLET PO SCH (08:55)
[2017-01-20] MEDS: LISINOPRIL 10 MG TABLET PO SCH ×2 (08:55→21:16)
[2017-01-20] MEDS: ASPIRIN CHEW 81 MG TABLET PO SCH (08:55)
[2017-01-20] MEDS: LEVOFLOXACIN 500 MG TABLET PO SCH (09:03)
[2017-01-20] MEDS ORDERED: METOPROLOL SUCCINATE XL 25 MG TABLET PO ONE (10:19)
[2017-01-20] MEDS: TAMSULOSIN 0.4 MG CAPSULE PO SCH (20:55)
[2017-01-20] MEDS: METOPROLOL SUCCINATE XL 50 MG TABLET PO SCH (20:55)
[2017-01-21] MEDS: ALBUTEROL/IPRATROPIUM 3 ML NEB RESP TX SCH ×3 (00:56→12:09)
[2017-01-21 05:15] LABS: Basophils % 0.4 % (0.0-0.8); Eosinophils # 0.1 10*3/uL (0.0-0.87); Eosinophils % 1.3 % (0.00-10.9); Hemoglobin 9.7 GM/DL (14.0-18.0); Immature Granulocytes % 0.6 %; Immature Granulocytes Absolute 0.04 #; Lymphocytes # 1.4 10*3/uL (1.4-4.0); Lymphocytes % 20.6 % (21.2-54.2); Mean Corpuscular HGB Conc 32.3 GM/DL (32-36); Mean Corpuscular Hemoglobin 29 PG (27-34); Mean Corpuscular Volume 90.9 FL (87-102); Mean Platelet Volume 11.3 FL (9.6-12.0); Monocytes # 0.8 10*3/uL (0.11-0.8); Monocytes % 11.1 % (1.7-12.7); Neutrophils # 4.6 10*3/uL (1.4-7.4); Platelet Count 182 T/CUMM (130-400); Red Cell Distribution Width 14.4 % (9.3-17.3); White Blood Count 6.9 T/CUMM (4-12)
[2017-01-21 05:44] LABS: Osmolality,Calculated 277.5 MOS/KG (273-304); Potassium 3.9 MMOL/L (3.5-5.1)
[2017-01-21] MEDS: ATORVASTATIN 20 MG TABLET PO SCH (09:11)
[2017-01-21] MEDS: ASPIRIN CHEW 81 MG TABLET PO SCH (09:12)
[2017-01-21] MEDS: SPIRONOLACTONE 25 MG TABLET PO SCH (09:12)
[2017-01-21] MEDS: levETIRAcetam 500 MG TABLET PO SCH (09:12)
[2017-01-21] MEDS: PANTOPRAZOLE 40 MG TABLET PO SCH (09:12)
[2017-01-21] MEDS: LEVOFLOXACIN 500 MG TABLET PO SCH (09:13)
[2017-01-21] MEDS: LISINOPRIL 10 MG TABLET PO SCH (09:13)
[2017-01-21] MEDS: METOPROLOL SUCCINATE XL 50 MG TABLET PO SCH (09:13)
[2017-01-21] MEDS: FUROSEMIDE 40 MG/4 ML VIAL IV SCH (09:17)
[2017-01-21 15:59] VITALS: BP 109/49
== END 2017-01-21 16:32 | disposition home health service (06) | DRG 314 ==
LOC: EDUNIT# → EDBD → N.ED 12:59 → N.EDINP 15:44 → SUATTDRO 15:44 → N.5E 18:08 → N.CVR 01-17 08:49 → N.ICU 01-17 11:55 → N.TELEN 01-19 12:56
PROVIDERS: ADMIT Family Medicine; ATTEND Internal Medicine

== ENCOUNTER 2017-02-03 18:41 | Inpatient (IN) ==
[2017-02-03] MEDS ORDERED: SODIUM CHLORIDE 0.9% 1,000 ML IV STA (19:41)
[2017-02-03 19:49] LABS: Basophils % 0.3 % (0.0-0.8); Eosinophils % 0.3 % (0.00-10.9); Hematocrit 28.2 VOL% (42.0-52.0); Hemoglobin 9.1 GM/DL (14.0-18.0); Immature Granulocytes % 0.6 %; Immature Granulocytes Absolute 0.05 #; Lymphocytes # 1.1 10*3/uL (1.4-4.0); Lymphocytes % 13.7 % (21.2-54.2); Mean Corpuscular HGB Conc 32.3 GM/DL (32-36); Mean Corpuscular Hemoglobin 29 PG (27-34); Monocytes # 0.9 10*3/uL (0.11-0.8); Monocytes % 10.8 % (1.7-12.7); Neutrophils # 5.9 10*3/uL (1.4-7.4); Neutrophils % 74.3 % (38.7-73.9); Platelet Count 313 T/CUMM (130-400); Red Cell Distribution Width 14.6 % (9.3-17.3); White Blood Count 7.9 T/CUMM (4-12)
[2017-02-03 20:29] LABS: Albumin 1.9 G/DL (3.4-5.0); Total Protein 6.3 G/DL (6.4-8.3)
[2017-02-03 20:30] LABS: Osmolality,Calculated 282.1 MOS/KG (273-304)
[2017-02-03 20:49] LABS: Apearance,Urine Slightly Hazy (Clear); Bilirubin,Urine Negative (Negative); Blood, Urine Small mg/dL (Negative); Glucose,Urine (UA) Negative (Negative); Hyaline Casts,Urine 4 /LPF (0-3); Ketones,Urine Negative (Negative); Mucus,Urine Occasional /LPF (Occasional); Nitrite,Urine Negative (Negative); Protein,Urine Negative; RBC,Urine 2 /HPF (0-4); Squamous Epithelial Cell,Urine Occasional /HPF (0-10); Urine Color Yellow (Yellow); Urine Specific Gravity 1.017 (1.001-1.035); WBC,Urine 3 /HPF (0-6)
[2017-02-03] MEDS ORDERED: cefTRIAXone 1,000 MG in SODIUM CHLORIDE 0.9% 100 ML IV STA (21:01)
[2017-02-03] MEDS ORDERED: ONDANSETRON 4 MG/2 ML VIAL IV PRN (21:33)
[2017-02-03] MEDS ORDERED: ALBUTEROL 2.5 MG/3 ML NEB RESP TX PRN (21:33)
[2017-02-03] MEDS ORDERED: cefTRIAXone 1,000 MG VIAL ONE (22:06)
[2017-02-04] MEDS: ALBUTEROL/IPRATROPIUM 3 ML NEB RESP TX SCH ×4 (00:36→18:40)
[2017-02-04] MEDS: AZITHROMYCIN INJ 500 MG in SODIUM CHLORIDE 0.9% 250 ML IV SCH (01:00)
[2017-02-04] MEDS ORDERED: INFLUENZA VIRUS VACCINE 0.5 ML SYRINGE IM ONE (01:56)
[2017-02-04 06:24] LABS: Basophils % 0.2 % (0.0-0.8); Eosinophils % 0.3 % (0.00-10.9); Hematocrit 26.9 VOL% (42.0-52.0); Hemoglobin 8.8 GM/DL (14.0-18.0); Immature Granulocytes % 0.7 %; Immature Granulocytes Absolute 0.06 #; Lymphocytes # 1.1 10*3/uL (1.4-4.0); Lymphocytes % 12.6 % (21.2-54.2); Mean Corpuscular HGB Conc 32.7 GM/DL (32-36); Mean Corpuscular Hemoglobin 30 PG (27-34); Mean Corpuscular Volume 90.6 FL (87-102); Mean Platelet Volume 10.1 FL (9.6-12.0); Monocytes # 0.7 10*3/uL (0.11-0.8); Monocytes % 8.1 % (1.7-12.7); Neutrophils # 6.8 10*3/uL (1.4-7.4); Neutrophils % 78.1 % (38.7-73.9); Platelet Count 312 T/CUMM (130-400); Red Blood Count 2.97 MC/CUMM (3.8-5.5); Red Cell Distribution Width 14.6 % (9.3-17.3); White Blood Count 8.7 T/CUMM (4-12)
[2017-02-04 06:50] LABS: Calcium 8.2 MG/DL (8.5-10.1); Osmolality,Calculated 287.7 MOS/KG (273-304)
[2017-02-04] MEDS: cefTRIAXone 1,000 MG in SYRINGE 1 EACH IV SCH (21:05)
[2017-02-05] MEDS: ALBUTEROL/IPRATROPIUM 3 ML NEB RESP TX SCH ×4 (00:05→19:33)
[2017-02-05] MEDS: AZITHROMYCIN INJ 500 MG in SODIUM CHLORIDE 0.9% 250 ML IV SCH (01:19)
[2017-02-05] MEDS: DEXTROSE 5% NACL 0.9% 1,000 ML IV SCH (11:31)
[2017-02-05] MEDS ORDERED: FUROSEMIDE 40 MG/4 ML VIAL IV ONE (13:45)
[2017-02-05] MEDS ORDERED: AZITHROMYCIN 250 MG TABLET PO SCH (21:00)
[2017-02-05] MEDS: cefTRIAXone 1,000 MG in SYRINGE 1 EACH IV SCH (21:54)
[2017-02-06] MEDS ORDERED: AZITHROMYCIN INJ 500 MG in SODIUM CHLORIDE 0.9% 250 ML IV SCH
[2017-02-06] MEDS: ALBUTEROL/IPRATROPIUM 3 ML NEB RESP TX SCH ×2 (00:03→07:25)
[2017-02-06] MEDS: DEXTROSE 5% NACL 0.9% 1,000 ML IV SCH ×3 (01:00→15:13)
[2017-02-06 07:22] LABS: Basophils % 0.5 % (0.0-0.8); Eosinophils # 0.1 10*3/uL (0.0-0.87); Eosinophils % 2.1 % (0.00-10.9); Hematocrit 26.2 VOL% (42.0-52.0); Hemoglobin 8.4 GM/DL (14.0-18.0); Immature Granulocytes % 0.5 %; Immature Granulocytes Absolute 0.03 #; Lymphocytes % 15.7 % (21.2-54.2); Mean Corpuscular HGB Conc 32.1 GM/DL (32-36); Mean Corpuscular Hemoglobin 30 PG (27-34); Mean Corpuscular Volume 92.6 FL (87-102); Mean Platelet Volume 10.2 FL (9.6-12.0); Monocytes # 0.6 10*3/uL (0.11-0.8); Monocytes % 9.4 % (1.7-12.7); Neutrophils # 4.5 10*3/uL (1.4-7.4); Neutrophils % 71.8 % (38.7-73.9); Platelet Count 298 T/CUMM (130-400); Red Blood Count 2.83 MC/CUMM (3.8-5.5); Red Cell Distribution Width 14.7 % (9.3-17.3); White Blood Count 6.2 T/CUMM (4-12)
[2017-02-06 07:50] LABS: Calcium 8.1 MG/DL (8.5-10.1); Magnesium 2.3 MG/DL (1.8-2.4); Osmolality,Calculated 295.1 MOS/KG (273-304); Potassium 3.4 MMOL/L (3.5-5.1)
[2017-02-06 11:28] VITALS: BP 111/73
== END 2017-02-06 15:00 | disposition hospice, home (50) | DRG 177 ==
LOC: N.ED 18:41 → N.EDINP 21:33 → N.5E 22:19
PROVIDERS: ADMIT Internal Medicine; ATTEND Internal Medicine

== ENCOUNTER 2017-02-18 18:07 | Inpatient (IN) ==
[2017-02-18] MEDS ORDERED: cefTRIAXone 1,000 MG in SODIUM CHLORIDE 0.9% 100 ML IV STA (19:15)
[2017-02-18] MEDS ORDERED: ALBUTEROL/IPRATROPIUM 3 ML NEB RESP TX STA (19:15)
[2017-02-18] MEDS ORDERED: MORPHINE 2 MG/1 ML SYRINGE IV STA (19:15)
[2017-02-18] MEDS ORDERED: ONDANSETRON 4 MG/2 ML VIAL IV STA (19:15)
[2017-02-18] MEDS ORDERED: SODIUM CHLORIDE 0.9% 500 ML IV STA (19:15)
[2017-02-18] MEDS ORDERED: MORPHINE 2 MG/1 ML SYRINGE ONE (19:58)
[2017-02-18] MEDS ORDERED: cefTRIAXone 1,000 MG VIAL ONE (19:58)
[2017-02-18] MEDS ORDERED: ONDANSETRON 4 MG/2 ML VIAL ONE (19:58)
[2017-02-18 20:09] LABS: Basophils % 0.5 % (0.0-0.8); Eosinophils # 0.1 10*3/uL (0.0-0.87); Eosinophils % 0.7 % (0.00-10.9); Hematocrit 37.8 VOL% (42.0-52.0); Hemoglobin 11.1 GM/DL (14.0-18.0); Immature Granulocytes % 0.8 %; Immature Granulocytes Absolute 0.06 #; Lymphocytes # 1.3 10*3/uL (1.4-4.0); Lymphocytes % 17.4 % (21.2-54.2); Mean Corpuscular HGB Conc 29.4 GM/DL (32-36); Mean Corpuscular Hemoglobin 29 PG (27-34); Mean Corpuscular Volume 97.7 FL (87-102); Mean Platelet Volume 11.6 FL (9.6-12.0); Monocytes # 0.4 10*3/uL (0.11-0.8); Monocytes % 5.5 % (1.7-12.7); NRBC # 0.02 10*3/uL; Neutrophils # 5.8 10*3/uL (1.4-7.4); Neutrophils % 75.1 % (38.7-73.9); Platelet Count 242 T/CUMM (130-400); Red Blood Count 3.87 MC/CUMM (3.8-5.5); Red Cell Distribution Width 18.1 % (9.3-17.3); White Blood Count 7.7 T/CUMM (4-12)
[2017-02-18 20:18] LABS: INR 1.4; PT Patient Result 14.1 SECS
[2017-02-18 20:31] LABS: Albumin 2.6 G/DL (3.4-5.0); Bilirubin,Total 1.2 MG/DL (0.2-1.0); Calcium 8.8 MG/DL (8.5-10.1); Magnesium 2.4 MG/DL (1.8-2.4); Osmolality,Calculated 313.7 MOS/KG (273-304); Potassium 3.1 MMOL/L (3.5-5.1); Total Protein 8.2 G/DL (6.4-8.3)
[2017-02-18 20:38] LABS: Troponin I Only 0.457 NG/ML (0.00-0.045)
[2017-02-18 20:43] LABS: ABG Base Excess 1.8 MMOL/L (-2.5-2.5); ABG Oxygen Saturation 94.5 % (95-100); ABG PCO2 32.7 MM HG (35-48); ABG PH 7.497 (7.35-7.45); ABG PO2 67.8 MM HG (80-95); ABG TCO2 25.4 MMOL/L (23-27); Allen Test Positive; Pt O2 Delivery Device Room Air
[2017-02-18] MEDS ORDERED: POTASSIUM CHLORIDE 20 MEQ TABLET PO STA (21:08)
[2017-02-18] MEDS ORDERED: POTASSIUM CHLORIDE 20 MEQ TABLET PO ONE (22:39)
[2017-02-18] MEDS ORDERED: ONDANSETRON 4 MG/2 ML VIAL IV PRN (23:12)
[2017-02-18] MEDS ORDERED: MORPHINE 2 MG/1 ML SYRINGE IV PRN (23:12)
[2017-02-18] MEDS ORDERED: ALBUTEROL/IPRATROPIUM 3 ML NEB RESP TX PRN (23:23)
[2017-02-18] MEDS ORDERED: POTASSIUM CHLORIDE RIDER 10 MEQ in PREMIX 1 EACH IV PRN (23:23)
[2017-02-19] MEDS: DEXTROSE 5% 1,000 ML IV SCH ×2 (01:52→20:16)
[2017-02-19] MEDS: POTASSIUM CHLORIDE RIDER 10 MEQ in PREMIX 1 EACH IV PRN ×4 (02:15→05:43)
[2017-02-19] MEDS: METOPROLOL TARTRATE 5 MG/5 ML VIAL IV SCH ×4 (02:17→18:13)
[2017-02-19 03:02] LABS: Basophils % 0.4 % (0.0-0.8); Eosinophils # 0.1 10*3/uL (0.0-0.87); Eosinophils % 0.6 % (0.00-10.9); Hematocrit 30.7 VOL% (42.0-52.0); Hemoglobin 9.1 GM/DL (14.0-18.0); Immature Granulocytes % 0.6 %; Immature Granulocytes Absolute 0.05 #; Lymphocytes # 1.3 10*3/uL (1.4-4.0); Lymphocytes % 15.2 % (21.2-54.2); Mean Corpuscular HGB Conc 29.6 GM/DL (32-36); Mean Corpuscular Hemoglobin 29 PG (27-34); Mean Corpuscular Volume 96.8 FL (87-102); Mean Platelet Volume 11.6 FL (9.6-12.0); Monocytes # 0.7 10*3/uL (0.11-0.8); Monocytes % 7.6 % (1.7-12.7); NRBC # 0.03 10*3/uL; Neutrophils # 6.5 10*3/uL (1.4-7.4); Neutrophils % 75.6 % (38.7-73.9); Platelet Count 222 T/CUMM (130-400); Red Blood Count 3.17 MC/CUMM (3.8-5.5); Red Cell Distribution Width 17.8 % (9.3-17.3); White Blood Count 8.6 T/CUMM (4-12)
[2017-02-19 03:38] LABS: Albumin 2.1 G/DL (3.4-5.0); Bilirubin,Total 0.9 MG/DL (0.2-1.0); Potassium 3.3 MMOL/L (3.5-5.1); Total Protein 6.4 G/DL (6.4-8.3)
[2017-02-19 04:00] LABS: Osmolality,Calculated 316.6 MOS/KG (273-304)
[2017-02-19] MEDS ORDERED: SODIUM BICARB INJ 50 MEQ in STERILE WATER INJ 1,000 ML IV SCH (05:00)
[2017-02-19] MEDS ORDERED: FUROSEMIDE 40 MG/4 ML VIAL IV SCH (08:00)
[2017-02-19] MEDS: ZINC OXIDE PASTE 113 GM TUBE TOP SCH ×2 (09:23→20:17)
[2017-02-19] MEDS: PANTOPRAZOLE 40 MG VIAL IV SCH (09:23)
[2017-02-19] MEDS: FUROSEMIDE 40 MG/4 ML VIAL IV SCH ×2 (09:23→15:28)
[2017-02-20] MEDS: METOPROLOL TARTRATE 5 MG/5 ML VIAL IV SCH ×5 (05:32→23:57)
[2017-02-20] MEDS: PANTOPRAZOLE 40 MG VIAL IV SCH (08:45)
[2017-02-20] MEDS: FUROSEMIDE 40 MG/4 ML VIAL IV SCH ×2 (08:45→17:22)
[2017-02-20] MEDS: ZINC OXIDE PASTE 113 GM TUBE TOP SCH (08:46)
[2017-02-20] MEDS: DEXTROSE 5% 1,000 ML IV SCH (17:34)
[2017-02-21] MEDS: METOPROLOL TARTRATE 5 MG/5 ML VIAL IV SCH ×3 (06:22→18:05)
[2017-02-21 07:44] LABS: Calcium 7.7 MG/DL (8.5-10.1); Osmolality,Calculated 308.2 MOS/KG (273-304); Potassium 2.9 MMOL/L (3.5-5.1)
[2017-02-21] MEDS: FUROSEMIDE 40 MG/4 ML VIAL IV SCH ×2 (09:54→17:19)
[2017-02-21] MEDS: POTASSIUM CHLORIDE RIDER 10 MEQ in PREMIX 1 EACH IV PRN (09:54)
[2017-02-21] MEDS: ZINC OXIDE PASTE 113 GM TUBE TOP SCH ×3 (09:55→21:06)
[2017-02-21] MEDS: PANTOPRAZOLE 40 MG VIAL IV SCH (09:55)
[2017-02-21] MEDS: POTASSIUM CHLORIDE INJ 40 MEQ in DEXTROSE 5% 1,000 ML IV SCH (14:54)
[2017-02-22] MEDS: METOPROLOL TARTRATE 5 MG/5 ML VIAL IV SCH ×4 (01:15→18:05)
[2017-02-22 08:00] LABS: Magnesium 1.9 MG/DL (1.8-2.4); Osmolality,Calculated 300.7 MOS/KG (273-304); Potassium 3.3 MMOL/L (3.5-5.1)
[2017-02-22] MEDS: FUROSEMIDE 40 MG/4 ML VIAL IV SCH ×2 (08:54→17:24)
[2017-02-22] MEDS: PANTOPRAZOLE 40 MG VIAL IV SCH (08:58)
[2017-02-22] MEDS: ZINC OXIDE PASTE 113 GM TUBE TOP SCH ×2 (08:58→22:30)
[2017-02-22] MEDS: POTASSIUM CHLORIDE RIDER 10 MEQ in PREMIX 1 EACH IV PRN ×4 (09:00→13:08)
[2017-02-22] MEDS: POTASSIUM CHLORIDE INJ 40 MEQ in DEXTROSE 5% 1,000 ML IV SCH (11:24)
[2017-02-23] MEDS: METOPROLOL TARTRATE 5 MG/5 ML VIAL IV SCH ×4 (01:11→17:47)
[2017-02-23 05:17] LABS: Calcium 7.8 MG/DL (8.5-10.1); Osmolality,Calculated 294.1 MOS/KG (273-304); Potassium 4.1 MMOL/L (3.5-5.1)
[2017-02-23] MEDS: ZINC OXIDE PASTE 113 GM TUBE TOP SCH ×4 (06:10→21:02)
[2017-02-23] MEDS: PANTOPRAZOLE 40 MG VIAL IV SCH (08:32)
[2017-02-23] MEDS: FUROSEMIDE 40 MG/4 ML VIAL IV SCH ×2 (08:34→15:23)
[2017-02-23] MEDS: POTASSIUM CHLORIDE INJ 40 MEQ in DEXTROSE 5% 1,000 ML IV SCH (12:45)
[2017-02-23] MEDS: CYPROHEPTADINE 4 MG TABLET PO SCH ×2 (14:46→20:56)
[2017-02-23] MEDS: MEGESTROL 400 MG/10 ML UDCUP PO SCH (21:01)
[2017-02-24] MEDS: METOPROLOL TARTRATE 5 MG/5 ML VIAL IV SCH ×2 (00:35→06:24)
[2017-02-24 03:34] LABS: Calcium 8.1 MG/DL (8.5-10.1); Osmolality,Calculated 293.1 MOS/KG (273-304); Potassium 3.9 MMOL/L (3.5-5.1)
[2017-02-24] MEDS: POTASSIUM CHLORIDE INJ 40 MEQ in DEXTROSE 5% 1,000 ML IV SCH (06:24)
[2017-02-24] MEDS: MEGESTROL 400 MG/10 ML UDCUP PO SCH (08:12)
[2017-02-24] MEDS: FUROSEMIDE 40 MG/4 ML VIAL IV SCH (08:12)
[2017-02-24] MEDS: CYPROHEPTADINE 4 MG TABLET PO SCH (08:13)
[2017-02-24] MEDS: PANTOPRAZOLE 40 MG VIAL IV SCH (08:13)
[2017-02-24] MEDS: ZINC OXIDE PASTE 113 GM TUBE TOP SCH (10:12)
[2017-02-24 11:54] VITALS: BP 118/64
== END 2017-02-24 12:23 | disposition hospice, home (50) | DRG 640 ==
LOC: EDUNIT# → EDBD → N.ED 18:07 → N.EDINP 23:10 → N.TELEN 23:54 → N.5E 02-19 12:26
PROVIDERS: ADMIT Hospitalist; ATTEND Hospitalist

== ENCOUNTER 2017-03-10 12:42 | Inpatient (IN) ==
[2017-03-10 14:32] LABS: Eosinophils % 0.4 % (0.00-10.9); Neutrophils # 5.1 10*3/uL (1.4-7.4)
[2017-03-10 14:53] LABS: Basophils % 0.3 % (0.0-0.8); Hematocrit 36.9 VOL% (42.0-52.0); Immature Granulocytes Absolute 0.07 #; Lymphocytes # 1.3 10*3/uL (1.4-4.0); Lymphocytes % 18.2 % (21.2-54.2); Mean Corpuscular Hemoglobin 30 PG (27-34); Mean Corpuscular Volume 103.7 FL (87-102); Mean Platelet Volume 12.9 FL (9.6-12.0); Monocytes # 0.4 10*3/uL (0.11-0.8); Monocytes % 5.8 % (1.7-12.7); NRBC # 0.08 10*3/uL; Neutrophils % 74.3 % (38.7-73.9); Platelet Count 161 T/CUMM (130-400); Red Blood Count 3.56 MC/CUMM (3.8-5.5); Red Cell Distribution Width 21.5 % (9.3-17.3); White Blood Count 6.9 T/CUMM (4-12)
[2017-03-10 14:56] LABS: Hemoglobin 10.7 GM/DL (14.0-18.0)
[2017-03-10 15:07] LABS: Albumin 2.2 G/DL (3.4-5.0); Bilirubin,Total 1.3 MG/DL (0.2-1.0); Calcium 8.9 MG/DL (8.5-10.1); Osmolality,Calculated 323.2 MOS/KG (273-304); Potassium 3.7 MMOL/L (3.5-5.1); Total Protein 7.2 G/DL (6.4-8.3); Troponin I Only 0.159 NG/ML (0.00-0.045)
[2017-03-10] MEDS ORDERED: SODIUM CHLORIDE 0.9% 1,000 ML IV STA (15:55)
[2017-03-10] MEDS: DEXTROSE 5% NACL 0.45% 1,000 ML IV SCH (17:48)
[2017-03-11] MEDS: DEXTROSE 5% NACL 0.45% 1,000 ML IV SCH ×2 (01:46→10:47)
[2017-03-11 05:37] LABS: Calcium 7.9 MG/DL (8.5-10.1); Potassium 2.9 MMOL/L (3.5-5.1)
[2017-03-11 06:01] LABS: Basophils % 0.4 % (0.0-0.8); Eosinophils % 0.8 % (0.00-10.9); Hematocrit 30.9 VOL% (42.0-52.0); Immature Granulocytes % 0.6 %; Immature Granulocytes Absolute 0.03 #; Lymphocytes # 1.2 10*3/uL (1.4-4.0); Lymphocytes % 23.7 % (21.2-54.2); Mean Corpuscular HGB Conc 28.8 GM/DL (32-36); Mean Corpuscular Hemoglobin 29 PG (27-34); Mean Corpuscular Volume 101.3 FL (87-102); Mean Platelet Volume 13.3 FL (9.6-12.0); Monocytes # 0.4 10*3/uL (0.11-0.8); NRBC # 0.06 10*3/uL; Neutrophils # 3.3 10*3/uL (1.4-7.4); Neutrophils % 66.5 % (38.7-73.9); Platelet Count 118 T/CUMM (130-400); Red Blood Count 3.05 MC/CUMM (3.8-5.5); Red Cell Distribution Width 21.4 % (9.3-17.3)
[2017-03-11 06:04] LABS: Hemoglobin 8.9 GM/DL (14.0-18.0)
[2017-03-11 06:20] LABS: Burr Cells Slight; Giant Platelets Few; Hypochromasia 1+; Ovalocytes Slight; Platelet Estimate Decreased
[2017-03-11] MEDS ORDERED: POTASSIUM CHLORIDE RIDER 10 MEQ in PREMIX 1 EACH IV PRN (07:22)
[2017-03-11] MEDS ORDERED: POTASSIUM CHLORIDE INJ 10 MEQ in DEXTROSE 5% 1,000 ML IV SCH (09:30)
[2017-03-11] MEDS: PANTOPRAZOLE 40 MG TABLET PO SCH (09:45)
[2017-03-11] MEDS: DEXT 5% NACL 0.2% KCL 20 MEQ 20 MEQ/1,000 ML BAG IV SCH ×2 (14:37→23:13)
[2017-03-11] MEDS: MORPHINE 2 MG/1 ML SYRINGE IV PRN (21:44)
[2017-03-12 05:37] LABS: Calcium 7.9 MG/DL (8.5-10.1); Potassium 3.8 MMOL/L (3.5-5.1)
[2017-03-12 05:45] LABS: Basophils % 0.5 % (0.0-0.8); Eosinophils # 0.1 10*3/uL (0.0-0.87); Eosinophils % 1.3 % (0.00-10.9); Hematocrit 31.7 VOL% (42.0-52.0); Immature Granulocytes % 1.3 %; Immature Granulocytes Absolute 0.08 #; Lymphocytes # 1.5 10*3/uL (1.4-4.0); Lymphocytes % 24.3 % (21.2-54.2); Mean Corpuscular Hemoglobin 30 PG (27-34); Mean Corpuscular Volume 101.9 FL (87-102); Monocytes # 0.5 10*3/uL (0.11-0.8); NRBC # 0.22 10*3/uL; Neutrophils % 64.6 % (38.7-73.9); Platelet Count 96 T/CUMM (130-400); Red Blood Count 3.11 MC/CUMM (3.8-5.5); White Blood Count 6.1 T/CUMM (4-12)
[2017-03-12 05:46] LABS: Hemoglobin 9.3 GM/DL (14.0-18.0)
[2017-03-12 06:08] LABS: Acanthocytes Few; Giant Platelets Few; Hypochromasia 1+; Ovalocytes Slight; Platelet Estimate Decreased
[2017-03-12] MEDS: DEXT 5% NACL 0.2% KCL 20 MEQ 20 MEQ/1,000 ML BAG IV SCH (07:36)
[2017-03-12] MEDS: PANTOPRAZOLE 40 MG TABLET PO SCH (08:04)
[2017-03-12] MEDS ORDERED: ZINC OXIDE PASTE 113 GM TUBE TOP PRN (11:51)
[2017-03-12 12:23] VITALS: BP 131/83
[2017-03-12] MEDS: MORPHINE 2 MG/1 ML SYRINGE IV PRN (13:31)
== END 2017-03-12 15:49 | disposition hospice, home (50) | DRG 640 ==
LOC: EDUNIT# → EDBD → N.ED 12:42 → N.EDINP 12:42 → N.4E 17:49